=== PATIENT | male | born 1990 | race Caucasian/White ===

== ENCOUNTER 2021-02-08 01:28 | Day surgery (SDC) | payer MEDICARE, MEDICAID, SELFPAY ==
[2021-02-07 08:53] VITALS: BMI 28.3
--- NOTE | 2021-02-07 09:18 | PC.NURSE ---
Report to the Outpatient Waiting Room, entrance under the green pavilion located off [facility], at 1145 on date 02/08/21. OR Time: 1345 - You and your visitor will be asked a series of questions to screen for COVID 19 for your protection. - A mask is required within the hospital. - Only one visitor is allowed at this time. Patient visitors will be guided where to wait when not with patient. Preoperative COVID Testing Requirements: No COVID Test needed if: (proof is required; if not received patient will have Rapid Test prior to entry) - Patient has received COVID Vaccine at least 14 days prior to procedure date or - Patient has positive COVID test result within last 90 days of surgery date. COVID Test needed if above criteria is not met If not COVID vaccinated a COVID test must be conducted within 72 hours of surgery and patient is asked to isolate self from time of testing until procedure. You will go to the [facility] for your COVID testing. The [facility] site is located at the corner of [address] [facility]. You will only be called if COVID results are positive and your surgeon may reschedule your elective surgery date. Patients may have clear liquids (water, carbonated beverages, clear teas, apple juice) until 3 hours prior to surgery with a maximum of 20 ounces. - No food from midnight until time of surgery - Infants may have breast milk until 4 hours before surgery, formula 6 hours prior to surgery. - Children will be allowed to drink immediately following surgery. If applicable, please bring a bottle or sippy cup to assist with drinking. Juice, water, soda, and popsicles are readily available. For infants on formula, please bring formula the day of surgery. Pacifiers are allowed. Take the following medications with a SIP of water the morning of surgery: COGENTIN, BUSPIRONE, DEPAKOTE, SYNTHROID Medications to discontinue per physician: VITAMINS/SUPPLEMENTS Date to take last dose: NOW Please no make-up, nail yakut, hairspray, perfume, deodorant, or body powder the day of surgery. No jewelry (including any body piercings) or valuables the day of surgery, leave them at home. Please take a shower or bath the night before, or the morning of, surgery with an antibacterial soap. Wear comfortable, loose fitting clothing. Children are encouraged to wear pajamas. - Jewelry must be removed prior to entering the operating room. Rings and piercings that are not removed may be cut off. - The hospital will not accept responsibility for valuables. - Please leave all valuables, including medications, at home the day of surgery. If you are going home after surgery, a licensed driver trainer must drive you home. - NO public transportation without another adult. - We recommend that an adult stay with you for 24 hours following discharge. - We also recommend that you do not drive, make important decision, drink alcoholic beverages, or take any drugs that were not prescribed by your health care provider for at least 24 hours after your discharge time. For Pediatric surgeries, we recommend two adults accompany the child home (only one inside the building at this time). Follow any additional instructions given to you from your surgeon. Instructions FAXED TO [facility] ATTN: HERBIE GOMES and asked if any additional questions and then verbalized understanding. Patient advised to call surgeon office or pre surgery nurse liaison [phone] if any additional questions.
[2021-02-08] VITALS (10 sets, daily range): BP systolic 99–120; BP diastolic 48–71; PULSE 62–80; RESP 12–16; TEMP 36.4–37.1; O2SAT 100
--- NOTE | 2021-02-08 06:48 | WPDHPUPDATE1 ---
History and Physical Update Update Date/Time: 02/08/21 06:48 History and Physical has been reviewed, including an updated exam of the patient. There are NO changes in the patient's condition. Risks, benefits, and alternatives have been discussed and questions answered. Patient agrees to proceed with procedure.
[2021-02-08] MEDS: LACTATED RINGERS 1,000 ML 30 ML IV CONT (12:23)
--- NOTE | 2021-02-08 13:05 | P.PNAN_ITS ---
Anes - Initial Pre Proc Eval Procedure: Operation Date: 02/08/21 13:45 Proposed Procedures p Cystoscopy, Urethral Dilatation - Tani Shepherd MD Date/Time: 02/08/21 13:05 Surgeon: Tani Shepherd MD Pre Op Diagnosis: bladder retention Patient Data Age: 30 Gender: M Height: 1.85 m Weight: 97.52 kg Last Vital Signs Temp 37.1 C 02/08/21 12:27 Pulse 75 02/08/21 12:27 Resp 16 02/08/21 12:27 BP 106/56 L 02/08/21 12:27 Pulse Ox 100 02/08/21 12:27 Allergies Allergy/AdvReac Type Severity Reaction Status Date / Time No Known Allergies Allergy Verified 02/07/21 08:41 Home Medications Medication Instructions Recorded Confirmed Type acetaminophen 650 mg PO Q4H PRN 02/07/21 02/07/21 History benztropine [Cogentin] 1 mg PO BID 02/07/21 02/07/21 History buspirone 7.5 mg PO BID 02/07/21 02/07/21 History divalproex [Depakote] 500 mg PO TID 02/07/21 02/07/21 History ergocalciferol (vitamin D2) 1,250 mcg PO WEEKLY 02/07/21 02/07/21 History [Vitamin D2] ferrous sulfate 325 mg PO DAILY 02/07/21 02/07/21 History folic acid 1 mg PO DAILY 02/07/21 02/07/21 History levothyroxine [Synthroid] 50 mcg PO DAILY 02/07/21 02/07/21 History lithium carbonate 450 mg PO HS 02/07/21 02/07/21 History lurasidone [Latuda] 100 mg PO QPM 02/07/21 02/07/21 History olanzapine [Zyprexa] 5 mg PO HS 02/07/21 02/07/21 History polyethylene glycol 3350 [Miralax] 17 g PO DAILY PRN 02/07/21 02/07/21 History sodium chloride [[place] Nasal] 1 spray INTRANASAL BID 02/07/21 02/07/21 History tamsulosin 0.4 mg PO DAILY 02/07/21 02/07/21 History vitamin J19-paatv acid 1 tablet PO DAILY 02/07/21 02/07/21 History Patient hx anesthesia problems: none Family hx anesthesia problems: none Results Review: All pre-operative results and documents have been reviewed as part of the pre-operative evaluation. [facility] Past Medical History Medical History (Updated 02/08/21 @ 13:06 by Jason Cook MD) Anxiety Autism Developmental mental disorder Schizophrenia Social History Social History Smoking status: Never smoker Living arrangements: long-term Additional living arrangements comments: [facility] Lee Final PreProcedure Day of Procedure 02/08/21 13:05 Patient weight: overweight Heart: regular rate and rhythm Lungs: clear to auscultation Airway: Mallampati scale class II Neurological: alert and oriented Last oral intake: >/= 8 hours ASA classification: III Emergent: no Anesthetic plan: proceed Anesthesia type and monitoring: general LMA and standard monitoring Results Review: All pre-operative results and documents have been reviewed as part of the pre-operative evaluation. Informed Consent: The patient's anesthetic plan and its attendant risks and benefits were discussed with the patient/family/POA. Questions were solicited and answers provided to the satisfaction of the patient/family/POA.
[2021-02-08] MEDS: ceFAZolin 2 GM/D5W 50 ML 2 GM/50 ML BAG IVPB (14:26)
--- NOTE | 2021-02-08 14:53 | W.PM.PROC2 ---
Procedure Note - Detailed Date of Procedure 02/08/21 Pre-op Diagnosis Urinary retention, urethral stricture Post-op Diagnosis same Procedure Performed Cystoscopy, urethral dilatation Surgeon Tani Shepherd MD Anesthesia general Description of Procedure The patient was brought to the operative suite where he was prepped and draped in a routine sterile fashion while in a dorsal lithotomy position after the uneventful induction of a general LMA anesthetic. Cystoscopy was undertaken with a 19F rigid cystoscope. There is a moderately constricting bulbous urethral stricture. The prostatic urethral estimated length was 1.0cm. There was no obstruction of the prostatic urethra with no median lobe enlargement. The bladder itself was endoscopically normal without foreign body or neoplasm. The bladder mucosa was without hyperemia. There was a single orthotopic ureteral orifice bilaterally with clear efflux of urine. Using the Franklin sounds I dilated the urethra and bladder neck from 16F -> 30F. The bladder was emptied and the patient was taken to the recovery room in good condition Drains No Packing No Pathology none sent Complications No immediate complications Condition stable Disposition PACU
--- NOTE | 2021-02-08 17:32 | SUR.PHASEII ---
RN called [facility] and left a message for them to call us back for report.
== END 2021-02-08 17:22 | disposition home or self-care (01) ==
PROVIDERS: PCP Family Medicine; Visit Provider Urology
PROC: 0T7D8ZZ Dilation of Urethra, Via Natural or Artificial Opening Endoscopic (ICD-10-PCS; CPT 52281; principal; 2021-02-08 13:45)
DX: N35.912 Unspecified bulbous urethral stricture, male (principal); R33.9 Retention of urine, unspecified; F20.9 Schizophrenia, unspecified; F84.0 Autistic disorder; F41.9 Anxiety disorder, unspecified
CPT/HCPCS: 52281; A9270; J0690; J2250; J2704; J3010; J7120

== ENCOUNTER 2021-11-06 08:54 | Outpatient (CLI) | payer MEDICARE, MEDICAID, SELFPAY | END 2021-11-06 08:55 | disposition home or self-care (01) | LOC: ANHBWCAUD 08:55 | PROVIDERS: PCP Family Medicine; Visit Provider Family Medicine | DX: H91.93 Unspecified hearing loss, bilateral (principal) | CPT/HCPCS: 92557; 92567 ==

== ENCOUNTER 2024-11-17 07:54 | Outpatient (CLI) | payer MEDICARE, MEDICAID, SELFPAY ==
--- OUTSIDE RECORDS SUMMARY | 2024-11-17 07:57 | XMS_ITS | Encounter Summary ---
Author Organization [facility] Address [address] [place] [address] Phone Care Team Providers Care Legal Mediator Name Role Phone Jocy Welch MD Primary Care Provider [phone] Tyree Serna MD Primary Care Provider Jocy Welch MD Unavailable [phone] Ilir Nunez MD Primary Care Provider [phone] Nadya Harrell APRN, STAFF NURSE ANESTHETIST Unavailable [phone] Encounter Details Date Type Department Care Team (Late st Contact Info) Description 01/24/2021 Lab Requisition [facility] [address] [place] [id number] Tyree Serna MD [address] [place] [address] [address] [place] [address] Encounter for screening for COVID-19 Social History Tobacco Use Types Packs/Day Years Used Date Smoking Tobacco: Never Smokeless Tobacco: Never Sex and Gender Information Value Date Recorded Sex Assigned at Not on file Legal Sex Male 3:47 PM CDT Gender Identity Not on file Sexual Orientation Not on file COVID-19 Exposure Response Date Recorded In the last month, have you been in contact with someone who was confirmed or suspected to have Coronavirus / COVID-19? No / Unsure 01/03/2021 7:27 AM CDT documented as of this encounter Plan of Treatment Not on file documented as of this encounter Procedures Procedure Name Priority Date/Time Associated Diagnosis Comments SARS-COV-2 BY MOLECULAR Routine 01/24/2021 8:27 AM CDT Encounter for screening for COVID-19 documented in this encounter Results * SARS-COV-2 BY MOLECULAR (01/24/2021 8:27 AM CDT) SARSCOV2 NOT DETECTED (Referen ce Range for this test is Not Detected ) [facility] FAST DX 01/25/2021 10:27 AM CDT [facility] Comment:This test was perfor med by a RT-PCR method. Other Non-Phlebotomy Collection / Unknown 01/24/2021 8:27 AM CDT 01/24/2021 11:14 AM CDT Narrative [facility] - 01/25/2021 10:27 AM CDT Authorized Fact Sheets about this test for providers and patients are available at: https://www.fda.gov/medical-devices/edorzhcag-kvvxuhogmp-ovwrzuq-devices/emergen -us e-authorizations us Tyree Serna MD MICROBIOLOGY - GENERAL ORDERAB LES Final Result [facility] [address] [place] [id number], documented in this encounter Visit Diagnoses Diagnosis Encounter for screening for COVID-19 documented in this encounter Additional Health Concerns Infection Onset Date Last Indicated Resolved Time COVID - 19 12/27/2020 02/28/2021 03/06/2021 12:1 6 AM CLINICAL BIOSTATISTICS DIRECTOR COVID - 19 02/21/2021 05/30/2021 05/31/2021 11:1 0 AM CLINICAL BIOSTATISTICS DIRECTOR COVID - 19 Confirmed 05/30/2021 05/30/2021 022 12:18 AM CDT COVID - 19 08/29/2021 02/13/2022 02/23/2022 12:1 6 AM CLINICAL BIOSTATISTICS DIRECTOR COVID - 19 04/03/2022 06/19/2022 06/29/2022 12:1 6 AM CDT documented as of this encounter Care Teams Legal Mediator Relationship Specialty Start Date End Date Jocy Welch MD PCP - General Family Medicine 10/19/15 02/20/21 Tyree Serna MD [address] [place] [address] PCP - General Family Medicine 02/21/21 02/22/24 Ilir Nunez MD [address] [place] [address] PCP - General Family Medicine 02/23/24 Jocy Welch MD Family Medicine 02/21/21 04/04/21 Nadya Harrell, RUBBER MOLD MAKER, STAFF NURSE ANESTHETIST [address], [facility] [address] [place] [address] Certified Nurse Practitioner 02/23/24 documented as of this encounter
--- OUTSIDE RECORDS SUMMARY | 2024-11-17 07:57 | XMS_ITS | Encounter Summary ---
Author Organization [facility] Address [address] [place] [place] [address] Phone Care Team Providers Care Employee Benefits Administrator Name Role Phone Josie Templeton MD Primary Care Provider [phone] Nadya Harrell NP Primary Care Provider [phone] Encounter Details Date Type Department Care Team (Late st Contact Info) Description 01/30/2022 Orders Only [facility] [address] [place] [address] Scanning, Provider Social History Tobacco Use Types Packs/Day Years Used Date Smoking Tobacco: Never Smokeless Tobacco: Never PHQ-2 Answer Date Recorded PHQ-2 Total Score (If total score is 3 or more points, staff should administer the PHQ-9) 0 01/29/2022 Sex and Gender Information Value Date Recorded Sex Assigned at Not on file Legal 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 Gender Identity Not on file Sexual Orientation Not on file documented as of this encounter Plan of Treatment Not on file documented as of this encounter Procedures Procedure Name Priority Date/Time Associated Diagnosis Comments SCAN - LABS 01/30/2022 documented in this encounter Results * SCAN - LABS (01/30/2022) us Provider Scanning Final Result documented in this encounter Visit Diagnoses Not on filedocumented in this encounter Care Teams Employee Benefits Administrator Relationship Specialty Start Date End Date Josie Templeton MD PCP - General Family Practice 01/29/22 11/26/23 Nadya Harrell NP [address] [place] [address] PCP - General Family Medicine 11/27/23 documented as of this encounter
--- OUTSIDE RECORDS SUMMARY | 2024-11-17 07:57 | XMS_ITS | Encounter Summary ---
Author Organization [facility] Address [address] [place] [address] Phone Care Team Providers Care Desulfurizer Operator Name Role Phone Tyree Serna MD Primary Care Provider [phone] Ilir Nunez MD Primary Care Provider [phone] Nadya Harrell APRN, INTERNAL SECURITY MANAGER Unavailable [phone] Encounter Details Date Type Department Care Team (Latest Contact Info) Description 02/11/2024 Lab Requisition [facility] Laboratory Services [address] [place] [address] Nadya Harrell, PUMPMAN, INTERNAL SECURITY MANAGER [address] , [facility] [address] [place] [address] Congenital hypothyroidism with diffuse goiter; Anxiety disorder, unspecified; Pervasive developmental disorder, unspecified; Mild intellectual disabilities; Personality disorder, unspecified (HCC); Bipolar disorder, unspecified (HCC); Schizophrenia, unspecified (HCC); Anemia, unspecified Social History Tobacco Use Types Packs/Day Years Used Date Smoking Tobacco: Never Smokeless Tobacco: Never Alcohol Use Standard Drinks/Week Comments Never 0 (1 standard drink = 0.6 oz pur e alcohol) Sex and Gender Information Value Date Recorded Sex Assigned at Not on file Legal Sex Male 3:47 PM CDT Gender Identity Not on file Sexual Orientation Not on file documented as of this encounter Plan of Treatment Not on file documented as of this encounter Procedures Procedure Name Priority Date/Time Associated Diagnosis Comments CBC WITH AUTO DIFFERENTIAL Routine 02/11/2024 9:23 AM FOOD AND DRUG INSPECTOR Congenital hypothyroidism with diffuse goiter Anxiety disorder, unspecified Pervasive developmental disorder, unspecified Mild intellectual disabilities Personality disorder, unspecified (HCC) Bipolar disorder, unspecified (HCC) Schizophrenia, unspecified (HCC) Anemia, unspecified VALPROIC ACID (DEPAKENE) Routine 02/11/2024 9:23 AM FOOD AND DRUG INSPECTOR Congenital hypothyroidism with diffuse goiter Anxiety disorder, unspecified Pervasive developmental disorder, unspecified Mild intellectual disabilities Personality disorder, unspecified (HCC) Bipolar disorder, unspecified (HCC) Schizophrenia, unspecified (HCC) Anemia, unspecified THYROXINE (T4) TOTAL Routine 02/11/2024 9:23 AM FOOD AND DRUG INSPECTOR Congenital hypothyroidism with diffuse goiter Anxiety disorder, unspecified Pervasive developmental disorder, unspecified Mild intellectual disabilities Personality disorder, unspecified (HCC) Bipolar disorder, unspecified (HCC) Schizophrenia, unspecified (HCC) Anemia, unspecified THYROID STIMULATING HORMONE (TSH) Routine 02/11/2024 9:23 AM FOOD AND DRUG INSPECTOR Congenital hypothyroidism with diffuse goiter Anxiety disorder, unspecified Pervasive developmental disorder, unspecified Mild intellectual disabilities Personality disorder, unspecified (HCC) Bipolar disorder, unspecified (HCC) Schizophrenia, unspecified (HCC) Anemia, unspecified LITHIUM Routine 02/11/2024 9:23 AM FOOD AND DRUG INSPECTOR Congenital hypothyroidism with diffuse goiter Anxiety disorder, unspecified Pervasive developmental disorder, unspecified Mild intellectual disabilities Personality disorder, unspecified (HCC) Bipolar disorder, unspecified (HCC) Schizophrenia, unspecified (HCC) Anemia, unspecified LIPID PANEL Routine 02/11/2024 9:23 AM FOOD AND DRUG INSPECTOR Congenital hypothyroidism with diffuse goiter Anxiety disorder, unspecified Pervasive developmental disorder, unspecified Mild intellectual disabilities Personality disorder, unspecified (HCC) Bipolar disorder, unspecified (HCC) Schizophrenia, unspecified (HCC) Anemia, unspecified CMP (COMPREHENSIVE METABOLIC PANEL) Routine 02/11/2024 9:23 AM FOOD AND DRUG INSPECTOR Congenital hypothyroidism with diffuse goiter Anxiety disorder, unspecified Pervasive developmental disorder, unspecified Mild intellectual disabilities Personality disorder, unspecified (HCC) Bipolar disorder, unspecified (HCC) Schizophrenia, unspecified (HCC) Anemia, unspecified COMPLETE BLOOD COUNT (CBC) WITH DIFF Routine 02/11/2024 9:23 AM FOOD AND DRUG INSPECTOR Congenital hypothyroidism with diffuse goiter Anxiety disorder, unspecified Pervasive developmental disorder, unspecified Mild intellectual disabilities Personality disorder, unspecified (HCC) Bipolar disorder, unspecified (HCC) Schizophrenia, unspecified (HCC) Anemia, unspecified documented in this encounter Results * (ABNORMAL) CBC WITH AUTO DIFFERENTIAL (02/11/2024 9:23 AM [facility]) [facility] WBC 7.70 4.00 - 12.00 10(3)/mcL 02/11/2024 9:34 AM [facility] RBC 4.04(L) 4.40 - 5.80 10(6)/mcL 02/11/2024 9:34 AM [facility] HEMOGLOBIN (HGB) 12.4(L) 13.0 - 16.5 g/dL 02/11/2024 9:34 AM [facility] HEMATOCRIT (HCT) 37.8(L) 38.0 - 50.0 % 02/11/2024 9:34 AM [facility] MCV 93.6 82.0 - 96.0 fL 02/11/2024 9:34 AM [facility] MCH 30.7 26.0 - 32.0 pg 02/11/2024 9:34 AM [facility] MCHC 32.8 31.0 - 36.0 g/dL 02/11/2024 9:34 AM [facility] PLATELET COUNT 263 140 - 440 10(3)/mcL 02/11/2024 9:34 AM [facility] RDW 12.9 11.8 - 15.5 % 02/11/2024 9:34 AM [facility] MPV 10.3 8.0 - 12.6 fL 02/11/2024 9:34 AM [facility] NEUTROPHILS 50.2 40.0 - 68.0 % 02/11/2024 9:34 AM FOOD AND DRUG INSPECTOR [facility] LYMPHOCYTES 38.8 19.0 - 49.0 % 02/11/2024 9:34 AM [facility] MONOCYTES 7.9 3.0 - 13.0 % 02/11/2024 9:34 AM [facility] EOSINOPHILS 2.7 0.0 - 8.0 % 02/11/2024 9:34 AM [facility] BASOPHILS 0.4 0.0 - 1.0 % 02/11/2024 9:34 AM FOOD AND DRUG INSPECTOR [facility] ABSOLUTE NEUTROPHILS 3.86 1.40 - 5.30 10(3)/[facility] 02/11/2024 9:34 AM [facility] ABSOLUTE LYMPHOCYTES 2.99 0.90 - 3.30 10(3)/[facility] 02/11/2024 9:34 AM [facility] ABSOLUTE MONOCYTES 0.61 0.10 - 0.90 10(3)/[facility] 02/11/2024 9:34 AM [facility] ABSOLUTE EOSINOPHIL 0.21 0.00 - 0.50 10(3)/[facility] 02/11/2024 9:34 AM [facility] ABSOLUTE BASOPHILS 0.03 0.00 - 0.10 10(3)/[facility] 02/11/2024 9:34 AM [facility] NRBC PER 100 WBC 0 02/11/20 9:34 AM [facility] Blood Venipuncture / Unknown 02/11/2024 9:23 AM [facility] 02/11/2024 9:24 AM FOOD AND DRUG INSPECTOR us Nadya Harrell PUMPMAN, INTERNAL SECURITY MANAGER HEMATOLOGY ORDERABLES F inal Result [facility] [address] [place] [address] * THYROID STIMULATING HORMONE (TSH) (02/11/2024 9:23 AM FOOD AND DRUG INSPECTOR) TSH 1.813 0.300 - 5.000 mIU/L 02/11/2024 10:16 AM FOOD AND DRUG INSPECTOR [facility] Blood Venipuncture / Unknown 02/11/2024 9:23 AM FOOD AND DRUG INSPECTOR 02/11/2024 9:24 AM FOOD AND DRUG INSPECTOR us Nadya L Sharri PUMPMAN, INTERNAL SECURITY MANAGER CHEMISTRY ORDERABLES Fi nal Result [facility] [place] [address] * THYROXINE (T4) TOTAL (02/11/2024 9:23 AM FOOD AND DRUG INSPECTOR) T4 6.1 5.0 - 13.0 mcg/dL 02/11/2024 10:16 AM FOOD AND DRUG INSPECTOR [facility] Blood Venipuncture / Unknown 02/11/2024 9:23 AM FOOD AND DRUG INSPECTOR 02/11/2024 9:24 AM FOOD AND DRUG INSPECTOR us Nadya L Sharri PUMPMAN, INTERNAL SECURITY MANAGER CHEMISTRY ORDERABLES Fi nal Result Performing Organization Address City/[facility]/ZIP Co de Phone Number [facility] [address] [place] [address] * (ABNORMAL) LITHIUM (02/11/2024 9:23 AM FOOD AND DRUG INSPECTOR) LITHIUM 0.7(L) 0.8 - 1.2 mmol/L 02/11/2024 9:47 AM FOOD AND DRUG INSPECTOR [facility] Blood Venipuncture / Unknown 02/11/2024 9:23 AM FOOD AND DRUG INSPECTOR 02/11/2024 9:24 AM FOOD AND DRUG INSPECTOR us Nadya L Sharri PUMPMAN, INTERNAL SECURITY MANAGER CHEMISTRY ORDERABLES Fi nal Result [facility] [address] [place] [address] * VALPROIC ACID (DEPAKENE) (02/11/2024 9:23 AM FOOD AND DRUG INSPECTOR) VALPROIC ACID TOTAL 63 50 - 100 mcg/mL 02/11/2024 10:51 AM FOOD AND DRUG INSPECTOR [facility] Blood Venipuncture / Unknown 02/11/2024 9:23 AM FOOD AND DRUG INSPECTOR 02/11/2024 9:24 AM FOOD AND DRUG INSPECTOR us Nadya L Sharri PUMPMAN, INTERNAL SECURITY MANAGER CHEMISTRY ORDERABLES Fi nal Result Performing Organization Address City/[facility]/ZIP Co de Phone Number [facility] [address] [place] [address] * (ABNORMAL) LIPID PANEL (02/11/2024 9:23 AM FOOD AND DRUG INSPECTOR) [facility] CHOLESTEROL 163 <200 mg/dL 02/11/2024 10:02 AM [facility] TRIGLYCERIDES 185(H) <150 mg/dL 02/11/2024 10:02 AM FOOD AND DRUG INSPECTOR [facility] HDL CHOLESTEROL 39(L) >40 mg/dL 10:02 AM [facility] LDL 87 <130 mg/dL 02/11/2024 10:02 AM [facility] VLDL 37 10 - 50 mg/dL 02/11/2024 10:02 AM [facility] CHOL/HDL RATIO 4.2 0.0 - 4.4 02/11/2024 10:02 AM [facility] NON-HDL CHOLESTEROL 124 <130 mg/dL 02/11/2024 10:02 AM [facility] Blood Venipuncture / Unknown 02/11/2024 9:23 AM FOOD AND DRUG INSPECTOR 02/11/2024 9:24 AM FOOD AND DRUG INSPECTOR us Nadya L Sharri PUMPMAN, INTERNAL SECURITY MANAGER CHEMISTRY ORDERABLES Fi nal Result Performing Organization Address City/[facility]/ZIP Co de Phone Number [facility] [address] [place] [address] * (ABNORMAL) CMP (COMPREHENSIVE METABOLIC PANEL) (02/11/2024 9:23 AM [facility]) SODIUM 142 136 - 145 mmol/L 02/11/2024 10:02 AM [facility] POTASSIUM 4.4 3.5 - 5.1 mmol/L 02/11/2024 10:02 AM [facility] CHLORIDE 110(H) 98 - 107 mmol/L 02/11/2024 10:02 AM [facility] CO2, VENOUS 25 22 - 30 mmol/L 02/11/2024 10:02 AM [facility] ANION GAP 11.4 <18.0 mmol/L 02/11/2024 10:02 AM [facility] GLUCOSE 68(L) 70 - 99 mg/dL 02/11/2024 10:02 AM [facility] BUN 12 9 - 21 mg/dL 02/11/2024 10:02 AM [facility] CREATININE, BLOOD 1.18 0.70 - 1.30 mg/dL 02/11/2024 10:02 AM [facility] BUN/CREATININE RATIO 10(L) 12 - 20 ratio 02/11/2024 10:02 AM [facility] TOTAL PROTEIN 6.8 6.3 - 8.2 g/dL 02/11/2024 10:02 AM [facility] ALBUMIN 4.0 3.5 - 5.0 g/dL 02/11/2024 10:02 AM [facility] A/G RATIO 1.4 1.0 - 2.2 02/11/2024 10:02 AM [facility] CALCIUM 9.4 8.7 - 10.5 mg/dL 02/11/2024 10:02 AM [facility] T BILI 0.5 0.2 - 1.2 mg/dL 02/11/2024 10:02 AM [facility] SGOT (AST) 18 5 - 34 U/L 02/11/2024 10:02 AM [facility] SGPT (ALT) 17 0 - 55 U/L 02/11/2024 10:02 AM [facility] ALKALINE PHOSPHATASE 42 40 - 150 U/L 02/11/2024 10:02 AM [facility] GFR, ESTIMATED >60 >=60 02/11/2024 10:02 AM [facility] Comment: Creatinine Clearance is the preferred criteria for selecting drug dose adjustments in renally impaired patients. The GFR is provided as additional pertinent clinical information. GFR is reported in mL/min/1.73 sq m. Calculation based on the Chronic Kidney Disease Epidemiology Collaboration (CKD- EPI) equation refit without adjustment for race. GFR, EST. >60 >=60 024 10:02 AM [facility] GFR, EST. NONAFRICAN >60 >=60 02/11/2024 10:02 AM [facility] Blood Venipuncture / Unknown 02/11/2024 9:23 AM FOOD AND DRUG INSPECTOR 02/11/2024 9:24 AM FOOD AND DRUG INSPECTOR us Nadya Harrell APRN, INTERNAL SECURITY MANAGER CHEMISTRY ORDERABLES Fi nal Result [facility] [address] [place] [address] documented in this encounter Visit Diagnoses Diagnosis Congenital hypothyroidism with diffuse goiter Congenital hypothyroidism Anxiety disorder, unspecified Pervasive developmental disorder, unspecified Mild intellectual disabilities Personality disorder, unspecified Bipolar disorder, unspecified (HCC) Bipolar disorder, unspecified Schizophrenia, unspecified Anemia, unspecified documented in this encounter Care Teams Desulfurizer Operator Relationship Specialty Start Date End Date Tyree Serna MD [address] [place] [address] PCP - General Family Medicine 02/21/21 02/22/24 [place] [address] PCP - General Family Medicine 02/23/24 Nadya Harrell, PUMPMAN, INTERNAL SECURITY MANAGER [address], [address] [address] Certified Nurse Practitioner 02/23/24 documented as of this encounter
--- OUTSIDE RECORDS SUMMARY | 2024-11-17 07:57 | XMS_ITS | Encounter Summary ---
Author Organization [facility] Address [address] [place] [address] Phone Care Team Providers Care Pediatric Clinical Nurse Specialist Name Role Phone Jocy Welch MD Primary Care Provider Tyree Serna MD Primary Care Provider Jocy Welch MD Unavailable [phone] Ilir Nunez MD Primary Care Provider [phone] Nadya Harrell APRN, ORNAMENTAL BRICK INSTALLER Unavailable [phone] Encounter Details Date Type Department Care Team (Late st Contact Info) Description 01/10/2021 Lab Requisition [facility] Laboratory Services [address] [place] [id number] Tyree Serna MD [address] [place] [address] [address] [place] [address] Encounter for screening for COVID-19 [...] Associated Diagnosis Comments SARS-COV-2 BY MOLECULAR Routine 01/10/2021 8:44 AM CDT Encounter for screening for COVID-19 documented in this encounter Results * SARS-COV-2 BY MOLECULAR (01/10/2021 8:44 AM CDT) SARSCOV2 NOT DETECTED (Referen ce Range for this test is Not Detected ) [facility] FAST DX 01/11/2021 11:08 AM CDT [facility] Comment:This test was perfor med by a RT-PCR method. Other Non-Phlebotomy Collection / Unknown 01/10/2021 8:44 AM CDT 01/10/2021 10:23 AM CDT Narrative [facility] - 01/11/2021 11:08 AM CDT Authorized Fact Sheets about this test for providers and patients are available at: https://www.fda.gov/medical-devices/ggbjvykni-dtdzvfpvnh-lwzwive-devices/emergen -us e-authorizations us Tyree Serna MD MICROBIOLOGY - GENERAL ORDERAB LES Final Result [facility] [address] [place] [address], documented in this encounter Visit Diagnoses Diagnosis Encounter for screening for COVID-19 documented in this encounter Additional Health Concerns Infection Onset Date Last Indicated Resolved Time COVID - 19 12/27/2020 02/28/2021 03/06/2021 12:1 6 AM NEWS CLIPPING CUTTER COVID - 19 02/21/2021 05/30/2021 05/31/2021 11:1 0 AM NEWS CLIPPING CUTTER COVID - 19 Confirmed 05/30/2021 05/30/2021 022 12:18 AM CDT COVID - 19 08/29/2021 02/13/2022 02/23/2022 12:1 6 AM NEWS CLIPPING CUTTER COVID - 19 04/03/2022 06/19/2022 06/29/2022 12:1 6 AM CDT documented as of this encounter Care Teams Pediatric Clinical Nurse Specialist Relationship Specialty Start Date End Date Jocy Welch MD PCP - General Family Medicine 10/19/15 02/20/21 Tyree Serna MD [address] [place] [address] PCP - General Family Medicine 02/21/21 02/22/24 Ilir Nunez MD [address] [place] [address] PCP - General Family Medicine 02/23/24 Jocy Welch MD Family Medicine 02/21/21 04/04/21 Nadya Harrell, SOFTWARE PROJECT MANAGER, ORNAMENTAL BRICK INSTALLER [address], [facility] [address] [place] [address] Certified Nurse Practitioner 02/23/24 documented as of this encounter
--- OUTSIDE RECORDS SUMMARY | 2024-11-17 07:57 | XMS_ITS | Encounter Summary ---
Author Organization [facility] Address [address] [place] [address] Phone Care Team Providers Care Undercoat Sprayer Name Role Phone Tyree Serna MD Primary Care Provider [phone] Jocy Welch MD Unavailable Ilir Nunez MD Primary Care Provider Nadya Harrell APRN, STITCHING MACHINE FEEDER OR OFFBEARER Unavailable Encounter Details Date Type Department Care Team (Late st Contact Info) Description 03/14/2021 Lab Requisition [facility] Laboratory Services [address] [place] [address] Tyree Serna MD [address] [place] [address] [address] [place], [place] [id number] Encounter for screening for COVID-19 Social History [...] Associated Diagnosis Comments SARS-COV-2 BY MOLECULAR Routine 03/14/2021 8:23 AM BRIM IRONER HAND Encounter for screening for COVID-19 documented in this encounter Results * SARS-COV-2 BY MOLECULAR (03/14/2021 8:23 AM BRIM IRONER HAND) SARSCOV2 NOT DETECTED (Referen ce Range for this test is Not Detected ) [facility]MOF[facility] FAST DX 03/15/2021 5:59 PM BRIM IRONER HAND [facility] Comment:This test was perfor med by a RT-PCR method. Other No Phlebotomy Charged / Unknown 03/14/2021 8:23 AM BRIM IRONER HAND 03/14/2021 11:05 AM BRIM IRONER HAND Narrative [facility] - 03/15/2021 5:59 PM BRIM IRONER HAND Authorized Fact Sheets about this test for providers and patients are available at: https://www.fda.gov/medical-devices/gtgiekdsu-npsjdhozna-kimiyxq-devices/emergen -us e-authorizations us Tyree Serna MD MICROBIOLOGY - GENERAL ORDERAB LES Final Result [facility] [address] [place] [address], documented in this encounter Visit Diagnoses Diagnosis Encounter for screening for COVID-19 documented in this encounter Additional Health Concerns Infection Onset Date Last Indicated Resolved Time COVID - 19 02/21/2021 05/30/2021 05/31/2021 11:1 0 AM BRIM IRONER HAND COVID - 19 Confirmed 05/30/2021 05/30/2021 022 12:18 AM CDT COVID - 19 08/29/2021 02/13/2022 02/23/2022 12:1 6 AM BRIM IRONER HAND COVID - 19 04/03/2022 06/19/2022 06/29/2022 12:1 6 AM CDT documented as of this encounter Care Teams Undercoat Sprayer Relationship Specialty Start Date End Date Tyree Serna MD [address] [address] PCP - General Family Medicine 02/21/21 02/22/24 [place] [address] [address] PCP - General Family Medicine 02/23/24 Jocy Welch MD [address] [place] [address] Family Medicine 02/21/21 04/04/21 Nadya Harrell, CULLET CRUSHER AND WASHER, STITCHING MACHINE FEEDER OR OFFBEARER [address], [facility] [address] [place] [address] Certified Nurse Practitioner 02/23/24 documented as of this encounter
--- OUTSIDE RECORDS SUMMARY | 2024-11-17 07:57 | XMS_ITS | Clinical Summary ---
Author Organization [address] Address [address] [place] [id number] Care Team Providers Care Garment Sewing Machine Operator Name Role Phone Nadya Harrell NP Primary Care Provider [phone] Allergies No known active allergies Medications levothyroxine (SYNTHROID, LEVOTHROID) 50 mcg tablet Take 1 tablet (50 mcg total) by mouth clay maker before breakfast Active ferrous sulfate 325 mg (65 mg of elemental iron) tabletIndications: Iron Deficiency Anemia Take 1 tablet (325 mg total) by mouth daily with breakfast Active folic acid (FOLVITE) 1 mg tablet Take 1 tablet (1 mg total) by mouth daily Active cholecalciferol (VITAMIN D-3) 50,000 unit capsule Take 1 capsule (50,000 Units total) by mouth once a week Active cyanocobalamin (Vitamin B-12) 1,000 mcg tabletIndications: Prevention of Vitamin B12 Deficiency Take 1 tablet (1,000 mcg total) by mouth daily Active benztropine (COGENTIN) 1 mg tablet Take 1 tablet (1 mg total) by mouth 2 (two) times a day Active busPIRone (BUSPAR) 7.5 mg tabletIndications: Generalized Anxiety Disorder Take 1 tablet (7.5 mg total) by mouth 3 (three) times a day Active divalproex DR (DEPAKOTE) 500 mg EC tablet Take 1 tablet (500 mg total) by mouth 3 (three) times a day Active lurasidone (LATUDA) 20 mg tablet 1 tablet (20 mg total) daily Take with 80 mg tablet to equal 100 mg Active lithium 150 mg capsule Take 1 capsule (150 mg total) by mouth 3 (three) times a day with meals Active OLANZapine (ZyPREXA) 5 mg tablet Take 1 tablet (5 mg total) by mouth nightly Active bisacodyl (DULCOLAX) 10 mg suppositoryIndicat ions:constipation Insert 1 suppository (10 mg total) into the rectum daily Active ibuprofen (ADVIL,MOTRIN) 800 mg tablet Take 1 tablet (800 mg total) by mouth every 6 (six) hours as needed for pain Active acetaminophen (TYLENOL) 325 mg tablet Take 2 tablets (650 mg total) by mouth every 6 (six) hours as needed for pain Active polyethylene glycol (MIRALAX) 17 gram packetIndications: constipation Take 1 packet (17 g total) by mouth daily Active olopatadine (PATADAY) 0.2 % ophthalmic solutionIndication s:Allergic Conjunctivitis Administer 1 drop into both eyes daily 2.5 mL 07/28/19 19 Active sodium chloride (OCEAN) 0.65 % drops Administer 1 spray into affected nostril(s) 2 (two) times a day Active tamsulosin (FLOMAX) 0.4 mg extended release capsule TAKE (1) CAPSULE BY MOUTH DAILY. 28 capsule 05/09/19 24 Active lurasidone (LATUDA) 80 mg tablet Take 1 tablet (80 mg total) by mouth as directed Take 1 tablet by mouth every evening with meal ( take with 20 mg tablet to equal 100 mg) Active clotrimazole 1 % cream 11/25/19 24 Active ergocalciferol (VITAMIN D) 50,000 unit capsule 1 capsule (50,000 Units total) 11/13/19 24 Active Active Problems Problem Noted Date Diagnosed Date Encounter for medical examination to establish c are 11/27/2023 Assessment & Plan (11/27/2023 3:48 PM CDT): Doing well. Routine lab results reviewed. Diet and health maintenance as discussed. Recommend exercise of at least 30 minutes 5 days per week. Increase daily fluid intake. Follow-up for annual Medicare wellness visit as scheduled. Class 1 obesity with body ma ss index (BMI) of 30.0 to 30.9 in adult 11/27/2023 Assessment & Plan (11/27/2023 3:50 PM CDT): BMI 30.70. He was counseled on the importance of obtaining a healthy weight and the risks of obesity. Encouraged to increase his exercise. Weight loss recommended. Medicare annual wellness visit, subsequent 05/30 Assessment & Plan (05/30/2023 10:12 AM MULTISKILL OPERATOR): Annual Medicare wellness exam completed today. All questionnaires completed and reviewed with patient. No Concerns. BMI: 29.3 Overweight Dietary and exercise recommendations given Routine screening labs reviewed Preventative screening :N/A Routine vaccines Rec: Flu, COVID booster Medications refilled Referrals placed prn Furuncle of left axilla 04/10/2023 Assessment & Plan (04/10/2023 3:30 PM MULTISKILL OPERATOR): Acute. Firmly indurated on PE Wound culture collected. Keflex 500 mg q.i.d. x7 days. Risks/benefits alternatives discussed Contact clinic in 1-2 weeks if symptoms ongoing Keep scheduled follow-up Onychomycosis 11/26/2022 Assessment & Plan (04/10/2023 3:30 PM MULTISKILL OPERATOR): F/u with podiatry for toenail removal. Stop clotrimazole Assessment & Plan (11/26/2022 12:37 PM CDT): F/u with podiatry for toenail removal. Stop clotrimazole Schizophrenia 01/29/2022 Assessment & Plan (11/27/2023 3:50 PM CDT): Stable on present medication. This is followed by Psychiatry Assessment & Plan (05/30/2023 10:04 AM MULTISKILL OPERATOR): Chronic and stable. Patient followed by Psychiatry for this chronic condition. Assessment & Plan (01/29/2022 1:09 PM CDT): Chronic and stable. Patient should be followed by Psychiatry for this chronic condition. Review paperwork unable to determine if patient is still under the care of psychiatry. Will place referral and reach out to facility to confirm Iron deficiency anemia 01/29/2022 Assessment & Plan (11/27/2023 3:49 PM CDT): Continue iron supplement and increase iron rich foods in diet Assessment & Plan (05/30/2023 10:04 AM MULTISKILL OPERATOR): Chronic. H&H still mildly decreased but stable. Heme consulted and recommend continuing iron supplement. Outside labs reviewed. Will continue to monitor Assessment & Plan (11/26/2022 12:37 PM CDT): Chronic. H&H still mildly decreased but stable. Outside labs reviewed. Continue current medication and will monitor Assessment & Plan (05/24/2022 12:37 PM MULTISKILL OPERATOR): Reviewed most recent las and H&H stable. Denies ongoing diarrhea so will hold on GI referral. Currently under evaluation with Hematology you continue to follow-up as instructed. Review of Hematology notes states patient endorsed intermittent hematuria therefore planned to refer to Urology. Will discuss further at follow-up in 6 months to ensure that evaluation occurred. Will continue to monitor this chronic condition Assessment & Plan (01/29/2022 1:08 PM CDT): Chronic and stable. Continue current medication. Will obtain lab and adjust meds prn. Consider GI evaluation with colonoscopy for chronic iron deficiency anemia if not completed in the past Vitamin D deficiency 01/29/2022 Assessment & Plan (11/27/2023 3:49 PM CDT): Continue vitamin-D supplement Assessment & Plan (05/30/2023 10:04 AM MULTISKILL OPERATOR): Chronic and stable. Outside labs reviewed. Continue current medication and will monitor Assessment & Plan (11/26/2022 12:36 PM CDT): Chronic and stable. Outside labs reviewed. Continue current medication and will monitor Assessment & Plan (01/29/2022 1:07 PM CDT): Chronic and stable. Continue current medication. Will obtain lab and adjust meds prn Hypothyroidism 01/29/2022 Assessment & Plan (11/27/2023 3:49 PM CDT): Continue levothyroxine 50 mcg daily Assessment & Plan (05/30/2023 10:03 AM MULTISKILL OPERATOR): Chronic and stable. Outside labs reviewed. Continue current medication and will monitor Assessment & Plan (11/26/2022 12:37 PM CDT): Chronic and stable. Outside labs reviewed. Continue current medication and will monitor Assessment & Plan (01/29/2022 1:07 PM CDT): Chronic and stable. Continue current medication. Will obtain lab and adjust meds prn Intellectual delay 01/29/2022 Assessment & Plan (05/30/2023 10:05 AM MULTISKILL OPERATOR): Chronic and stable Mental developmental delay 01/29/2022 Diarrhea 01/29/2022 Assessment & Plan (01/29/2022 1:07 PM CDT): Recurrent. Ddx: IBS versus functional diarrhea. Patient had CT scan performed 02/25, will request results. Patient advised to continue to hydrate well with water monitor fiber intake. Note sent to facility advising medical physics professor to monitor how frequently patient is having to take anti diarrhea medication. 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 Bipolar disorder 02/25/2013 Pervasive developmental disorder 06/26/2011 Immunizations Immunization Administration Dates Next Due DTaP 11/02/1993, 2,07/04/1990,05/14,02/05/1990 Hep B Vaccine 07/05/1991,05/14/1990,02/11/1990 Influenza, Trivalent, Preser vative Free, Intramuscular 02/05/2018 Influenza, Unspecified 01/13/2023(Deferr ed: Patient Refused),02/07/2020,01/20/2019, 019,01/20/2018,01/26/2013 MMR 10/18/1994,06/10/1991 PPD TEST 11/03/2013,10/13/2013 Pneumococcal Conjugate PCV 13 07/21/2018 Pneumococcal Conjugate Pcv20 04/05/2013 Pneumococcal Polysaccharide PPV23 04/05/2013 Polio, Unspecified 05/05/1993,03/13/1990 Td, Unspecified 03/08/2017 Tdap 03/05/2017 Surgical History Surgery Date Site/Laterality Comments OTHER SURGICAL HISTORY 02/08/2021 cystolurethral dialation Medical History Medical History Date Comments Thyroid disease Anemia Social History Tobacco Use Types Packs/Day Years Used Date Smoking Tobacco: Never Smokeless Tobacco: Never Tobacco Cessation:Counseling Given: Not Answered PHQ-2 Answer Date Recorded PHQ-2 Total Score (If total score is 3 or more points, staff should administer the PHQ-9) 0 05/30/2023 Personal Safety Answer Date Recorded Getting School Help Needed Not on file 04/06 Sex and Gender Information Value Date Recorded Sex Assigned at Not on file Legal Sex Male 9:29 AM MULTISKILL OPERATOR Gender Identity Not on file Sexual Orientation Not on file Obstetrics History Last Filed Vital Signs Vital Sign Reading Time Taken Comments Blood Pressure 105/70 11/27/2023 9:24 AM CDT Pulse 93 11/27/2023 9:24 AM CDT Temperature 36.6 C (97.9 F) 11/27/2023 9:24 AM CDT Respiratory Rate 18 05/30/2023 9:30 AM MULTISKILL OPERATOR Oxygen Saturation 98% 11/27/2023 9:24 AM CDT Inhaled Oxygen Concentration - - Weight 99.8 kg (220 lb) 11/27/2023 9:24 AM CDT Height 180.3 cm (5' 10.98) 11/27/2023 9:24 AM C DT Body Mass Index 30.7 11/27/2023 9:24 AM CDT Plan of Treatment Health Maintenance Due Date Last Done Comments Hepatitis C Screening 1989 Varicella Vaccines (1 of 2 - 13+ 2-dose series) 2002 HPV Vaccines (1 - 3-dose SCDM series) 2016 Covid-19 Vaccine ( season) 2023 07/17/2022, 02/09/2021, 06/09/2020, Additional history exists Depression Screening 05/30/2024 05/30/2023, 01/30/20 Regular Well Visit/Exam 18-64 11/26/2024 11/27/2023, 05/30/2023 Influenza Vaccine (#1) 2024 , 01/20/2019, 01/11/2019, Additional history exists DTaP/Tdap/Td Vaccine (8 - Td or Tdap) 03/08/2027 03/08/2017, 03/05/2017, 11/02/1993, Additional history exists Hepatitis B Screening Completed 07/05/1991 , 05/14/1990, 02/11/1990 Pneumococcal vaccine <65 Aged Out 019, 04/05/2013, 04/05/2013 No longer eligible based on patient's age to complete this topic Insurance [facility] MEDICARE ADVANTAGE [facility] MEDICARE ADVANTAGE [facility] MEDICARE ADVANTAGE Care Teams Garment Sewing Machine Operator Relationship Specialty Start Date End Date Nadya Harrell NP [address] [address] PCP - General Family Medicine 11/27/23
--- OUTSIDE RECORDS SUMMARY | 2024-11-17 07:57 | XMS_ITS | Encounter Summary ---
Author Organization [facility] Address [address] [place] [address] Phone Care Team Providers Care Maori Physiotherapist Name Role Phone Jocy Welch MD Primary Care Provider Tyree Serna MD Primary Care Provider Jocy Welch MD Unavailable [phone] Ilir Nunez MD Primary Care Provider [phone] Nadya Harrell APRN, LEAD QUALITY CONTROL TECHNICIAN Unavailable Encounter Details Date Type Department Care Team (Late st Contact Info) Description 12/27/2020 Lab Requisition [facility] Services [address] [place] [id number] Tyree Serna MD [address] [place] [address] [address] [place] [address] Social History Tobacco Use Types Packs/Day Years [...] Associated Diagnosis Comments SARS-COV-2 BY MOLECULAR Routine 12/27/2020 7:35 AM CDT documented in this encounter Results * SARS-COV-2 BY MOLECULAR (12/27/2020 7:35 AM CDT) SARSCOV2 NOT DETECTED (Referen ce Range for this test is Not Detected ) [facility] THERMOFISHER FAST DX 12/28/2020 8:26 AM CDT [facility] Comment:This test was perfor med by a RT-PCR method. Other Non-Phlebotomy Collection / Unknown 12/27/2020 7:35 AM CDT 12/27/2020 11:19 AM CDT Narrative [facility] - 12/28/2020 8:26 AM CDT Authorized Fact Sheets about this test for providers and patients are available at: https://www.fda.gov/medical-devices/wxwpdvtvo-azhjefbtjl-nmlzwni-devices/emergen -us e-authorizations us Tyree Serna MD MICROBIOLOGY - GENERAL ORDERAB LES Final Result [facility] [address] [place] [address], documented in this encounter Visit Diagnoses Not on filedocumented in this encounter Additional Health Concerns Infection Onset Date Last Indicated Resolved Time COVID - 19 12/27/2020 02/28/2021 03/06/2021 12:1 6 AM CAT AND DOG BATHER COVID - 19 02/21/2021 05/30/2021 05/31/2021 11:1 0 AM CAT AND DOG BATHER COVID - 19 Confirmed 05/30/2021 05/30/2021 022 12:18 AM CDT COVID - 19 08/29/2021 02/13/2022 02/23/2022 12:1 6 AM CAT AND DOG BATHER COVID - 19 04/03/2022 06/19/2022 06/29/2022 12:1 6 AM CDT documented as of this encounter Care Teams Maori Physiotherapist Relationship Specialty Start Date End Date Jocy Welch MD PCP - General Family Medicine 10/19/15 02/20/21 Tyree Serna MD [address] [place] [address] [address] [place] [address] PCP - General Family Medicine 02/21/21 02/22/24 Ilir Nunez MD [address] [place] [address] PCP - General Family Medicine 02/23/24 Jocy Welch MD Family Medicine 02/21/21 04/04/21 Nadya Harrell, HAND BOOKED FOLDER AND STITCHER, LEAD QUALITY CONTROL TECHNICIAN [address], [facility] [address] [place] [address] Certified Nurse Practitioner 02/23/24 documented as of this encounter
--- OUTSIDE RECORDS SUMMARY | 2024-11-17 07:57 | XMS_ITS | Encounter Summary ---
Author Organization [facility] Address [address] [place] [address] Phone Care Team Providers Care Patient Care Manager Name Role Phone Jocy Welch MD Primary Care Provider Tyree Serna MD Primary Care Provider [phone] Jocy Welch MD Unavailable [phone] Ilir Nunez MD Primary Care Provider [phone] Nadya Harrell APRN, SECURITY SYSTEMS ADMINISTRATOR Unavailable [phone] Encounter Details Date Type Department Care Team (Late st Contact Info) Description 01/03/2021 Lab Requisition [facility] Laboratory Services [address] [place] [phone] Tyree Serna MD [address] [place] [address] [address] [place] [address] Encounter for screening for COVID-19 [...] Associated Diagnosis Comments SARS-COV-2 BY MOLECULAR Routine 01/03/2021 8:20 AM CDT Encounter for screening for COVID-19 documented in this encounter Results * SARS-COV-2 BY MOLECULAR (01/03/2021 8:20 AM CDT) SARSCOV2 NOT DETECTED (Referen ce Range for this test is Not Detected ) [facility] THERMOF[facility]ER FAST DX 01/04/2021 5:10 AM CDT [facility] Comment:This test was perfor med by a RT-PCR method. Other Non-Phlebotomy Collection / Unknown 01/03/2021 8:20 AM CDT 01/03/2021 10:37 AM CDT Narrative [facility] - 01/04/2021 5:10 AM CDT Authorized Fact Sheets about this test for providers and patients are available at: https://www.fda.gov/medical-devices/hfolkdlol-pllrrywelq-zjkkynm-devices/emergen -us e-authorizations us Tyree Serna MD MICROBIOLOGY - GENERAL ORDERAB LES Final Result [facility] [address] [place] [id number], documented in this encounter Visit Diagnoses Diagnosis Encounter for screening for COVID-19 documented in this encounter Additional Health Concerns Infection Onset Date Last Indicated Resolved Time COVID - 19 12/27/2020 02/28/2021 03/06/2021 12:1 6 AM HAND BUNCH MAKER COVID - 19 02/21/2021 05/30/2021 05/31/2021 11:1 0 AM HAND BUNCH MAKER COVID - 19 Confirmed 05/30/2021 05/30/2021 022 12:18 AM CDT COVID - 19 08/29/2021 02/13/2022 02/23/2022 12:1 6 AM HAND BUNCH MAKER COVID - 19 04/03/2022 06/19/2022 06/29/2022 12:1 6 AM CDT documented as of this encounter Care Teams Patient Care Manager Relationship Specialty Start Date End Date Jocy Welch MD PCP - General Family Medicine 10/19/15 02/20/21 Tyree Serna MD [address] [facility] [address] [place] [address] PCP - General Family Medicine 02/21/21 02/22/24 Ilir Nunez MD [address] [place] [address] PCP - General Family Medicine 02/23/24 Jocy Welch MD Family Medicine 02/21/21 04/04/21 Nadya Harrell, PUBLIC SERVICES ASSISTANT, SECURITY SYSTEMS ADMINISTRATOR [address], [facility] [address] [place] [address] Certified Nurse Practitioner 02/23/24 documented as of this encounter
--- OUTSIDE RECORDS SUMMARY | 2024-11-17 07:57 | XMS_ITS | Encounter Summary ---
Author Organization [facility] Address [address] [place] [address] Phone Care Team Providers Care Automotive Internet Sales Manager Name Role Phone Jocy Welch MD Primary Care Provider Tyree Serna MD Primary Care Provider [phone] Jocy Welch MD Unavailable [phone] Ilir Nunez MD Primary Care Provider [phone] Nadya Harrell APRN, IMPORT/EXPORT SPECIALIST Unavailable [phone] Encounter Details Date Type Department Care Team (Late st Contact Info) Description 01/17/2021 Lab Requisition [facility] Laboratory Services [address] [place] [phone] Tyree Serna MD [address] [place] [address] [address] [place] [address] Social History Tobacco Use Types [...] Associated Diagnosis Comments SARS-COV-2 BY MOLECULAR Routine 01/17/2021 8:37 AM CDT documented in this encounter Results * SARS-COV-2 BY MOLECULAR (01/17/2021 8:37 AM CDT) SARSCOV2 NOT DETECTED (Referen ce Range for this test is Not Detected ) [facility] THERMOFISHER FAST DX 01/18/2021 12:33 PM CDT [facility] Comment:This test was perfor med by a RT-PCR method. Other Non-Phlebotomy Collection / Unknown 01/17/2021 8:37 AM CDT 01/17/2021 10:45 AM CDT Narrative [facility] - 01/18/2021 12:33 PM CDT Authorized Fact Sheets about this test for providers and patients are available at: https://www.fda.gov/medical-devices/qzxsozilh-blqtvljkkh-edrkqai-devices/emergen cy-us e-authorizations us Tyree Serna MD MICROBIOLOGY - GENERAL ORDERAB LES Final Result [facility] [address] [place] [address], documented in this encounter Visit Diagnoses Not on filedocumented in this encounter Additional Health Concerns Infection Onset Date Last Indicated Resolved Time COVID - 19 12/27/2020 02/28/2021 03/06/2021 12:1 6 AM ASSOCIATE SCHOOL PSYCHOLOGIST COVID - 19 02/21/2021 05/30/2021 05/31/2021 11:1 0 AM ASSOCIATE SCHOOL PSYCHOLOGIST COVID - 19 Confirmed 05/30/2021 05/30/2021 022 12:18 AM CDT COVID - 19 08/29/2021 02/13/2022 02/23/2022 12:1 6 AM ASSOCIATE SCHOOL PSYCHOLOGIST COVID - 19 04/03/2022 06/19/2022 06/29/2022 12:1 6 AM CDT documented as of this encounter Care Teams Automotive Internet Sales Manager Relationship Specialty Start Date End Date Jocy Welch MD PCP - General Family Medicine 10/19/15 02/20/21 Tyree Serna MD [address] [place] [address] [address] [place] [address] PCP - General Family Medicine 02/21/21 02/22/24 Ilir Nunez MD [facility] [address] [facility] [place] [address] PCP - General Family Medicine 02/23/24 Jocy Welch MD Family Medicine 02/21/21 04/04/21 Nadya Harrell, ORNAMENT STITCHER, IMPORT/EXPORT SPECIALIST [address], [facility] [address] [place] [address] Certified Nurse Practitioner 02/23/24 documented as of this encounter
--- OUTSIDE RECORDS SUMMARY | 2024-11-17 07:57 | XMS_ITS | Encounter Summary ---
Author Organization [facility] Address [address] [place] [address] Phone Care Team Providers Care Senior Physical Therapist Name Role Phone Tyree Serna MD Primary Care Provider [phone] Ilir Nunez MD Primary Care Provider [phone] Nadya Harrell APRN, BIOMETRICS HEAD Unavailable [phone] Encounter Details Date Type Department Care Team (Late st Contact Info) Description 06/12/2022 Lab Requisition [facility] Laboratory Services [address] [place] [address] Tyree Serna MD [address] [place] [address] [address] [place], [place] [id number] Encounter for screening for COVID-19 Social History [...] Associated Diagnosis Comments SARS-COV-2 BY MOLECULAR Routine 06/12/2022 8:02 AM TERMINAL OPERATOR Encounter for screening for COVID-19 documented in this encounter Results * SARS-COV-2 BY MOLECULAR (06/12/2022 8:02 AM TERMINAL OPERATOR) SARSCOV2 NOT DETECTED (Referen ce Range for this test is Not Detected ) [facility] THERMOFISHER FAST DX 06/12/2022 7:37 PM TERMINAL OPERATOR [facility] Comment:This test was perfor med by a RT-PCR method. Other No Phlebotomy Charged / Unknown 06/12/2022 8:02 AM TERMINAL OPERATOR 06/12/2022 10:06 AM TERMINAL OPERATOR Narrative [facility] - 06/12/2022 7:37 PM TERMINAL OPERATOR Authorized Fact Sheets about this test for providers and patients are available at: https://www.fda.gov/medical-devices/csjkkogwp-jseligozco-ubnocdl-devices/emergen -us e-authorizations Result [facility] us Tyree Serna MD MICROBIOLOGY - GENERAL ORDERAB LES Final Result [facility] [address] [place] [address], documented in this encounter Visit Diagnoses Diagnosis Encounter for screening for COVID-19 documented in this encounter Additional Health Concerns Infection Onset Date Last Indicated Resolved Time COVID - 19 04/03/2022 06/19/2022 06/29/2022 12:1 6 AM CDT documented as of this encounter Care Teams Senior Physical Therapist Relationship Specialty Start Date End Date Tyree Serna MD [address] [place] [address] [facility] [address] [place] [address] PCP - General Family Medicine 02/21/21 02/22/24 Ilir Nunez MD [address] [place] [address] PCP - General Family Medicine 02/23/24 Nadya Harrell, JOB LITHOGRAPHER, BIOMETRICS HEAD [address], [facility] [address] [place] [address] Certified Nurse Practitioner 02/23/24 documented as of this encounter
--- OUTSIDE RECORDS SUMMARY | 2024-11-17 07:57 | XMS_ITS | Encounter Summary ---
Author Organization [facility] Address [address] [place] [address] Phone Care Team Providers Care Certified Maintenance Welder Name Role Phone Tyree Serna MD Primary Care Provider [phone] Ilir Nunez MD Primary Care Provider [phone] Nadya Harrell APRN, LOCKS TENDER Unavailable [phone] Encounter Details Date Type Department Care Team (Late st Contact Info) Description 06/05/2022 Lab Requisition [facility] Laboratory Services [address] [place] [address] Tyree Serna MD [address] [place] [address] [address] [place], [place] [id number] Encounter for screening for COVID-19 Social History [...] Associated Diagnosis Comments SARS-COV-2 BY MOLECULAR Routine 06/05/2022 8:21 AM GUEST HOUSE MANAGER Encounter for screening for COVID-19 documented in this encounter Results * SARS-COV-2 BY MOLECULAR (06/05/2022 8:21 AM GUEST HOUSE MANAGER) SARSCOV2 NOT DETECTED (Referen ce Range for this test is Not Detected ) [facility] THERMOFISHER FAST DX 06/06/2022 8:01 AM GUEST HOUSE MANAGER [facility] Comment:This test was perfor med by a RT-PCR method. Other Non-Phlebotomy Collection / Unknown 06/05/2022 8:21 AM GUEST HOUSE MANAGER 06/05/2022 10:25 AM GUEST HOUSE MANAGER Narrative [facility] - 06/06/2022 8:01 AM GUEST HOUSE MANAGER Authorized Fact Sheets about this test for providers and patients are available at: https://www.fda.gov/medical-devices/xyvqvwbdr-xkgyqqwtqo-jciufhl-devices/emergen -us e-authorizations Result [facility] us Tyree Serna MD MICROBIOLOGY - GENERAL ORDERAB LES Final Result [facility] [address] [place] [address], documented in this encounter Visit Diagnoses Diagnosis Encounter for screening for COVID-19 documented in this encounter Additional Health Concerns Infection Onset Date Last Indicated Resolved Time COVID - 19 04/03/2022 06/19/2022 06/29/2022 12:1 6 AM CDT documented as of this encounter Care Teams Certified Maintenance Welder Relationship Specialty Start Date End Date Tyree Serna MD [address] [place] [address] [facility] [address] [place] [address] PCP - General Family Medicine 02/21/21 02/22/24 Ilir Nunez MD [address] [place] [address] PCP - General Family Medicine 02/23/24 Nadya Harrell, EDITORIAL CARTOONIST, LOCKS TENDER [address], [facility] [address] [place] [address] Certified Nurse Practitioner 02/23/24 documented as of this encounter
--- OUTSIDE RECORDS SUMMARY | 2024-11-17 07:58 | XMS_ITS | Encounter Summary ---
Author Organization [facility] Address [address] [place] [address] Phone Care Team Providers Care Legger Press Operator Name Role Phone Tyree Serna MD Primary Care Provider [phone] Ilir Nunez MD Primary Care Provider [phone] Nadya Harrell APRN, BOX GLUER Unavailable [phone] Encounter Details Date Type Department Care Team (Late st Contact Info) Description 05/15/2022 Lab Requisition [facility] Laboratory Services 1 [place] [address] Tyree Serna MD [address] [place] [address] [address] [place], [place] [id number] Encounter for screening for COVID-19 Social History [...] Associated Diagnosis Comments SARS-COV-2 BY MOLECULAR Routine 05/15/2022 8:20 AM GEOLOGY INSTRUCTOR Encounter for screening for COVID-19 documented in this encounter Results * SARS-COV-2 BY MOLECULAR (05/15/2022 8:20 AM GEOLOGY INSTRUCTOR) SARSCOV2 NOT DETECTED (Referen ce Range for this test is Not Detected ) [facility] THERMOFISHER FAST DX 05/15/2022 11:05 PM GEOLOGY INSTRUCTOR [facility] Comment:This test was perfor med by a RT-PCR method. Other Non-Phlebotomy Collection / Unknown 05/15/2022 8:20 AM GEOLOGY INSTRUCTOR 05/15/2022 10:17 AM GEOLOGY INSTRUCTOR Narrative [facility] - 05/15/2022 11:05 PM GEOLOGY INSTRUCTOR Authorized Fact Sheets about this test for providers and patients are available at: https://www.fda.gov/medical-devices/fpeglcmna-tepotouwzn-rqmczwq-devices/emergen -us e-authorizations Result [facility] us Tyree Serna MD MICROBIOLOGY - GENERAL ORDERAB LES Final Result [facility] [address] [place] [address], documented in this encounter Visit Diagnoses Diagnosis Encounter for screening for COVID-19 documented in this encounter Additional Health Concerns Infection Onset Date Last Indicated Resolved Time COVID - 19 04/03/2022 06/19/2022 06/29/2022 12:1 6 AM CDT documented as of this encounter Care Teams Legger Press Operator Relationship Specialty Start Date End Date Tyree Serna MD [address] [place] [address] [facility] [address] [place] [address] PCP - General Family Medicine 02/21/21 02/22/24 Ilir Nunez MD [address] [place] [address] PCP - General Family Medicine 02/23/24 Nadya Harrell, ELECTRICIAN RECTIFIER MAINTENANCE, BOX GLUER [address], [facility] [address] [place] [address] Certified Nurse Practitioner 02/23/24 documented as of this encounter
--- OUTSIDE RECORDS SUMMARY | 2024-11-17 07:58 | XMS_ITS | Encounter Summary ---
Author Organization [facility] Address [address] [place] [address] Phone Care Team Providers Care Computer Consultant Name Role Phone Tyree Serna MD Primary Care Provider [phone] Ilir Nunez MD Primary Care Provider [phone] Nadya Harrell APRN, STATISTICAL MODELER Unavailable [phone] Encounter Details Date Type Department Care Team (Late st Contact Info) Description 04/11/2021 Lab Requisition [facility] Laboratory Services [address] [place] [address] Tyree Serna MD [address] [place] [address] [address] [place], [place] [phone] Encounter for screening for COVID-19 Social History [...] Associated Diagnosis Comments SARS-COV-2 BY MOLECULAR Routine 04/11/2021 8:36 AM MISSILE INSPECTOR Encounter for screening for COVID-19 documented in this encounter Results * SARS-COV-2 BY MOLECULAR (04/11/2021 8:36 AM MISSILE INSPECTOR) SARSCOV2 NOT DETECTED (Referen ce Range for this test is Not Detected ) [facility] THERMOFISHER FAST DX 04/13/2021 7:20 PM MISSILE INSPECTOR [facility] Comment:This test was perfor med by a RT-PCR method. Other Non-Phlebotomy Collection / Unknown 04/11/2021 8:36 AM MISSILE INSPECTOR 04/11/2021 12:23 PM MISSILE INSPECTOR Narrative [facility] - 04/13/2021 7:20 PM MISSILE INSPECTOR Authorized Fact Sheets about this test for providers and patients are available at: https://www.fda.gov/medical-devices/nvyvqgpxr-xuviwautpe-mdljzwe-devices/emergen -us e-authorizations us Tyree Serna MD MICROBIOLOGY - GENERAL ORDERAB LES Final Result [facility] [address] [place] [address], documented in this encounter Visit Diagnoses Diagnosis Encounter for screening for COVID-19 documented in this encounter Additional Health Concerns Infection Onset Date Last Indicated Resolved Time COVID - 19 02/21/2021 05/30/2021 05/31/2021 11:1 0 AM MISSILE INSPECTOR COVID - 19 Confirmed 05/30/2021 05/30/2021 022 12:18 AM CDT COVID - 19 08/29/2021 02/13/2022 02/23/2022 12:1 6 AM MISSILE INSPECTOR COVID - 19 04/03/2022 06/19/2022 06/29/2022 12:1 6 AM CDT documented as of this encounter Care Teams Computer Consultant Relationship Specialty Start Date End Date Tyree Serna MD [address] [place] [address] [address] [place] [address] PCP - General Family Medicine 02/21/21 02/22/24 [place] [address] PCP - General Family Medicine 02/23/24 Nadya Harrell, ALYX, STATISTICAL MODELER [address] , [facility] [address] [place] [address] Certified Nurse Practitioner 02/23/24 documented as of this encounter
--- OUTSIDE RECORDS SUMMARY | 2024-11-17 07:58 | XMS_ITS | Encounter Summary ---
Author Organization [facility] Address [address] [place] [address] Phone Care Team Providers Care Cafe Attendant Name Role Phone Tyree Serna MD Primary Care Provider [phone] Ilir Nunez MD Primary Care Provider [phone] Nadya Harrell APRN, MINING SPECULATOR Unavailable Encounter Details Date Type Department Care Team (Late st Contact Info) Description 04/24/2022 Lab Requisition [facility] Laboratory Services [address] [place] [id number] Tyree Serna MD [address] [place] [address] [address] [place], [place] [id number] Encounter for screening for COVID-19 Social History [...] Associated Diagnosis Comments SARS-COV-2 BY MOLECULAR Routine 04/24/2022 8:08 AM WRAPPER SIZER Encounter for screening for COVID-19 documented in this encounter Results * SARS-COV-2 BY MOLECULAR (04/24/2022 8:08 AM WRAPPER SIZER) SARSCOV2 NOT DETECTED (Referen ce Range for this test is Not Detected ) [facility] THERMOFISHER FAST DX 04/25/2022 10:58 AM WRAPPER SIZER [facility] Comment:This test was perfor med by a RT-PCR method. Other Non-Phlebotomy Collection / Unknown 04/24/2022 8:08 AM WRAPPER SIZER 04/24/2022 11:56 AM WRAPPER SIZER Narrative [facility] - 04/25/2022 10:58 AM WRAPPER SIZER Authorized Fact Sheets about this test for providers and patients are available at: https://www.fda.gov/medical-devices/jjuzthwhg-xnqenkdibm-eglguee-devices/emergen -us e-authorizations Result [facility] us Tyree Serna MD MICROBIOLOGY - GENERAL ORDERAB LES Final Result [facility] [address] [place] [address], documented in this encounter Visit Diagnoses Diagnosis Encounter for screening for COVID-19 documented in this encounter Additional Health Concerns Infection Onset Date Last Indicated Resolved Time COVID - 19 04/03/2022 06/19/2022 06/29/2022 12:1 6 AM CDT documented as of this encounter Care Teams Cafe Attendant Relationship Specialty Start Date End Date Tyree Serna MD [address] [place] [address] [facility] [address] [place] [address] PCP - General Family Medicine 02/21/21 02/22/24 Ilir Nunez MD [address] [place] [address] PCP - General Family Medicine 02/23/24 Nadya Harrell, JIG MILL OPERATOR, MINING SPECULATOR [address], [facility] [address] [place] [address] Certified Nurse Practitioner 02/23/24 documented as of this encounter
--- OUTSIDE RECORDS SUMMARY | 2024-11-17 07:58 | XMS_ITS | Encounter Summary ---
Author Organization [facility] Address [address] [place] [address] Phone Care Team Providers Care Hematologist Oncologist Name Role Phone Tyree Serna MD Primary Care Provider Ilir Nunez MD Primary Care Provider [phone] Nadya Harrell APRN, HEEL DIPPER Unavailable [phone] Encounter Details Date Type Department Care Team (Late st Contact Info) Description 06/19/2022 Lab Requisition [facility] Laboratory Services [address] [place] [address] Tyree Serna MD [address] [place] [address] [address] [place], [place] [id number] Encounter for screening for COVID-19 Social History [...] Associated Diagnosis Comments SARS-COV-2 BY MOLECULAR Routine 06/19/2022 8:10 AM CDT Encounter for screening for COVID-19 documented in this encounter Results * SARS-COV-2 BY MOLECULAR (06/19/2022 8:10 AM CDT) SARSCOV2 NOT DETECTED (Referen ce Range for this test is Not Detected ) [facility] THERMOFISHER FAST DX 06/19/2022 5:01 PM CDT [facility] Comment:This test was perfor med by a RT-PCR method. Other COVID 19 Home Health/ [facility] Collection / Unknown 06/19/2022 8:10 AM CDT 06/19/2022 9:29 AM CDT Narrative [facility] - 06/19/2022 5:01 PM CDT Authorized Fact Sheets about this test for providers and patients are available at: https://www.fda.gov/medical-devices/qstmemtuo-pweuhealba-aeleygd-devices/emergen -us e-authorizations us Tyree Serna MD MICROBIOLOGY - GENERAL ORDERAB LES Final Result [facility] [address] [place] [address], documented in this encounter Visit Diagnoses Diagnosis Encounter for screening for COVID-19 documented in this encounter Additional Health Concerns Infection Onset Date Last Indicated Resolved Time COVID - 19 04/03/2022 06/19/2022 06/29/2022 12:1 6 AM CDT documented as of this encounter Care Teams Hematologist Oncologist Relationship Specialty Start Date End Date Tyree Serna MD [address] [place] [address] [address] [place] [address] PCP - General Family Medicine 02/21/21 02/22/24 Ilir Nunez MD [address] [place] [address] PCP - General Family Medicine 02/23/24 Nadya Harrell, EQUITY ANALYST, HEEL DIPPER [address], [facility] [address] [place] [address] Certified Nurse Practitioner 02/23/24 documented as of this encounter
--- OUTSIDE RECORDS SUMMARY | 2024-11-17 07:58 | XMS_ITS | Encounter Summary ---
Author Organization [facility] Address [address] [place] [address] Phone Care Team Providers Care Press Worker Helper Name Role Phone Tyree Serna MD Primary Care Provider [phone] Ilir Nunez MD Primary Care Provider [phone] Nadya Harrell APRN, MEDICAL LABORATORY ASSISTANT Unavailable [phone] Encounter Details Date Type Department Care Team (Late st Contact Info) Description 05/08/2022 Lab Requisition [facility] Laboratory Services 1 [place] [phone] Tyree Serna MD [address] [place] [address] [address] [place], [place] [phone] Encounter for screening for COVID-19 Social History [...] Associated Diagnosis Comments SARS-COV-2 BY MOLECULAR Routine 05/08/2022 8:13 AM SENIOR MANAGER [employer]ERS [employer] ACQUISITIONS Encounter for screening for COVID-19 documented in this encounter Results * SARS-COV-2 BY MOLECULAR (05/08/2022 8:13 AM SENIOR MANAGER [employer]QU[employer]ITIONS) SARSCOV2 NOT DETECTED (Referen ce Range for this test is Not Detected ) [facility] THERMOFISHER FAST DX 05/08/2022 9:47 PM SENIOR MANAGER [employer] ACQUISITIONS [facility] Comment:This test was perfor med by a RT-PCR method. Other Non-Phlebotomy Collection / Unknown 05/08/2022 8:13 AM SENIOR MANAGER [employer]ITIONS 05/08/2022 10:06 AM SENIOR MANAGER [employer]ITIONS Narrative [facility] - 05/08/2022 9:47 PM SENIOR MANAGER [employer] ACQU[employer]ITIONS Authorized Fact Sheets about this test for providers and patients are available at: https://www.fda.gov/medical-devices/cfyhcajtd-upbukhulpk-jlqdssw-devices/emergen -us e-authorizations Result [facility] us Tyree Serna MD MICROBIOLOGY - GENERAL ORDERAB LES Final Result [facility] [address] [place] [address], documented in this encounter Visit Diagnoses Diagnosis Encounter for screening for COVID-19 documented in this encounter Additional Health Concerns Infection Onset Date Last Indicated Resolved Time COVID - 19 04/03/2022 06/19/2022 06/29/2022 12:1 6 AM CDT documented as of this encounter Care Teams Press Worker Helper Relationship Specialty Start Date End Date Tyree Serna MD [address] [place] [address] [facility] [address] [place] [address] PCP - General Family Medicine 02/21/21 02/22/24 Ilir Nunez MD [address] [place] [address] PCP - General Family Medicine 02/23/24 Nadya Harrell, LIME SPREADER, MEDICAL LABORATORY ASSISTANT [address], [facility] [address] [place] [address] Certified Nurse Practitioner 02/23/24 documented as of this encounter
--- OUTSIDE RECORDS SUMMARY | 2024-11-17 07:58 | XMS_ITS | Encounter Summary ---
Author Organization [facility] Address [address] [place] [address] Phone Care Team Providers Care Crepe Machine Operator Name Role Phone Ilir Nunez MD Primary Care Provider [phone] Naday Harrell BENZENE OPERATOR, BOX ORDER PERSON Unavailable [phone] Encounter Details Date Type Department Care Team (Late st Contact Info) Description 10/20/2024 Lab Requisition [facility] Laboratory Services [address] [place] [address] Nadya Morris MD [address] [place] [id number] Bipolar disorder, unspecified (HCC); Personality disorder, unspecified; Anemia, unspecified; Hypothyroidism, unspecified; Anxiety disorder, unspecified; Schizophrenia, unspecified Social History Tobacco Use Types Packs/Day [...] Diagnosis Comments CBC WITH AUTO DIFFERENTIAL Routine 10/20/2024 6:54 AM CDT Bipolar disorder, unspecified (HCC) Personality disorder, unspecified Anemia, unspecified Hypothyroidism, unspecified Anxiety disorder, unspecified Schizophrenia, unspecified VALPROIC ACID (DEPAKENE) Routine 10/20/2024 6:54 AM CDT Bipolar disorder, unspecified (HCC) Personality disorder, unspecified Anemia, unspecified Hypothyroidism, unspecified Anxiety disorder, unspecified Schizophrenia, unspecified LITHIUM Routine 10/20/2024 6:54 AM CDT Bipolar disorder, unspecified (HCC) Personality disorder, unspecified Anemia, unspecified Hypothyroidism, unspecified Anxiety disorder, unspecified Schizophrenia, unspecified LIPID PANEL Routine 10/20/2024 6:54 AM CDT Bipolar disorder, unspecified (HCC) Personality disorder, unspecified Anemia, unspecified Hypothyroidism, unspecified Anxiety disorder, unspecified Schizophrenia, unspecified CMP (COMPREHENSIVE METABOLIC PANEL) Routine 10/20/2024 6:54 AM CDT Bipolar disorder, unspecified (HCC) Personality disorder, unspecified Anemia, unspecified Hypothyroidism, unspecified Anxiety disorder, unspecified Schizophrenia, unspecified COMPLETE BLOOD COUNT (CBC) WITH DIFF Routine 10/20/2024 6:54 AM CDT Bipolar disorder, unspecified (HCC) Personality disorder, unspecified Anemia, unspecified Hypothyroidism, unspecified Anxiety disorder, unspecified Schizophrenia, unspecified documented in this encounter Results * (ABNORMAL) CBC WITH AUTO DIFFERENTIAL (10/20/2024 6:54 AM CDT) WBC 7.41 4.00 - 12.00 10(3)/[facility] 10/20/2024 7:52 AM CDT [facility] RBC 4.21(L) 4.40 - 5.80 10(6)/[facility] 10/20/2024 7:52 AM CDT [facility] HEMOGLOBIN (HGB) 12.9(L) 13.0 - 16.5 g/dL 10/20/2024 7:52 AM CDT [facility] HEMATOCRIT (HCT) 40.0 38.0 - 50.0 % 10/20/2024 7:52 AM CDT [facility] MCV 95.0 82.0 - 96.0 fL 10/20/2024 7:52 AM CDT [facility] MCH 30.6 26.0 - 32.0 pg 10/20/2024 7:52 AM CDT [facility] MCHC 32.3 31.0 - 36.0 g/dL 10/20/2024 7:52 AM CDT [facility] PLATELET COUNT 206 140 - 440 10(3)/mcL 10/20/2024 7:52 AM CDT [facility] RDW 13.1 11.8 - 15.5 % 10/20/2024 7:52 AM CDT [facility] MPV 11.0 8.0 - 12.6 fL 10/20/2024 7:52 AM CDT [facility] NEUTROPHILS 42.9 40.0 - 68.0 % 10/20/2024 7:52 AM CDT [facility] LYMPHOCYTES 45.6 19.0 - 49.0 % 10/20/2024 7:52 AM CDT [facility] MONOCYTES 8.4 3.0 - 13.0 % 10/20/2024 7:52 AM CDT [facility] EOSINOPHILS 2.2 0.0 - 8.0 % 10/20/2024 7:52 AM CDT [facility] BASOPHILS 0.4 0.0 - 1.0 % 10/20/2024 7:52 AM CDT [facility] IMMATURE GRANULOCYTE 0.5(H) 0.0 - 0.4 % 10/20/2024 7:52 AM CDT [facility] Comment:Immature Granulocyte s includes Metamyelocytes, Myelocytes, and Promyelocytes. ABSOLUTE NEUTROPHILS 3.18 1.40 - 5.30 10(3)/mcL 10/20/2024 7:52 AM CDT [facility] ABSOLUTE LYMPHOCYTES 3.38(H) 0.90 - 3.30 10(3)/mcL 10/20/2024 7:52 AM CDT [facility] ABSOLUTE MONOCYTES 0.62 0.10 - 0.90 10(3)/mcL 10/20/2024 7:52 AM CDT [facility] ABSOLUTE EOSINOPHIL 0.16 0.00 - 0.50 10(3)/mcL 10/20/2024 7:52 AM CDT [facility] ABSOLUTE BASOPHILS 0.03 0.00 - 0.10 10(3)/mcL 10/20/2024 7:52 AM CDT [facility] ABSOLUTE IMMATURE GRANULOCYTE 0.04(H) 0.00 - 0.03 10 (3) mcL. 10/20/2024 7:52 AM CDT [facility] NRBC PER 100 WBC 0 10/21/19 7:52 AM CDT [facility] Blood Venipuncture / Unknown 10/20/2024 6:54 AM CDT 10/20/2024 7:41 AM CDT us Nadya Morris MD HEMATOLOGY ORDERABLES Final Re sult Performing Organization Address City/[facility] Co de Phone Number [facility] [place] [address] * (ABNORMAL) LITHIUM (10/20/2024 6:54 AM CDT) [facility] LITHIUM 0.4(L) 0.8 - 1.2 mmol/L 10/20/2024 10:55 AM CDT [facility] Blood Venipuncture / Unknown 10/20/2024 6:54 AM CDT 10/20/2024 7:41 AM CDT Nadya Morris MD CHEMISTRY ORDERABLES Final Res ult Performing Organization Address City/[facility] Co de Phone Number [facility] [address] [place] [address] * VALPROIC ACID (DEPAKENE) (10/20/2024 6:54 AM CDT) Pathologist [facility] VALPROIC ACID TOTAL 92 50 - 100 mcg/mL 10/20/2024 11:02 AM CDT [facility] Blood Venipuncture / Unknown 10/20/2024 6:54 AM CDT 10/20/2024 7:41 AM CDT us Nadya Morris MD CHEMISTRY ORDERABLES Final Res ult Performing Organization Address City/[facility]/ZIP Co de Phone Number [facility] [address] [place] [address] * (ABNORMAL) LIPID PANEL (10/20/2024 6:54 AM CDT) CHOLESTEROL 167 <200 mg/dL 10/20/2024 11:02 AM CDT [facility] TRIGLYCERIDES 190(H) <150 mg/dL 10/20/2024 11:02 AM CDT [facility] HDL CHOLESTEROL 36(L) >40 mg/dL 11:02 AM CDT [facility] LDL 93 <130 mg/dL 10/20/2024 11:02 AM CDT [facility] VLDL 38 10 - 50 mg/dL 10/20/2024 11:02 AM CDT [facility] CHOL/HDL RATIO 4.6(H) 0.0 - 4.4 10/20/2024 11:02 AM CDT [facility] NON-HDL CHOLESTEROL 131(H) <130 mg/dL 10/20/2024 11:02 AM CDT [facility] Blood Venipuncture / Unknown 10/20/2024 6:54 AM CDT 10/20/2024 7:41 AM CDT us Nadya Morris MD CHEMISTRY ORDERABLES Final Res ult [facility] [address] [place] [address] * (ABNORMAL) CMP (COMPREHENSIVE METABOLIC PANEL) (10/20/2024 6:54 AM CDT) SODIUM 144 136 - 145 mmol/L 10/20/2024 11:02 AM CDT [facility] POTASSIUM 4.1 3.5 - 5.1 mmol/L 10/20/2024 11:02 AM T [facility] CHLORIDE 111(H) 98 - 107 mmol/L 10/20/2024 11:02 AM CDT [facility] CO2, VENOUS 25 22 - 30 mmol/L 10/20/2024 11:02 AM T [facility] ANION GAP 12.1 <18.0 mmol/L 10/20/2024 11:02 AM T [facility] GLUCOSE 71 70 - 99 mg/dL 10/20/2024 11:02 AM T [facility] BUN 13 9 - 21 mg/dL 10/20/2024 11:02 AM T [facility] CREATININE, BLOOD 1.17 0.70 - 1.30 mg/dL 10/20/2024 11:02 AM T [facility] BUN/CREATININE RATIO 11(L) 12 - 20 ratio 10/20/2024 11:02 AM T [facility] TOTAL PROTEIN 7.4 6.0 - 8.0 g/dL 10/20/2024 11:02 AM T [facility] ALBUMIN 4.4 3.5 - 5.0 g/dL 10/20/2024 11:02 AM T [facility] A/G RATIO 1.5 1.0 - 2.2 10/20/2024 11:02 AM CDT [facility] CALCIUM 9.4 8.7 - 10.5 mg/dL 10/20/2024 11:02 AM T [facility] T BILI 0.3 0.2 - 1.2 mg/dL 10/20/2024 11:02 AM T [facility] SGOT (AST) 29 <43 U/L 10/20/2024 11:02 AM T [facility] SGPT (ALT) 25 <56 U/L 10/20/2024 11:02 AM CDT [facility] ALKALINE PHOSPHATASE 35(L) 40 - 150 U/L 10/20/2024 11:02 AM CDT [facility] GFR, ESTIMATED >60 >=60 10/20/2024 11:02 AM CDT [facility] Comment: Creatinine Clearance is the preferred criteria for selecting drug dose adjustments in renally impaired patients. The GFR is provided as additional pertinent clinical information. GFR is reported in mL/min/1.73 sq m. Calculation based on the Chronic Kidney Disease Epidemiology Collaboration (CKD- EPI) equation refit without adjustment for race. GFR, EST. >60 >=60 025 11:02 AM CDT [facility] GFR, EST. NONAFRICAN >60 >=60 10/20/2024 11:02 AM CDT [facility] Blood Venipuncture / Unknown 10/20/2024 6:54 AM CDT 10/20/2024 7:41 AM CDT us Nadya Morris MD CHEMISTRY ORDERABLES Final Res ult [facility] [place] [address] documented in this encounter Visit Diagnoses Diagnosis Bipolar disorder, unspecified (HCC) Bipolar disorder, unspecified Personality disorder, unspecified Anemia, unspecified Hypothyroidism, unspecified Anxiety disorder, unspecified Schizophrenia, unspecified documented in this encounter Care Teams Crepe Machine Operator Relationship Specialty Start Date End Date Ilir Nunez MD [address] [place] [address] PCP - General Family Medicine 02/23/24 Nadya Harrell, BENZENE OPERATOR, BOX ORDER PERSON [address], [address] [place] [address] Certified Nurse Practitioner 02/23/24 documented as of this encounter
--- OUTSIDE RECORDS SUMMARY | 2024-11-17 07:58 | XMS_ITS | Encounter Summary ---
Author Organization [facility] Address [address] [place] [address] Phone Care Team Providers Care Infection Control Practitioner Name Role Phone Tyree Serna MD Primary Care Provider [phone] Ilir Nunez MD Primary Care Provider [phone] Nadya Harrell APRN, PODIATRIC FOOT AND ANKLE SPECIALIST Unavailable Encounter Details Date Type Department Care Team (Late st Contact Info) Description 04/18/[address] [facility] Laboratory Services [address] [place] [address] Tyree Serna MD [address] [place] [address] [address] [place], [place] [id number] Encounter for screening for COVID-19 Social History [...] Associated Diagnosis Comments SARS-COV-2 BY MOLECULAR Routine 04/18/2021 8:06 AM LEG BREAKER Encounter for screening for COVID-19 documented in this encounter Results * SARS-COV-2 BY MOLECULAR (04/18/2021 8:06 AM LEG BREAKER) SARSCOV2 NOT DETECTED (Referen ce Range for this test is Not Detected ) [facility] THERMOFISHER FAST DX 04/20/2021 6:12 AM LEG BREAKER [facility] Comment:This test was perfor med by a RT-PCR method. Other No Phlebotomy Charged / Unknown 04/18/2021 8:06 AM LEG BREAKER 04/18/2021 10:26 AM LEG BREAKER Narrative [facility] - 04/20/2021 6:12 AM LEG BREAKER Authorized Fact Sheets about this test for providers and patients are available at: https://www.fda.gov/medical-devices/ioyfrqzeq-wlxqvjuwxf-gqihvib-devices/emergen -us e-authorizations us Tyree Serna MD MICROBIOLOGY - GENERAL ORDERAB LES Final Result [facility] [address] [place] [address], documented in this encounter Visit Diagnoses Diagnosis Encounter for screening for COVID-19 documented in this encounter Additional Health Concerns Infection Onset Date Last Indicated Resolved Time COVID - 19 02/21/2021 05/30/2021 05/31/2021 11:1 0 AM LEG BREAKER COVID - 19 Confirmed 05/30/2021 05/30/2021 022 12:18 AM CDT COVID - 19 08/29/2021 02/13/2022 02/23/2022 12:1 6 AM LEG BREAKER COVID - 19 04/03/2022 06/19/2022 06/29/2022 12:1 6 AM CDT documented as of this encounter Care Teams Infection Control Practitioner Relationship Specialty Start Date End Date Tyree Serna MD [address] [place] [address] [address] [place] [address] PCP - General Family Medicine 02/21/21 02/22/24 [place] [address] PCP - General Family Medicine 02/23/24 Nadya Harrell ALYX, PODIATRIC FOOT AND ANKLE SPECIALIST [address] [facility] [address] [place] [address] Certified Nurse Practitioner 02/23/24 documented as of this encounter
--- OUTSIDE RECORDS SUMMARY | 2024-11-17 07:58 | XMS_ITS | Encounter Summary ---
Author Organization [facility] Address [address] [place] [address] Phone Care Team Providers Care Open Soaper Tender Name Role Phone Tyree Serna MD Primary Care Provider [phone] Jocy Welch MD Unavailable [phone] Ilir Nunez MD Primary Care Provider Nadya Harrell APRN, CAR STEREO INSTALLER Unavailable [phone] Encounter Details Date Type Department Care Team (Late st Contact Info) Description 03/07/2021 Lab Requisition [facility] Laboratory Services 1 [place] [address] Tyree Serna MD [address] [place] [address] [address] [place] [address] Social History Tobacco Use Types Packs/Day Years Used Date Smoking Tobacco: Never Assessed Sex and Gender Information Value Date Recorded Sex Assigned at Not on file Legal Sex Male 3:47 PM CDT Gender Identity Not on file Sexual Orientation Not on file documented as of this encounter Plan of Treatment Not on file documented as of this encounter Procedures Procedure Name Priority Date/Time Associated Diagnosis Comments SARS-COV-2 BY MOLECULAR Routine 03/07/2021 8:05 AM PRINTING MACHINE OPERATOR TAPE RULES documented in this encounter Results * SARS-COV-2 BY MOLECULAR (03/07/2021 8:05 AM PRINTING MACHINE OPERATOR TAPE RULES) SARSCOV2 NOT DETECTED (Referen ce Range for this test is Not Detected ) [facility] THERMOFISHER FAST DX 03/08/2021 8:48 AM PRINTING MACHINE OPERATOR TAPE RULES [facility] Comment:This test was perfor med by a RT-PCR method. Other Non-Phlebotomy Collection / Unknown 03/07/2021 8:05 AM PRINTING MACHINE OPERATOR TAPE RULES 03/07/2021 10:38 AM PRINTING MACHINE OPERATOR TAPE RULES Narrative [facility] - 03/08/2021 8:48 AM PRINTING MACHINE OPERATOR TAPE RULES Authorized Fact Sheets about this test for providers and patients are available at: https://www.fda.gov/medical-devices/ylykurykj-dwfmftjktf-vjmibio-devices/emergen -us e-authorizations us Tyree Serna MD MICROBIOLOGY - GENERAL ORDERAB LES Final Result [facility] [address] [place] [address], documented in this encounter Visit Diagnoses Not on filedocumented in this encounter Additional Health Concerns Infection Onset Date Last Indicated Resolved Time COVID - 19 02/21/2021 05/30/2021 05/31/2021 11:1 0 AM PRINTING MACHINE OPERATOR TAPE RULES COVID - 19 Confirmed 05/30/2021 05/30/2021 022 12:18 AM CDT COVID - 19 08/29/2021 02/13/2022 02/23/2022 12:1 6 AM PRINTING MACHINE OPERATOR TAPE RULES COVID - 19 04/03/2022 06/19/2022 06/29/2022 12:1 6 AM CDT documented as of this encounter Care Teams Open Soaper Tender Relationship Specialty Start Date End Date Tyree Serna MD [address] [facility] [address] [place] [address] PCP - General Family Medicine 02/21/21 02/22/24 [place] [address] PCP - General Family Medicine 02/23/24 Jocy Welch MD [address] [place] [address] [address] [place] [address] Family Medicine 02/21/21 04/04/21 Nadya Harrell, MILK DRIVER, CAR STEREO INSTALLER [address], [facility] [address] [place] [address] Certified Nurse Practitioner 02/23/24 documented as of this encounter
--- OUTSIDE RECORDS SUMMARY | 2024-11-17 07:58 | XMS_ITS | Encounter Summary ---
Author Organization [facility] Address [address] [place] [address] Phone Care Team Providers Care Globe Mounter Name Role Phone Tyree Serna MD Primary Care Provider [phone] Ilir Nunez MD Primary Care Provider [phone] Nadya Harrell APRN, COMMERCIAL FISHER Unavailable Encounter Details Date Type Department Care Team (Late st Contact Info) Description 05/02/2022 Lab Requisition [facility] Laboratory Services 1 [place] [id number] Tyree Serna MD [address] [place] [address] [address] [place], [place] [id number] Encounter for screening for COVID-19 Social History [...] Associated Diagnosis Comments SARS-COV-2 BY MOLECULAR Routine 05/02/2022 8:26 AM REPAIRER CYLINDER HEADS Encounter for screening for COVID-19 documented in this encounter Results * SARS-COV-2 BY MOLECULAR (05/02/2022 8:26 AM REPAIRER CYLINDER HEADS) SARSCOV2 NOT DETECTED (Referen ce Range for this test is Not Detected ) [facility] THERMOFISHER FAST DX 05/02/2022 5:12 PM REPAIRER CYLINDER HEADS [facility] Comment:This test was perfor med by a RT-PCR method. Other Non-Phlebotomy Collection / Unknown 05/02/2022 8:26 AM REPAIRER CYLINDER HEADS 05/02/2022 10:04 AM REPAIRER CYLINDER HEADS Narrative [facility] - 05/02/2022 5:12 PM REPAIRER CYLINDER HEADS Authorized Fact Sheets about this test for providers and patients are available at: https://www.fda.gov/medical-devices/avivcneqp-ofjnqzagzk-tmhosdx-devices/emergen -us e-authorizations Result [facility] us Tyree Serna MD MICROBIOLOGY - GENERAL ORDERAB LES Final Result [facility] [address] [place] [address], documented in this encounter Visit Diagnoses Diagnosis Encounter for screening for COVID-19 documented in this encounter Additional Health Concerns Infection Onset Date Last Indicated Resolved Time COVID - 19 04/03/2022 06/19/2022 06/29/2022 12:1 6 AM CDT documented as of this encounter Care Teams Globe Mounter Relationship Specialty Start Date End Date Tyree Serna MD [address] [place] [address] [facility] [address] [place] [address] PCP - General Family Medicine 02/21/21 02/22/24 Ilir Nunez MD [address] [place] [address] PCP - General Family Medicine 02/23/24 Nadya Harrell, PSYCHOLOGISTS, COMMERCIAL FISHER [address], [facility] [address] [place] [address] Certified Nurse Practitioner 02/23/24 documented as of this encounter
--- OUTSIDE RECORDS SUMMARY | 2024-11-17 07:58 | XMS_ITS | Encounter Summary ---
Author Organization [facility] Address [address] [place] [address] Phone Care Team Providers Care Senior Clinical Sas Programmer Name Role Phone Tyree Serna MD Primary Care Provider Ilir Nunez MD Primary Care Provider [phone] Nadya Harrell APRN, TOP PRECIPITATOR OPERATOR Unavailable [phone] Encounter Details Date Type Department Care Team (Late st Contact Info) Description 11/07/2021 Lab Requisition [facility] Laboratory Services [address] [place] [address] Tyree Serna MD [address] [place] [address] [address] [place], [place] [id number] Encounter for screening for COVID-19 Social History [...] Associated Diagnosis Comments SARS-COV-2 BY MOLECULAR Routine 11/07/2021 8:42 AM CDT Encounter for screening for COVID-19 documented in this encounter Results * SARS-COV-2 BY MOLECULAR (11/07/2021 8:42 AM CDT) SARSCOV2 NOT DETECTED (Referen ce Range for this test is Not Detected ) [facility] THERMOFISHER FAST DX 11/08/2021 1:01 PM CDT [facility] Comment:This test was perfor med by a RT-PCR method. Other Non-Phlebotomy Collection / Unknown 11/07/2021 8:42 AM CDT 11/07/2021 1:06 PM CDT Narrative [facility] - 11/08/2021 1:01 PM CDT Authorized Fact Sheets about this test for providers and patients are available at: https://www.fda.gov/medical-devices/jmlprpulb-cpgidtmazc-coiyywg-devices/emergen -us e-authorizations us Tyree Serna MD MICROBIOLOGY - GENERAL ORDERAB LES Final Result [facility] [address] [place] [address], documented in this encounter Visit Diagnoses Diagnosis Encounter for screening for COVID-19 documented in this encounter Additional Health Concerns Infection Onset Date Last Indicated Resolved Time COVID - 19 08/29/2021 02/13/2022 02/23/2022 12:1 6 AM MANAGER OF MEDICAL COVID - 19 04/03/2022 06/19/2022 06/29/2022 12:1 6 AM CDT documented as of this encounter Care Teams Senior Clinical Sas Programmer Relationship Specialty Start Date End Date Tyree Serna MD [address] [place] [address] [address] [place] [address] PCP - General Family Medicine 02/21/21 02/22/24 Ilir Nunez MD [address] [place] [address] PCP - General Family Medicine 02/23/24 Nadya Harrell, MOTORCOACH DRIVER, TOP PRECIPITATOR OPERATOR [address], [address] [address] Certified Nurse Practitioner 02/23/24 documented as of this encounter
--- OUTSIDE RECORDS SUMMARY | 2024-11-17 07:58 | XMS_ITS | Encounter Summary ---
Author Organization [facility] Address [address] [place] [address] Phone Care Team Providers Care Dresser Tender Name Role Phone Tyree Serna MD Primary Care Provider [phone] Ilir Nunez MD Primary Care Provider [phone] Nadya Harrell APRN, SENIOR TAX ACCOUNTANT Unavailable Encounter Details Date Type Department Care Team (Late st Contact Info) Description 09/05/2021 Lab Requisition [facility] Laboratory Services [address] [place] [address] Tyree Serna MD [address] [place] [address] [place] [address] Encounter for screening for COVID-19 [...] Associated Diagnosis Comments SARS-COV-2 BY MOLECULAR Routine 09/05/2021 8:51 AM CDT Encounter for screening for COVID-19 documented in this encounter Results * SARS-COV-2 BY MOLECULAR (09/05/2021 8:51 AM CDT) SARSCOV2 NOT DETECTED (Referen ce Range for this test is Not Detected ) [facility] THERMOFISHER FAST DX 09/06/2021 8:04 AM CDT [facility] Comment:This test was perfor med by a RT-PCR method. Other No Phlebotomy Charged / Unknown 09/05/2021 8:51 AM CDT 09/05/2021 12:21 PM CDT Narrative [facility] - 09/06/2021 8:04 AM CDT Authorized Fact Sheets about this test for providers and patients are available at: https://www.fda.gov/medical-devices/oywbzqotq-cxxjrgnmej-ntimruh-devices/emergen -us e-authorizations us Tyree Serna MD MICROBIOLOGY - GENERAL ORDERAB LES Final Result [facility] [address] [place] [address], documented in this encounter Visit Diagnoses Diagnosis Encounter for screening for COVID-19 documented in this encounter Additional Health Concerns Infection Onset Date Last Indicated Resolved Time COVID - 19 08/29/2021 02/13/2022 02/23/2022 12:1 6 AM SURGICAL DEVICE SALES REPRESENTATIVE COVID - 19 04/03/2022 06/19/2022 06/29/2022 12:1 6 AM CDT documented as of this encounter Care Teams Dresser Tender Relationship Specialty Start Date End Date Tyree Serna MD [address] [place] [address] [address] [place] [address] PCP - General Family Medicine 02/21/21 02/22/24 Ilir Nunez MD [address] [place] [address] PCP - General Family Medicine 02/23/24 Nadya aHrrell, STEEL TIER, SENIOR TAX ACCOUNTANT [address], [facility] [address] [place] [address] Certified Nurse Practitioner 02/23/24 documented as of this encounter
--- OUTSIDE RECORDS SUMMARY | 2024-11-17 07:58 | XMS_ITS | Encounter Summary ---
Author Organization [facility] Address [address] [place] [address] Phone Care Team Providers Care Lining Stitcher Name Role Phone Tyree Serna MD Primary Care Provider [phone] Ilir Nunez MD Primary Care Provider [phone] Nadya Harrell APRN, HYBRID TESTER Unavailable Encounter Details Date Type Department Care Team (Late st Contact Info) Description 01/02/2022 Lab Requisition [facility] Laboratory Services [address] [place] [address] Tyree Serna MD [address] [place] [address] [address] [place], [place] [id number] Encounter for screening for COVID-19 Social History [...] Associated Diagnosis Comments SARS-COV-2 BY MOLECULAR Routine 01/02/2022 8:24 AM CDT Encounter for screening for COVID-19 documented in this encounter Results * SARS-COV-2 BY MOLECULAR (01/02/2022 8:24 AM CDT) SARSCOV2 NOT DETECTED (Referen ce Range for this test is Not Detected ) [facility] THERMOFISHER FAST DX 01/03/2022 12:09 AM CDT [facility] Comment:This test was perfor med by a RT-PCR method. Other Non-Phlebotomy Collection / Unknown 01/02/2022 8:24 AM CDT 01/02/2022 12:00 PM CDT Narrative [facility] - 01/03/2022 12:09 AM CDT Authorized Fact Sheets about this test for providers and patients are available at: https://www.fda.gov/medical-devices/hdutshsir-znxmbcvnrm-wnogbjx-devices/emergen -us e-authorizations us Tyree Serna MD MICROBIOLOGY - GENERAL ORDERAB LES Final Result [facility] [address] [place] [address], documented in this encounter Visit Diagnoses Diagnosis Encounter for screening for COVID-19 documented in this encounter Additional Health Concerns Infection Onset Date Last Indicated Resolved Time COVID - 19 08/29/2021 02/13/2022 02/23/2022 12:1 6 AM CREDIT SPECIALIST COVID - 19 04/03/2022 06/19/2022 06/29/2022 12:1 6 AM CDT documented as of this encounter Care Teams Lining Stitcher Relationship Specialty Start Date End Date Tyree Serna MD [address] [place] [address] [address] [place] [address] PCP - General Family Medicine 02/21/21 02/22/24 Ilir Nunez MD [address] [place] [address] PCP - General Family Medicine 02/23/24 Nadya Harrell, BODY SPECIALIST, HYBRID TESTER [address], [address] [address] Certified Nurse Practitioner 02/23/24 documented as of this encounter
--- OUTSIDE RECORDS SUMMARY | 2024-11-17 07:58 | XMS_ITS | Encounter Summary ---
Author Organization [facility] Address [address] [place] [address] Phone Care Team Providers Care Tray Room Worker Name Role Phone Tyree Serna MD Primary Care Provider [phone] Ilir Nunez MD Primary Care Provider [phone] Nadya Harrell APRN, SILVICULTURIST Unavailable Encounter Details Date Type Department Care Team (Late st Contact Info) Description 09/19/2021 Lab Requisition [facility] Laboratory Services 1 [place] [address] Tyree Serna MD [address] [place] [address] [address] [place], [place] [id number] Encounter for screening for COVID-19 Social History [...] Associated Diagnosis Comments SARS-COV-2 BY MOLECULAR Routine 09/19/2021 8:24 AM CDT Encounter for screening for COVID-19 documented in this encounter Results * SARS-COV-2 BY MOLECULAR (09/19/2021 8:24 AM CDT) SARSCOV2 NOT DETECTED (Referen ce Range for this test is Not Detected ) [facility] THERMOFISHER FAST DX 09/19/2021 7:27 PM CDT [facility] Comment:This test was perfor med by a RT-PCR method. Other No Phlebotomy Charged / Unknown 09/19/2021 8:24 AM CDT 09/19/2021 9:41 AM CDT Narrative [facility] - 09/19/2021 7:27 PM CDT Authorized Fact Sheets about this test for providers and patients are available at: https://www.fda.gov/medical-devices/wldnworwd-bkxzbbdyqi-bynihol-devices/emergen -us e-authorizations us Tyree Serna MD MICROBIOLOGY - GENERAL ORDERAB LES Final Result [facility] [address] [place] [address], documented in this encounter Visit Diagnoses Diagnosis Encounter for screening for COVID-19 documented in this encounter Additional Health Concerns Infection Onset Date Last Indicated Resolved Time COVID - 19 08/29/2021 02/13/2022 02/23/2022 12:1 6 AM FOILING MACHINE OPERATOR COVID - 19 04/03/2022 06/19/2022 06/29/2022 12:1 6 AM CDT documented as of this encounter Care Teams Tray Room Worker Relationship Specialty Start Date End Date Tyree Serna MD [address] [place] [address] [address] [place] [address] PCP - General Family Medicine 02/21/21 02/22/24 Ilir Nunez MD [address] [place] [address] PCP - General Family Medicine 02/23/24 Nadya Harrell, CHAMFERING MACHINE OPERATOR, SILVICULTURIST [address], [facility] [address] [place] [address] Certified Nurse Practitioner 02/23/24 documented as of this encounter
--- OUTSIDE RECORDS SUMMARY | 2024-11-17 07:58 | XMS_ITS | Encounter Summary ---
Author Organization [facility] Address [address] [place] [address] Phone Care Team Providers Care Lead Injection Mold Technician Name Role Phone Josie Templeton MD Primary Care Provider [phone] Nadya Harrell NP Primary Care Provider [phone] Encounter Details Date Type Department Care Team (Late st Contact Info) Description 10/23/2022 Orders Only [facility] [address] [place] [address] Scanning, Provider Social History Tobacco Use Types Packs/Day Years Used Date Smoking Tobacco: Never Smokeless Tobacco: Never PHQ-2 Answer Date Recorded PHQ-2 Total Score (If total score is 3 or more points, staff should administer the PHQ-9) 0 01/29/2022 Sex and Gender Information Value Date Recorded Sex Assigned at Not on file Legal Sex Male 9:29 AM SOFTWARE REVERSE ENGINEER Gender Identity Not on file Sexual Orientation Not on file documented as of this encounter Plan of Treatment Not on file documented as of this encounter Procedures Procedure Name Priority Date/Time Associated Diagnosis Comments SCAN - LABS 10/23/2022 documented in this encounter Results * SCAN - LABS (10/23/2022) us Provider Scanning Final Result documented in this encounter Visit Diagnoses Not on filedocumented in this encounter Care Teams Lead Injection Mold Technician Relationship Specialty Start Date End Date Josie Templeton MD PCP - General Family Practice 01/29/22 11/26/23 Nadya Harrell NP [address] [place] [address] PCP - General Family Medicine 11/27/23 documented as of this encounter
--- OUTSIDE RECORDS SUMMARY | 2024-11-17 07:58 | XMS_ITS | Encounter Summary ---
Author Organization [facility] Address [address] [place] [address] Phone Care Team Providers Care Pmo Manager Name Role Phone Tyree Serna MD Primary Care Provider [phone] Ilir Nunez MD Primary Care Provider [phone] Nadya Harrell APRN, BEAM DYER Unavailable Encounter Details Date Type Department Care Team (Late st Contact Info) Description 10/10/2021 Lab Requisition [facility] Laboratory Services 1 [place] [address] Tyree Serna MD [address] [place] [address] [place] [address] Encounter for screening for COVID-19 [...] Exposure Response Date Recorded In the last 10 days, have yo u been in contact with someone who was confirmed or suspected to have Coronavirus/COVID-19? No / Unsure 09/25/2021 2:43 PM CDT documented as of this encounter Plan of Treatment Not on file documented as of this encounter Procedures Procedure Name Priority Date/Time Associated Diagnosis Comments SARS-COV-2 BY MOLECULAR Routine 10/10/2021 8:04 AM CDT Encounter for screening for COVID-19 documented in this encounter Results * SARS-COV-2 BY MOLECULAR (10/10/2021 8:04 AM CDT) SARSCOV2 NOT DETECTED (Referen ce Range for this test is Not Detected ) [facility] THERMOFISHER FAST DX 10/11/2021 11:34 AM CDT [facility] Comment:This test was perfor med by a RT-PCR method. Other No Phlebotomy Charged / Unknown 10/10/2021 8:04 AM CDT 10/10/2021 11:12 AM CDT Narrative [facility] - 10/11/2021 11:34 AM CDT Authorized Fact Sheets about this test for providers and patients are available at: https://www.fda.gov/medical-devices/gwvhljgix-crkjtudhcl-rixfzrt-devices/emergen -us e-authorizations us Tyree Serna MD MICROBIOLOGY - GENERAL ORDERAB LES Final Result [facility] [address] [place] [address], documented in this encounter Visit Diagnoses Diagnosis Encounter for screening for COVID-19 documented in this encounter Additional Health Concerns Infection Onset Date Last Indicated Resolved Time COVID - 19 08/29/2021 02/13/2022 02/23/2022 12:1 6 AM FOOTWEAR SALES REPRESENTATIVE COVID - 19 04/03/2022 06/19/2022 06/29/2022 12:1 6 AM CDT documented as of this encounter Care Teams Pmo Manager Relationship Specialty Start Date End Date Tyree Serna MD [address] [facility] [address] [place] [address] PCP - General Family Medicine 02/21/21 02/22/24 [place] [address] PCP - General Family Medicine 02/23/24 Nadya Harrell, DARKLIGHT INSPECTOR, BEAM DYER [address], [address] [address] Certified Nurse Practitioner 02/23/24 documented as of this encounter
--- OUTSIDE RECORDS SUMMARY | 2024-11-17 07:58 | XMS_ITS | Encounter Summary ---
Author Organization [facility] Address [address] [place] [address] Phone Care Team Providers Care Peanut Sorter Name Role Phone Tyree Serna MD Primary Care Provider [phone] Ilir Nunez MD Primary Care Provider [phone] Nadya Harrell APRN, CONCRETE BUCKET UNLOADER Unavailable [phone] Encounter Details Date Type Department Care Team (Latest Contact Info) Description 02/11/2024 Lab Requisition [facility] Laboratory Services 1 [place] [address] Nadya Harrell, EPIC TRAINER, CONCRETE BUCKET UNLOADER [address] , [facility] [address] [place] [address] Congenital hypothyroidism with diffuse goiter; Anxiety disorder, [...] as of this encounter Plan of Treatment Scheduled Orders Name Type Priority Associated Diagnoses Orde r Schedule CMP (COMPREHENSIVE METABOLIC PANEL) Lab Routine Congenital hypothyroidism with diffuse goiter Anxiety disorder, unspecified Pervasive developmental disorder, unspecified Mild intellectual disabilities Personality disorder, unspecified (HCC) Bipolar disorder, unspecified (HCC) Schizophrenia, unspecified (HCC) Anemia, unspecified Ordered: 02/11/2024 LIPID PANEL Lab Routine Congenital hypothyroidism with diffuse goiter Anxiety disorder, unspecified Pervasive developmental disorder, unspecified Mild intellectual disabilities Personality disorder, unspecified (HCC) Bipolar disorder, unspecified (HCC) Schizophrenia, unspecified (HCC) Anemia, unspecified Ordered: 02/11/2024 VALPROIC ACID (DEPAKENE) Lab Routine Congenital hypothyroidism with diffuse goiter Anxiety disorder, unspecified Pervasive developmental disorder, unspecified Mild intellectual disabilities Personality disorder, unspecified (HCC) Bipolar disorder, unspecified (HCC) Schizophrenia, unspecified (HCC) Anemia, unspecified Ordered: 02/11/2024 COMPLETE BLOOD COUNT (CBC) WITH DIFF Lab Routine Congenital hypothyroidism with diffuse goiter Anxiety disorder, unspecified Pervasive developmental disorder, unspecified Mild intellectual disabilities Personality disorder, unspecified (HCC) Bipolar disorder, unspecified (HCC) Schizophrenia, unspecified (HCC) Anemia, unspecified Ordered: 02/11/2024 LITHIUM Lab Routine Congenital hypothyroidism with diffuse goiter Anxiety disorder, unspecified Pervasive developmental disorder, unspecified Mild intellectual disabilities Personality disorder, unspecified (HCC) Bipolar disorder, unspecified (HCC) Schizophrenia, unspecified (HCC) Anemia, unspecified Ordered: 02/11/2024 (BUN) BLOOD UREA NITROGEN Lab Routine Congenital hypothyroidism with diffuse goiter Anxiety disorder, unspecified Pervasive developmental disorder, unspecified Mild intellectual disabilities Personality disorder, unspecified (HCC) Bipolar disorder, unspecified (HCC) Schizophrenia, unspecified (HCC) Anemia, unspecified Ordered: 02/11/2024 THYROXINE (T4) TOTAL Lab Routine Congenital hypothyroidism with diffuse goiter Anxiety disorder, unspecified Pervasive developmental disorder, unspecified Mild intellectual disabilities Personality disorder, unspecified (HCC) Bipolar disorder, unspecified (HCC) Schizophrenia, unspecified (HCC) Anemia, unspecified Ordered: 02/11/2024 THYROID STIMULATING HORMONE (TSH) Lab Routine Congenital hypothyroidism with diffuse goiter Anxiety disorder, unspecified Pervasive developmental disorder, unspecified Mild intellectual disabilities Personality disorder, unspecified (HCC) Bipolar disorder, unspecified (HCC) Schizophrenia, unspecified (HCC) Anemia, unspecified Ordered: 02/11/2024 documented as of this encounter Visit Diagnoses Diagnosis Congenital hypothyroidism with diffuse goiter Congenital hypothyroidism Anxiety disorder, unspecified Pervasive developmental disorder, unspecified Mild intellectual disabilities Personality disorder, unspecified Bipolar disorder, unspecified (HCC) Bipolar disorder, unspecified Schizophrenia, unspecified Anemia, unspecified documented in this encounter Care Teams Peanut Sorter Relationship Specialty Start Date End Date Tyree Serna MD [address] [place] [address] [address] [place] [address] PCP - General Family Medicine 02/21/21 02/22/24 Ilir Nunez MD [address] [place] [address] PCP - General Family Medicine 02/23/24 Nadya Harrell, EPIC TRAINER, CONCRETE BUCKET UNLOADER [address], [facility] [address] [place] [address] Certified Nurse Practitioner 02/23/24 documented as of this encounter
--- OUTSIDE RECORDS SUMMARY | 2024-11-17 07:58 | XMS_ITS | Encounter Summary ---
Author Organization [facility] Address [address] [place] [address] Phone Care Team Providers Care Roustabout Crew Leader Name Role Phone Josie Templeton MD Primary Care Provider [phone] Nadya Harrell NP Primary Care Provider [phone] Encounter Details Date Type Department Care Team (Late st Contact Info) Description 10/28/2022 Orders Only [facility] [address] [place] [address] Scanning, Provider Social History Tobacco Use Types Packs/Day Years Used Date Smoking Tobacco: Never Smokeless Tobacco: Never PHQ-2 Answer Date Recorded PHQ-2 Total Score (If total score is 3 or more points, staff should administer the PHQ-9) 0 01/29/2022 Sex and Gender Information Value Date Recorded Sex Assigned at Not on file Legal Sex Male 9:29 AM ENVIRONMENTAL COMMUNICATIONS SPECIALIST Gender Identity Not on file Sexual Orientation Not on file documented as of this encounter Plan of Treatment Not on file documented as of this encounter Procedures Procedure Name Priority Date/Time Associated Diagnosis Comments SCAN - LABS 10/28/2022 documented in this encounter Results * SCAN - LABS (10/28/2022) us Provider Scanning Final Result documented in this encounter Visit Diagnoses Not on filedocumented in this encounter Care Teams Roustabout Crew Leader Relationship Specialty Start Date End Date Josie Templeton MD PCP - General Family Practice 01/29/22 11/26/23 Nadya Harrell NP [address] [place] [address] PCP - General Family Medicine 11/27/23 documented as of this encounter
--- OUTSIDE RECORDS SUMMARY | 2024-11-17 07:58 | XMS_ITS | Encounter Summary ---
Author Organization [facility] Address [address] [place] [address] Phone Care Team Providers Care Lead Mobile Developer Name Role Phone Tyree Serna MD Primary Care Provider [phone] Ilir Nunez MD Primary Care Provider Nadya Harrell APRN, PRESSURE CONTROLLER Unavailable Encounter Details Date Type Department Care Team (Late st Contact Info) Description 05/30/2021 Lab Requisition [facility] Laboratory Services 1 [place] [address] Tyree Serna MD [address] [place] [address] [address], [place] [id number] Encounter for screening for COVID-19 Social History [...] Associated Diagnosis Comments SARS-COV-2 BY MOLECULAR Routine 05/30/2021 8:08 AM VARNISH DIPPER Encounter for screening for COVID-19 documented in this encounter Results * (ABNORMAL) SARS-COV-2 BY MOLECULAR (05/30/2021 8:08 AM VARNISH DIPPER) SARSCOV2 DETECTED( A) (Referenc e Range for this test is Not Detected) [facility] THERMOFISHER FAST DX 05/31/2021 11:10 AM VARNISH DIPPER [facility] Comment:This test was perfor med by a RT-PCR method. Other Non-Phlebotomy Collection / Unknown 05/30/2021 8:08 AM VARNISH DIPPER 05/30/2021 10:45 AM VARNISH DIPPER Narrative [facility] - 05/31/2021 11:10 AM VARNISH DIPPER Authorized Fact Sheets about this test for providers and patients are available at: https://www.fda.gov/medical-devices/mlcgiwoxm-himdrvropk-edsvmwu-devices/emergen -us e-authorizations us Tyree Serna MD MICROBIOLOGY - GENERAL ORDERAB LES Final Result [facility] [address] [place] [address], documented in this encounter Visit Diagnoses Diagnosis Encounter for screening for COVID-19 documented in this encounter Additional Health Concerns Infection Onset Date Last Indicated Resolved Time COVID - 19 02/21/2021 05/30/2021 05/31/2021 11:1 0 AM VARNISH DIPPER COVID - 19 Confirmed 05/30/2021 05/30/2021 022 12:18 AM CDT COVID - 19 08/29/2021 02/13/2022 02/23/2022 12:1 6 AM VARNISH DIPPER COVID - 19 04/03/2022 06/19/2022 06/29/2022 12:1 6 AM CDT documented as of this encounter Care Teams Lead Mobile Developer Relationship Specialty Start Date End Date Tyree Serna MD [address] [place] [address] [address] [place] [address] PCP - General Family Medicine 02/21/21 02/22/24 [place] [address] PCP - General Family Medicine 02/23/24 Nadya Harrell, SENIOR MILITARY ANALYST, PRESSURE CONTROLLER [address], [facility] [address] [place] [address] Certified Nurse Practitioner 02/23/24 documented as of this encounter
--- OUTSIDE RECORDS SUMMARY | 2024-11-17 07:58 | XMS_ITS | Encounter Summary ---
Author Organization [facility] Address [address] [place] [address] Phone Care Team Providers Care Advertising Sales Assistant Name Role Phone Tyree Serna MD Primary Care Provider [phone] Ilir Nunez MD Primary Care Provider [phone] Nadya Harrell APRN, FURNACE LINER Unavailable Encounter Details Date Type Department Care Team (Late st Contact Info) Description 11/14/2021 Lab Requisition [facility] Laboratory Services [address] [place] [address] Tyree Serna MD [address] [place] [address] [address] [place], [place] [id number] Encounter for screening for COVID-19 Social History [...] Associated Diagnosis Comments SARS-COV-2 BY MOLECULAR Routine 11/14/2021 7:47 AM CDT Encounter for screening for COVID-19 documented in this encounter Results * SARS-COV-2 BY MOLECULAR (11/14/2021 7:47 AM CDT) SARSCOV2 NOT DETECTED (Referen ce Range for this test is Not Detected ) [facility] THERMOFISHER FAST DX 11/15/2021 10:30 AM CDT [facility] Comment:This test was perfor med by a RT-PCR method. Other No Phlebotomy Charged / Unknown 11/14/2021 7:47 AM CDT 11/14/2021 11:04 AM CDT Narrative [facility] - 11/15/2021 10:30 AM CDT Authorized Fact Sheets about this test for providers and patients are available at: https://www.fda.gov/medical-devices/llskgugyo-uitdhuczyr-sbtupfd-devices/emergen -us e-authorizations us Tyree Serna MD MICROBIOLOGY - GENERAL ORDERAB LES Final Result [facility] [address] [place] [address], documented in this encounter Visit Diagnoses Diagnosis Encounter for screening for COVID-19 documented in this encounter Additional Health Concerns Infection Onset Date Last Indicated Resolved Time COVID - 19 08/29/2021 02/13/2022 02/23/2022 12:1 6 AM CLERICAL TRANSCRIBER COVID - 19 04/03/2022 06/19/2022 06/29/2022 12:1 6 AM CDT documented as of this encounter Care Teams Advertising Sales Assistant Relationship Specialty Start Date End Date Tyree Serna MD [address] [place] [address] [address] [place] [address] PCP - General Family Medicine 02/21/21 02/22/24 Ilir Nunez MD [address] [place] [address] PCP - General Family Medicine 02/23/24 Nadya Harrell, CLINICAL APPLICATION MANAGER, FURNACE LINER [address], [facility] [address] [place] [address] Certified Nurse Practitioner 02/23/24 documented as of this encounter
--- OUTSIDE RECORDS SUMMARY | 2024-11-17 07:58 | XMS_ITS | Encounter Summary ---
Author Organization [facility] Address [address] [place] [address] Phone Care Team Providers Care Relationship Advisor Name Role Phone Tyree Serna MD Primary Care Provider [phone] Jocy Welch MD Unavailable Ilir Nunez MD Primary Care Provider Nadya Harrell APRN, DEALER SALES REP Unavailable Encounter Details Date Type Department Care Team (Late st Contact Info) Description 02/28/2021 Lab Requisition [facility] Laboratory Services [address] [place] [address] Tyree Serna MD [address] [place] [address] [address] [place] [address] Social History Tobacco Use Types [...] Associated Diagnosis Comments SARS-COV-2 BY MOLECULAR Routine 02/28/2021 8:03 AM AUTO DAMAGE INSURANCE APPRAISER documented in this encounter Results * SARS-COV-2 BY MOLECULAR (02/28/2021 8:03 AM AUTO DAMAGE INSURANCE APPRAISER) SARSCOV2 NOT DETECTED (Referen ce Range for this test is Not Detected ) [facility] THERMOFISHER FAST DX 03/01/2021 10:21 AM AUTO DAMAGE INSURANCE APPRAISER [facility] Comment:This test was perfor med by a RT-PCR method. Other Non-Phlebotomy Collection / Unknown 02/28/2021 8:03 AM AUTO DAMAGE INSURANCE APPRAISER 02/28/2021 10:27 AM AUTO DAMAGE INSURANCE APPRAISER Narrative [facility] - 03/01/2021 10:21 AM AUTO DAMAGE INSURANCE APPRAISER Authorized Fact Sheets about this test for providers and patients are available at: https://www.fda.gov/medical-devices/itifgegpt-phgstbyakh-dhtmqqa-devices/emergen -us e-authorizations us Tyree Serna MD MICROBIOLOGY - GENERAL ORDERAB LES Final Result [facility] [address] [place] [address], documented in this encounter Visit Diagnoses Not on filedocumented in this encounter Additional Health Concerns Infection Onset Date Last Indicated Resolved Time COVID - 19 12/27/2020 02/28/2021 03/06/2021 12:1 6 AM AUTO DAMAGE INSURANCE APPRAISER COVID - 19 02/21/2021 05/30/2021 05/31/2021 11:1 0 AM AUTO DAMAGE INSURANCE APPRAISER COVID - 19 Confirmed 05/30/2021 05/30/2021 022 12:18 AM CDT COVID - 19 08/29/2021 02/13/2022 02/23/2022 12:1 6 AM AUTO DAMAGE INSURANCE APPRAISER COVID - 19 04/03/2022 06/19/2022 06/29/2022 12:1 6 AM CDT documented as of this encounter Care Teams Relationship Advisor Relationship Specialty Start Date End Date Tyree Serna MD [address] [facility] [place] [address] PCP - General Family Medicine 02/21/21 02/22/24 [place] [address] PCP - General Family Medicine 02/23/24 Jocy Welch MD [address] [place] [address] [facility] [address] [place] [address] Family Medicine 02/21/21 04/04/21 Nadya Harrell, PROGRAM MANAGER, DEALER SALES REP [address], [facility] [address] [place] [address] Certified Nurse Practitioner 02/23/24 documented as of this encounter
--- OUTSIDE RECORDS SUMMARY | 2024-11-17 07:58 | XMS_ITS | Encounter Summary ---
Author Organization [facility] Address [address] [place] [address] Phone Care Team Providers Care Foreign Exchange Clerk Name Role Phone Ilir Nunez MD Primary Care Provider [phone] Nadya Harrell APRN, CLINICAL LABORATORY AIDE Unavailable Encounter Details Date Type Department Care Team (Late st Contact Info) Description 07/21/2024 Lab Requisition [facility] [address] [place] [id number] Ilir Nunez MD [address] [place] [address] Bipolar disorder, unspecified (HCC); Personality disorder, unspecified; Anemia, unspecified; Vitamin D deficiency, unspecified; Hypothyroidism, unspecified; Pervasive developmental disorder, unspecified; Paranoid personality disorder (HCC); Anxiety disorder, unspecified; Encounter for screening for malignant neoplasm of prostate; Schizophrenia, unspecified Social History Tobacco Use Types [...] Procedure Name Priority Date/Time Associated Diagnosis Comments VITAMIN D, 25 HYDROXY TOTAL Routine 07/21/2024 7:03 AM CDT Bipolar disorder, unspecified (HCC) Personality disorder, unspecified Anemia, unspecified Vitamin D deficiency, unspecified Hypothyroidism, unspecified Pervasive developmental disorder, unspecified Paranoid personality disorder (HCC) Anxiety disorder, unspecified Encounter for screening for malignant neoplasm of prostate Schizophrenia, unspecified CBC WITH AUTO DIFFERENTIAL Routine 07/21/2024 7:03 AM CDT Bipolar disorder, unspecified (HCC) Personality disorder, unspecified Anemia, unspecified Vitamin D deficiency, unspecified Hypothyroidism, unspecified Pervasive developmental disorder, unspecified Paranoid personality disorder (HCC) Anxiety disorder, unspecified Encounter for screening for malignant neoplasm of prostate Schizophrenia, unspecified VALPROIC ACID (DEPAKENE) Routine 07/21/2024 7:03 AM CDT Bipolar disorder, unspecified (HCC) Personality disorder, unspecified Anemia, unspecified Vitamin D deficiency, unspecified Hypothyroidism, unspecified Pervasive developmental disorder, unspecified Paranoid personality disorder (HCC) Anxiety disorder, unspecified Encounter for screening for malignant neoplasm of prostate Schizophrenia, unspecified THYROID STIMULATING HORMONE (TSH) Routine 07/21/2024 7:03 AM CDT Bipolar disorder, unspecified (HCC) Personality disorder, unspecified Anemia, unspecified Vitamin D deficiency, unspecified Hypothyroidism, unspecified Pervasive developmental disorder, unspecified Paranoid personality disorder (HCC) Anxiety disorder, unspecified Encounter for screening for malignant neoplasm of prostate Schizophrenia, unspecified TRIIODOTHYRININE (T3) FREE Routine 07/21/2024 7:03 AM CDT Bipolar disorder, unspecified (HCC) Personality disorder, unspecified Anemia, unspecified Vitamin D deficiency, unspecified Hypothyroidism, unspecified Pervasive developmental disorder, unspecified Paranoid personality disorder (HCC) Anxiety disorder, unspecified Encounter for screening for malignant neoplasm of prostate Schizophrenia, unspecified PSA DIAGNOSTIC,TOTAL Routine 07/21/2024 7:03 AM CDT Bipolar disorder, unspecified (HCC) Personality disorder, unspecified Anemia, unspecified Vitamin D deficiency, unspecified Hypothyroidism, unspecified Pervasive developmental disorder, unspecified Paranoid personality disorder (HCC) Anxiety disorder, unspecified Encounter for screening for malignant neoplasm of prostate Schizophrenia, unspecified LITHIUM Routine 07/21/2024 7:03 AM CDT Bipolar disorder, unspecified (HCC) Personality disorder, unspecified Anemia, unspecified Vitamin D deficiency, unspecified Hypothyroidism, unspecified Pervasive developmental disorder, unspecified Paranoid personality disorder (HCC) Anxiety disorder, unspecified Encounter for screening for malignant neoplasm of prostate Schizophrenia, unspecified LIPID PANEL Routine 07/21/2024 7:03 AM CDT Bipolar disorder, unspecified (HCC) Personality disorder, unspecified Anemia, unspecified Vitamin D deficiency, unspecified Hypothyroidism, unspecified Pervasive developmental disorder, unspecified Paranoid personality disorder (HCC) Anxiety disorder, unspecified Encounter for screening for malignant neoplasm of prostate Schizophrenia, unspecified CMP (COMPREHENSIVE METABOLIC PANEL) Routine 07/21/2024 7:03 AM CDT Bipolar disorder, unspecified (HCC) Personality disorder, unspecified Anemia, unspecified Vitamin D deficiency, unspecified Hypothyroidism, unspecified Pervasive developmental disorder, unspecified Paranoid personality disorder (HCC) Anxiety disorder, unspecified Encounter for screening for malignant neoplasm of prostate Schizophrenia, unspecified COMPLETE BLOOD COUNT (CBC) WITH DIFF Routine 07/21/2024 7:03 AM CDT Bipolar disorder, unspecified (HCC) Personality disorder, unspecified Anemia, unspecified Vitamin D deficiency, unspecified Hypothyroidism, unspecified Pervasive developmental disorder, unspecified Paranoid personality disorder (HCC) Anxiety disorder, unspecified Encounter for screening for malignant neoplasm of prostate Schizophrenia, unspecified documented in this encounter Results * (ABNORMAL) CBC WITH AUTO DIFFERENTIAL (07/21/2024 7:03 AM CDT) Pathologist [facility] WBC 8.08 4.00 - 12.00 10(3)/mcL 07/21/2024 7:48 AM CDT [facility] RBC 4.07(L) 4.40 - 5.80 10(6)/mcL 07/21/2024 7:48 AM CDT [facility] HEMOGLOBIN (HGB) 12.6(L) 13.0 - 16.5 g/dL 07/21/2024 7:48 AM CDT [facility] HEMATOCRIT (HCT) 38.5 38.0 - 50.0 % 07/21/2024 7:48 AM CDT [facility] MCV 94.6 82.0 - 96.0 fL 07/21/2024 7:48 AM CDT [facility] MCH 31.0 26.0 - 32.0 pg 07/21/2024 7:48 AM CDT [facility] MCHC 32.7 31.0 - 36.0 g/dL 07/21/2024 7:48 AM CDT [facility] PLATELET COUNT 220 140 - 440 10(3)/mcL 07/21/2024 7:48 AM CDT [facility] RDW 13.1 11.8 - 15.5 % 07/21/2024 7:48 AM CDT [facility] MPV 11.0 8.0 - 12.6 fL 07/21/2024 7:48 AM CDT [facility] NEUTROPHILS 47.0 40.0 - 68.0 % 07/21/2024 7:48 AM CDT [facility] LYMPHOCYTES 41.5 19.0 - 49.0 % 07/21/2024 7:48 AM CDT [facility] MONOCYTES 8.8 3.0 - 13.0 % 07/21/2024 7:48 AM CDT [facility] EOSINOPHILS 2.2 0.0 - 8.0 % 07/21/2024 7:48 AM CDT [facility] BASOPHILS 0.5 0.0 - 1.0 % 07/21/2024 7:48 AM CDT [facility] ABSOLUTE NEUTROPHILS 3.80 1.40 - 5.30 10(3)/mcL 07/21/2024 7:48 AM CDT [facility] ABSOLUTE LYMPHOCYTES 3.35(H) 0.90 - 3.30 10(3)/mcL 07/21/2024 7:48 AM CDT [facility] ABSOLUTE MONOCYTES 0.71 0.10 - 0.90 10(3)/mcL 07/21/2024 7:48 AM CDT [facility] ABSOLUTE EOSINOPHIL 0.18 0.00 - 0.50 10(3)/mcL 07/21/2024 7:48 AM CDT [facility] ABSOLUTE BASOPHILS 0.04 0.00 - 0.10 10(3)/mcL 07/21/2024 7:48 AM CDT [facility] NRBC PER 100 WBC 0 07/22/19 7:48 AM CDT [facility] Blood Venipuncture / Unknown 07/21/2024 7:03 AM CDT 07/21/2024 7:43 AM CDT us Ilir Nunez MD HEMATOLOGY ORDERABLES Final Res ult Performing Organization Address City/[facility]/ZIP Co de Phone Number [facility] [address] [place] [address] * (ABNORMAL) LITHIUM (07/21/2024 7:03 AM CDT) LITHIUM 0.6(L) 0.8 - 1.2 mmol/L 07/21/2024 9:58 AM CDT [facility] Blood Venipuncture / Unknown 07/21/2024 7:03 AM CDT 07/21/2024 7:43 AM CDT us Ilir Nunez MD CHEMISTRY ORDERABLES Final Resu lt Performing Organization Address City/[facility]/ZIP Co de Phone Number [facility] [address] [place] [address] * VITAMIN D, 25 HYDROXY TOTAL (07/21/2024 7:03 AM CDT) VITAMIN D, 25 HYDROX 26.1 ng/mL 07/21/2024 10:44 AM CDT [facility] Blood Venipuncture / Unknown 07/21/2024 7:03 AM CDT 07/21/2024 7:43 AM CDT Narrative [facility] - 07/21/2024 10:44 AM CDT Published reference ranges for Vitamin D vary depending on time and place and method of testing, and on patient's age, sex, ethnicity and levels of other measured analytes such as parathormone, calcium and phosphorus. The result should be evaluated in conjunction with clinical findings and suspicions. [place] [employer] and Endocrine Clinical Practice Guidelines: Status Vitamin D levels (ng/mL) Deficient <=20 At risk of inadequacy 21-29 Sufficient 30-100 Centers of Disease Control and Prevention Guidelines: Status Vitamin D levels (ng/mL) Deficient <13 At risk of inadequacy 13-19 Sufficient 20-50 Possibly harmful >50 References: [place] [employer], 2010 Dietary reference intakes for calcium and vitamin D. [place]: The National Academies Press. Yung M, Jermaine N, Charlene BUTLER, et al., Evaluation, treatment, and prevention of Vitamin D deficiency: an Endocrinology Clinical Practice Guideline. JCEM 2011 96: 7 6745-9469. Satya A, Toni C, Miranda D, et al., Vitamin D Status: [place], 7399-4122, [facility] data brief, no. 59, [place]: National Center for Health Statistics. 2010. Ilir Nunez MD CHEMISTRY ORDERABLES Final Resu lt Performing Organization Address City/[facility]/ZIP Co de Phone Number [facility] [address] [place] [address] * VALPROIC ACID (DEPAKENE) (07/21/2024 7:03 AM CDT) VALPROIC ACID TOTAL 80 50 - 100 mcg/mL 07/21/2024 8:09 AM CDT [facility] Blood Venipuncture / Unknown 07/21/2024 7:03 AM CDT 07/21/2024 7:43 AM CDT Ilir Nunez MD CHEMISTRY ORDERABLES Final Resu lt [facility] [address] [place] [address] * THYROID STIMULATING HORMONE (TSH) (07/21/2024 7:03 AM CDT) TSH 2.023 0.300 - 5.000 mIU/L 07/21/2024 8:27 AM CDT [facility] Blood Venipuncture / Unknown 07/21/2024 7:03 AM CDT 07/21/2024 7:43 AM CDT us Ilir Nunez MD CHEMISTRY ORDERABLES Final Resu lt [facility] [address] [place] [address] * TRIIODOTHYRININE (T3) FREE (07/21/2024 7:03 AM CDT) Pathologist [facility] FREE T3 2.8 1.6 - 3.9 pg/mL 07/21/2024 3:30 PM CDT [facility] Ven[facility] / Unknown 07/21/2024 7:03 AM CDT 07/21/2024 7:43 AM CDT us Ilir Nunez MD CHEMISTRY ORDERABLES Final Resu lt [facility] [address] [place] [address], [place] * PSA DIAGNOSTIC,TOTAL (07/21/2024 7:03 AM CDT) PSA, TOTAL (PROSTATIC SPECIFIC ANTIGEN) 0.85 <4.00 ng/mL 07/21/2024 10:44 AM CDT [facility] Blood Venipuncture / Unknown 07/21/2024 7:03 AM CDT 07/21/2024 7:43 AM CDT Narrative [facility] - 07/21/2024 10:44 AM CDT PSA NOTE: The PSA value should be used in conjunction with information available from clinical evaluation and other diagnostic procedures. The ALINITY Total PSA assay is a Chemiluminescent Microparticle Immunoassay (CMIA) for the quantitative determination of total PSA (both free PSA and PSA complexed to [id number]) in human serum. Total PSA values obtained with different assay methods, including Chase PSA assays, cannot be used interchangeably. Ilir Nunez MD CHEMISTRY ORDERABLES Final Resu lt Performing Organization Address [facility]/ZIP Co de Phone Number [facility] [address] [place] [address] * (ABNORMAL) LIPID PANEL (07/21/2024 7:03 AM CDT) CHOLESTEROL 161 <200 mg/dL 07/21/2024 8:28 AM CDT [facility] TRIGLYCERIDES 196(H) <150 mg/dL 07/21/2024 8:28 AM CDT [facility] HDL CHOLESTEROL 34(L) >40 mg/dL 8:28 AM CDT [facility] LDL 88 <130 mg/dL 07/21/2024 8:28 AM CDT [facility] VLDL 39 10 - 50 mg/dL 07/21/2024 8:28 AM CDT [facility] CHOL/HDL RATIO 4.7(H) 0.0 - 4.4 07/21/2024 8:28 AM CDT [facility] NON-HDL CHOLESTEROL 127 <130 mg/dL 07/21/2024 8:28 AM CDT [facility] Blood Venipuncture / Unknown 07/21/2024 7:03 AM CDT 07/21/2024 7:43 AM CDT Ilir Nunez MD CHEMISTRY ORDERABLES Final Resu lt Performing Organization Address [facility]/ZIP Co de Phone Number [facility] [address] [place] [address] * (ABNORMAL) CMP (COMPREHENSIVE METABOLIC PANEL) (07/21/2024 7:03 AM CDT) SODIUM 142 136 - 145 mmol/L 07/21/2024 8:28 AM CDT [facility] POTASSIUM 4.1 3.5 - 5.1 mmol/L 07/21/2024 8:28 AM CDT [facility] CHLORIDE 110(H) 98 - 107 mmol/L 07/21/2024 8:28 AM CDT [facility] CO2, VENOUS 26 22 - 30 mmol/L 07/21/2024 8:28 AM CDT [facility] ANION GAP 10.1 <18.0 mmol/L 07/21/2024 8:28 AM CDT [facility] GLUCOSE 74 70 - 99 mg/dL 07/21/2024 8:28 AM CDT [facility] BUN 16 9 - 21 mg/dL 07/21/2024 8:28 AM CDT [facility] CREATININE, BLOOD 1.07 0.70 - 1.30 mg/dL 07/21/2024 8:28 AM CDT [facility] BUN/CREATININE RATIO 15 12 - 20 ratio 07/21/2024 8:28 AM CDT [facility] TOTAL PROTEIN 7.1 6.0 - 8.0 g/dL 07/21/2024 8:28 AM CDT [facility] ALBUMIN 4.0 3.5 - 5.0 g/dL 07/21/2024 8:28 AM CDT [facility] A/G RATIO 1.3 1.0 - 2.2 07/21/2024 8:28 AM CDT [facility] CALCIUM 9.1 8.7 - 10.5 mg/dL 07/21/2024 8:28 AM CDT [facility] T BILI 0.4 0.2 - 1.2 mg/dL 07/21/2024 8:28 AM CDT [facility] SGOT (AST) 28 <43 U/L 07/21/2024 8:28 AM CDT [facility] SGPT (ALT) 23 <56 U/L 07/21/2024 8:28 AM CDT [facility] ALKALINE PHOSPHATASE 38(L) 40 - 150 U/L 07/21/2024 8:28 AM CDT [facility] GFR, ESTIMATED >60 >=60 07/21/2024 8:28 AM CDT [facility] Comment: Creatinine Clearance is the preferred criteria for selecting drug dose adjustments in renally impaired patients. The GFR is provided as additional pertinent clinical information. GFR is reported in mL/min/1.73 sq m. Calculation based on the Chronic Kidney Disease Epidemiology Collaboration (CKD- EPI) equation refit without adjustment for race. GFR, EST. >60 >=60 025 8:28 AM CDT [facility] GFR, EST. 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
--- OUTSIDE RECORDS SUMMARY | 2024-11-17 07:58 | XMS_ITS | Encounter Summary ---
Author Organization [facility] Address [address] [place] [address] Phone Care Team Providers Care Cementer Helper Name Role Phone Tyree Serna MD Primary Care Provider [phone] Ilir Nunez MD Primary Care Provider [phone] Nadya Harrell APRN, SCIENTIST/ENGINEER Unavailable [phone] Encounter Details Date Type Department Care Team (Late st Contact Info) Description 12/05/2021 Lab Requisition [facility] [address] [place] [address] Tyree Serna MD [address] [place] [address], [place] [id number] Encounter for screening for COVID-19 Social History [...] Associated Diagnosis Comments SARS-COV-2 BY MOLECULAR Routine 12/05/2021 8:20 AM CDT Encounter for screening for COVID-19 documented in this encounter Results * SARS-COV-2 BY MOLECULAR (12/05/2021 8:20 AM CDT) SARSCOV2 NOT DETECTED (Referen ce Range for this test is Not Detected ) [facility] THERMOFISHER FAST DX 12/06/2021 6:15 AM CDT [facility] Comment:This test was perfor med by a RT-PCR method. Other Non-Phlebotomy Collection / Unknown 12/05/2021 8:20 AM CDT 12/05/2021 12:09 PM CDT Narrative [facility] - 12/06/2021 6:15 AM CDT Authorized Fact Sheets about this test for providers and patients are available at: https://www.fda.gov/medical-devices/ojuffiffl-xddjquoqtz-mucweot-devices/emergen -us e-authorizations us Tyree Serna MD MICROBIOLOGY - GENERAL ORDERAB LES Final Result [facility] [address] [place] [address], documented in this encounter Visit Diagnoses Diagnosis Encounter for screening for COVID-19 documented in this encounter Additional Health Concerns Infection Onset Date Last Indicated Resolved Time COVID - 19 08/29/2021 02/13/2022 02/23/2022 12:1 6 AM ENROLLMENT ADVISOR COVID - 19 04/03/2022 06/19/2022 06/29/2022 12:1 6 AM CDT documented as of this encounter Care Teams Cementer Helper Relationship Specialty Start Date End Date yTree Serna MD [address] [place] [address] [address] [place] [address] PCP - General Family Medicine 02/21/21 02/22/24 Ilir Nunez MD [address] [place] [address] PCP - General Family Medicine 02/23/24 Nadya Harrell, VISCOSITY TESTER, SCIENTIST/ENGINEER [address], [address] [address] Certified Nurse Practitioner 02/23/24 documented as of this encounter
--- OUTSIDE RECORDS SUMMARY | 2024-11-17 07:58 | XMS_ITS | Encounter Summary ---
Author Organization [facility] Address [address] [place] [address] Phone Care Team Providers Care Hot Dip Plater Name Role Phone Tyree Serna MD Primary Care Provider [phone] Ilir Nunez MD Primary Care Provider [phone] Nadya Harrell APRN, CONSULTANT EDUCATION Unavailable [phone] Encounter Details Date Type Department Care Team (Late st Contact Info) Description 09/12/2021 Lab Requisition [facility] [address] [place] [address] Tyree Serna MD [address] [place] [address] [place] [address] Encounter for screening for COVID-19 [...] Associated Diagnosis Comments SARS-COV-2 BY MOLECULAR Routine 09/12/2021 8:45 AM CDT Encounter for screening for COVID-19 documented in this encounter Results * SARS-COV-2 BY MOLECULAR (09/12/2021 8:45 AM CDT) SARSCOV2 NOT DETECTED (Referen ce Range for this test is Not Detected ) [facility] THERMOFISHER FAST DX 09/13/2021 9:54 AM CDT [facility] Comment:This test was perfor med by a RT-PCR method. Other Non-Phlebotomy Collection / Unknown 09/12/2021 8:45 AM CDT 09/12/2021 1:23 PM CDT Narrative [facility] - 09/13/2021 9:54 AM CDT Authorized Fact Sheets about this test for providers and patients are available at: https://www.fda.gov/medical-devices/wfdcavyav-polwiyuefb-xmyyuqz-devices/emergen -us e-authorizations us Tyree Serna MD MICROBIOLOGY - GENERAL ORDERAB LES Final Result [facility] [address] [place] [address], documented in this encounter Visit Diagnoses Diagnosis Encounter for screening for COVID-19 documented in this encounter Additional Health Concerns Infection Onset Date Last Indicated Resolved Time COVID - 19 08/29/2021 02/13/2022 02/23/2022 12:1 6 AM DIRECT MARKETING REPRESENTATIVE COVID - 19 04/03/2022 06/19/2022 06/29/2022 12:1 6 AM CDT documented as of this encounter Care Teams Hot Dip Plater Relationship Specialty Start Date End Date Tyree Serna MD [address] [place] [address] [address] [place] [address] PCP - General Family Medicine 02/21/21 02/22/24 [place] [address] PCP - General Family Medicine 02/23/24 Nadya Harrell, PERFORMANCE INSTRUCTOR, CONSULTANT EDUCATION [address], [facility] [address] [place] [address] Certified Nurse Practitioner 02/23/24 documented as of this encounter
--- OUTSIDE RECORDS SUMMARY | 2024-11-17 07:58 | XMS_ITS | Encounter Summary ---
Author Organization [facility] Address [address] [place] [address] Phone Care Team Providers Care Shingle Weaver Name Role Phone Tyree Serna MD Primary Care Provider [phone] Ilir Nunez MD Primary Care Provider [phone] Nadya Harrell APRN, EXHIBIT ELECTRICIAN Unavailable Encounter Details Date Type Department Care Team (Late st Contact Info) Description 05/23/2021 Lab Requisition [facility] [address] [place] [address] Tyree Serna MD [address] [place] [address] [address], [place] [phone] Encounter for screening for COVID-19 Social History [...] Associated Diagnosis Comments SARS-COV-2 BY MOLECULAR Routine 05/23/2021 7:41 AM DINKEY LOCOMOTIVE OPERATOR Encounter for screening for COVID-19 documented in this encounter Results * SARS-COV-2 BY MOLECULAR (05/23/2021 7:41 AM DINKEY LOCOMOTIVE OPERATOR) SARSCOV2 NOT DETECTED (Referen ce Range for this test is Not Detected ) [facility] THERMOFISHER FAST DX 05/24/2021 12:35 AM DINKEY LOCOMOTIVE OPERATOR [facility] Comment:This test was perfor med by a RT-PCR method. Other Non-Phlebotomy Collection / Unknown 05/23/2021 7:41 AM DINKEY LOCOMOTIVE OPERATOR 05/23/2021 10:49 AM DINKEY LOCOMOTIVE OPERATOR Narrative [facility] - 05/24/2021 12:35 AM DINKEY LOCOMOTIVE OPERATOR Authorized Fact Sheets about this test for providers and patients are available at: https://www.fda.gov/medical-devices/ptqavdbta-cxgimcakhu-nptzbtq-devices/emergen -us e-authorizations us Tyree Serna MD MICROBIOLOGY - GENERAL ORDERAB LES Final Result [facility] [address] [place] [address], documented in this encounter Visit Diagnoses Diagnosis Encounter for screening for COVID-19 documented in this encounter Additional Health Concerns Infection Onset Date Last Indicated Resolved Time COVID - 19 02/21/2021 05/30/2021 05/31/2021 11:1 0 AM DINKEY LOCOMOTIVE OPERATOR COVID - 19 Confirmed 05/30/2021 05/30/2021 022 12:18 AM CDT COVID - 19 08/29/2021 02/13/2022 02/23/2022 12:1 6 AM DINKEY LOCOMOTIVE OPERATOR COVID - 19 04/03/2022 06/19/2022 06/29/2022 12:1 6 AM CDT documented as of this encounter Care Teams Shingle Weaver Relationship Specialty Start Date End Date Tyree Serna MD [address] [place] [address] [address] [place] [address] PCP - General Family Medicine 02/21/21 02/22/24 [place] [address] PCP - General Family Medicine 02/23/24 Nadya Harrell, ALYX, EXHIBIT ELECTRICIAN [address] , [facility] [address] [place] [address] Certified Nurse Practitioner 02/23/24 documented as of this encounter
--- OUTSIDE RECORDS SUMMARY | 2024-11-17 07:58 | XMS_ITS | Encounter Summary ---
Author Organization [facility] Address [address] [place] [address] Phone Care Team Providers Care Mixologist Name Role Phone Josie Templeton MD Primary Care Provider [phone] Nadya Harrell NP Primary Care Provider [phone] Encounter Details Date Type Department Care Team (Late st Contact Info) Description 2022 Orders Only [facility] [address] [place] [address] Scanning, Provider Social History Tobacco Use Types Packs/Day Years Used Date Smoking Tobacco: Never Smokeless Tobacco: Never PHQ-2 Answer Date Recorded PHQ-2 Total Score (If total score is 3 or more points, staff should administer the PHQ-9) 0 01/29/2022 Sex and Gender Information Value Date Recorded Sex Assigned at Not on file Legal Sex Male 9:29 AM COMPUTATIONAL MATHEMATICIAN Gender Identity Not on file Sexual Orientation Not on file documented as of this encounter Plan of Treatment Not on file documented as of this encounter Procedures Procedure Name Priority Date/Time Associated Diagnosis Comments SCAN - LABS 2022 documented in this encounter Results * SCAN - LABS (2022) us Provider Scanning Final Result documented in this encounter Visit Diagnoses Not on filedocumented in this encounter Care Teams Mixologist Relationship Specialty Start Date End Date Josie Templeton MD PCP - General Family Practice 01/29/22 11/26/23 Nadya Harrell NP [address] [place] [address] PCP - General Family Medicine 11/27/23 documented as of this encounter
--- OUTSIDE RECORDS SUMMARY | 2024-11-17 07:58 | XMS_ITS | Encounter Summary ---
Author Organization [facility] Address [address] [place] [address] Phone Care Team Providers Care Calciner Operator Name Role Phone Tyree Serna MD Primary Care Provider [phone] Ilir Nunez MD Primary Care Provider [phone] Nadya Harrell APRN, SHEARER HELPER Unavailable [phone] Encounter Details Date Type Department Care Team (Late st Contact Info) Description 09/26/2021 Lab Requisition [facility] Laboratory Services [address] [place] [address] Tyree Serna MD [address] [place] [address] [place] [address] Encounter for screening for COVID-19 [...] Associated Diagnosis Comments SARS-COV-2 BY MOLECULAR Routine 09/26/2021 8:16 AM CDT Encounter for screening for COVID-19 documented in this encounter Results * SARS-COV-2 BY MOLECULAR (09/26/2021 8:16 AM CDT) SARSCOV2 NOT DETECTED (Referen ce Range for this test is Not Detected ) [facility] THERMOFISHER FAST DX 09/26/2021 10:13 PM CDT [facility] Comment:This test was perfor med by a RT-PCR method. Other Non-Phlebotomy Collection / Unknown 09/26/2021 8:16 AM CDT 09/26/2021 9:35 AM CDT Narrative [facility] - 09/26/2021 10:13 PM CDT Authorized Fact Sheets about this test for providers and patients are available at: https://www.fda.gov/medical-devices/tjwgzbjnp-mqglulhctq-hybtmxa-devices/emergen -us e-authorizations us Tyree Serna MD MICROBIOLOGY - GENERAL ORDERAB LES Final Result [facility] [address] [place] [address], documented in this encounter Visit Diagnoses Diagnosis Encounter for screening for COVID-19 documented in this encounter Additional Health Concerns Infection Onset Date Last Indicated Resolved Time COVID - 19 08/29/2021 02/13/2022 02/23/2022 12:1 6 AM TEACHER MUSIC COVID - 19 04/03/2022 06/19/2022 06/29/2022 12:1 6 AM CDT documented as of this encounter Care Teams Calciner Operator Relationship Specialty Start Date End Date Tyree Serna MD [address] [facility] [address] [place] [address] PCP - General Family Medicine 02/21/21 02/22/24 [place] [address] PCP - General Family Medicine 02/23/24 Nadya Harrell, BLANKET WASHER, SHEARER HELPER [address], [address] [address] Certified Nurse Practitioner 02/23/24 documented as of this encounter
--- OUTSIDE RECORDS SUMMARY | 2024-11-17 07:58 | XMS_ITS | Encounter Summary ---
Author Organization [facility] Address [address] [place] [address] Phone Care Team Providers Care Relay Telegrapher Name Role Phone Tyree Serna MD Primary Care Provider [phone] Ilir Nunez MD Primary Care Provider [phone] Nadya Harrell APRN, WAREHOUSE SHIPPING SUPERVISOR Unavailable Encounter Details Date Type Department Care Team (Late st Contact Info) Description 10/24/2021 Lab Requisition [facility] Laboratory Services 1 [place] [address] Tyree Serna MD [address] [place] [address] [place] [address] Encounter for screening for COVID-19 [...] Associated Diagnosis Comments SARS-COV-2 BY MOLECULAR Routine 10/24/2021 8:07 AM CDT Encounter for screening for COVID-19 documented in this encounter Results * SARS-COV-2 BY MOLECULAR (10/24/2021 8:07 AM CDT) SARSCOV2 NOT DETECTED (Referen ce Range for this test is Not Detected ) [facility] THERMOFISHER FAST DX 10/25/2021 12:04 AM CDT [facility] Comment:This test was perfor med by a RT-PCR method. Other Non-Phlebotomy Collection / Unknown 10/24/2021 8:07 AM CDT 10/24/2021 9:10 PM CDT Narrative [facility] - 10/25/2021 12:04 AM CDT Authorized Fact Sheets about this test for providers and patients are available at: https://www.fda.gov/medical-devices/nhkyxcqtm-nxztcxynuu-mygryrp-devices/emergen cy-us e-authorizations us Tyree Serna MD MICROBIOLOGY - GENERAL ORDERAB LES Final Result [facility] [address] [place] [address], documented in this encounter Visit Diagnoses Diagnosis Encounter for screening for COVID-19 documented in this encounter Additional Health Concerns Infection Onset Date Last Indicated Resolved Time COVID - 19 08/29/2021 02/13/2022 02/23/2022 12:1 6 AM RN MEDICARE COVID - 19 04/03/2022 06/19/2022 06/29/2022 12:1 6 AM CDT documented as of this encounter Care Teams Relay Telegrapher Relationship Specialty Start Date End Date Tyree Serna MD [address] [facility] [address] [place] [address] PCP - General Family Medicine 02/21/21 02/22/24 [place] [address] PCP - General Family Medicine 02/23/24 Nadya Harrell, FORMING MACHINE OPERATOR, WAREHOUSE SHIPPING SUPERVISOR [address], [address] [address] Certified Nurse Practitioner 02/23/24 documented as of this encounter
--- OUTSIDE RECORDS SUMMARY | 2024-11-17 07:58 | XMS_ITS | Encounter Summary ---
Author Organization [facility] Address [address] [place] [address] Phone Care Team Providers Care Inspector Integrated Circuits Name Role Phone Jocy Welch MD Primary Care Provider [phone] Tyree Serna MD Primary Care Provider [phone] Jocy Welch MD Unavailable [phone] Ilir Nunez MD Primary Care Provider [phone] Nadya Harrell APRN, TOPOGRAPHICAL SURVEYOR Unavailable [phone] Encounter Details Date Type Department Care Team (Late st Contact Info) Description 01/31/[address] [facility] Laboratory Services 1 [place] [id number] Tyree Serna MD [address] [place] [address] [address] [place] [address] Encounter for screening for COVID-19 [...] Associated Diagnosis Comments SARS-COV-2 BY MOLECULAR Routine 01/31/2021 8:16 AM CDT Encounter for screening for COVID-19 documented in this encounter Results * SARS-COV-2 BY MOLECULAR (01/31/2021 8:16 AM CDT) SARSCOV2 NOT DETECTED (Referen ce Range for this test is Not Detected ) [facility] THERMOFISHER FAST DX 01/31/2021 11:07 PM CDT [facility] Comment:This test was perfor med by a RT-PCR method. Other Non-Phlebotomy Collection / Unknown 01/31/2021 8:16 AM CDT 01/31/2021 11:57 AM CDT Narrative [facility] - 01/31/2021 11:07 PM CDT Authorized Fact Sheets about this test for providers and patients are available at: https://www.fda.gov/medical-devices/qkxqcroew-rlvapvgmwi-hddspkv-devices/emergen -us e-authorizations us Tyree Serna MD MICROBIOLOGY - GENERAL ORDERAB LES Final Result [facility] [address] [place] [address], documented in this encounter Visit Diagnoses Diagnosis Encounter for screening for COVID-19 documented in this encounter Additional Health Concerns Infection Onset Date Last Indicated Resolved Time COVID - 19 12/27/2020 02/28/2021 03/06/2021 12:1 6 AM SEMIAUTOMATIC TAPER OPERATOR COVID - 19 02/21/2021 05/30/2021 05/31/2021 11:1 0 AM SEMIAUTOMATIC TAPER OPERATOR COVID - 19 Confirmed 05/30/2021 05/30/2021 022 12:18 AM CDT COVID - 19 08/29/2021 02/13/2022 02/23/2022 12:1 6 AM SEMIAUTOMATIC TAPER OPERATOR COVID - 19 04/03/2022 06/19/2022 06/29/2022 12:1 6 AM CDT documented as of this encounter Care Teams Inspector Integrated Circuits Relationship Specialty Start Date End Date Jocy Welch MD PCP - General Family Medicine 10/19/15 02/20/21 Tyree Serna MD [address] [facility] [address] [place] [address] PCP - General Family Medicine 02/21/21 02/22/24 Ilir Nunez MD [address] [place] [address] PCP - General Family Medicine 02/23/24 Jocy Welch MD Family Medicine 02/21/21 04/04/21 Nadya Harrell, EVP GENERAL COUNSEL, TOPOGRAPHICAL SURVEYOR [address], [facility] [address] [place] [address] Certified Nurse Practitioner 02/23/24 documented as of this encounter
--- OUTSIDE RECORDS SUMMARY | 2024-11-17 07:58 | XMS_ITS | Clinical Summary ---
Author Organization [facility] Address [address] [place] [address] Care Team Providers Care Strickler Attendant Name Role Phone Ilir Nunez MD Primary Care Provider [phone] Nadya Harrell APRN, CASTING TRUCKER Unavailable [phone] Allergies No known active allergies Medications lurasidone (LATUDA) 20 MG Tablet Take 20 mg by mouth every evening. Take with 80 mg to equal 100 mg Active ferrous sulfate 325 (65 Fe) MG Tablet Take 325 mg by mouth every morning. Active folic acid (FOLVITE) 1 MG Tablet Take 1 mg by mouth every morning. Active levothyroxine (SYNTHROID) 50 MCG Tablet Take 50 mcg by mouth every morning. Active Ergocalciferol (VITAMIN D2 PO) Take 50,000 Units by mouth once a week. Active Cyanocobalamin (VITAMIN B-12 CR) 1000 MCG Tablet Controlled Release Take 1,000 mcg by mouth every morning. Active benztropine (COGENTIN) 1 MG Tablet Take 1 mg by mouth 2 times daily. Active busPIRone HCl 7.5 MG Tablet Take 7.5 mg by mouth 2 times daily. Active sodium chloride (DEEP SEA NASAL SPRAY) 0.65 % Solution 1 Potter by Nasal route 2 times daily. Active divalproex (DEPAKOTE) 500 MG Tablet Delayed Response Take 500 mg by mouth 3 times daily. Active Lurasidone HCl (LATUDA) 80 MG Tablet Take 80 mg by mouth every evening. Take with 20 mg table to equal 100 mg Active lithium 150 MG Capsule Take 450 mg by mouth nightly. Active OLANZapine (ZYPREXA) 5 MG Tablet Take 5 mg by mouth nightly. Active tamsulosin (FLOMAX) 0.4 MG Capsule Take 0.4 mg by mouth every morning. Active Active Problems Problem Noted Date Diagnosed Date Hypoparathyroidism, unspecified 05/05/2019 Vitamin D deficiency 05/05/2019 Anemia, unspecified 09/08/2018 Hypothyroidism, unspecified 09/08/2018 Benign prostatic hyperplasia 09/08/2018 Schizophrenia 09/08/2018 Generalized anxiety disorder 09/08/2018 Autistic disorder 09/08/2018 Bipolar disorder 09/08/2018 Mild intellectual disability 09/08/2018 Pervasive developmental disorder 09/08/2018 Personality disorder 09/08/2018 Nasal congestion 09/08/2018 Encounters Date Type Department Care Team Description 10/20/2024 Lab Requisition [facility] Laboratory Services 1 [place] [address] Nadya Morris MD Bipolar disorder, unspecified (HCC); Personality disorder, unspecified; Anemia, unspecified; Hypothyroidism, unspecified; Anxiety disorder, unspecified; Schizophrenia, unspecified from Last 3 Months Immunizations Immunization Administration Dates Next Due Covid-19, Mrna, Lnp-s, Pf, 30 Mcg/0.3 Ml Dose (P fizer) 02/09/2021 Influenza Vaccine 02/05/2018 Influenza Vaccine,unspecified Formulation 2012 Pneumococcal Vaccine Adult - 23 Valent 3 Social History Tobacco Use Types Packs/Day Years Used Date Smoking Tobacco: Never Smokeless Tobacco: Never Alcohol Use Standard Drinks/Week Comments Never 0 (1 standard drink = 0.6 oz pur e alcohol) Sex and Gender Information Value Date Recorded Sex Assigned at Not on file Legal Sex Male 3:47 PM CDT Gender Identity Not on file Sexual Orientation Not on file Last Filed Vital Signs Vital Sign Reading Time Taken Comments Blood Pressure 103/72 03/27/2022 10:04 AM ACTIVITY MANAGER Pulse 91 03/27/2022 10:04 AM ACTIVITY MANAGER Temperature 36.1 C (96.9 F) 03/27/2022 10:04 AM ACTIVITY MANAGER Respiratory Rate 16 03/27/2022 10:04 AM ACTIVITY MANAGER Oxygen Saturation 99% 03/27/2022 10:04 AM ACTIVITY MANAGER Inhaled Oxygen Concentration - - Weight 81.6 kg (180 lb) 09/25/2021 2:44 PM CDT Height 175.3 cm (5' 9) 09/25/2021 2:44 PM CDT Body Mass Index 26.58 09/25/2021 2:44 PM CDT Plan of Treatment Health Maintenance Due Date Last Done Comments Hepatitis C Virus (HCV) Screening 1989 TdaP Immunization 1989 Hepatitis B Immunization (1 of 3 - 19+ 3-dose series) 2008 Human Papillomavirus (HPV) Immunization (1 - 3-dose SCDM series) 2016 SARS-COV-2 Immunization ( - season) 2023 02/09/2021, 06/09/2020, 05/18/2020 Influenza Immunization (#1) 12/06/202404/2017, 01/26/2013 Respiratory Syncytial Virus (RSV) Immunization (Adult) (1 - 1-dose 75+ series) 2064 Pneumococcal Immunization Combined Aged Out 04/05/2013 No longer eligible b ased on patient's age to complete this topic Meningococcal Immunization (ACWY) Aged Out No longer eligible b ased on patient's age to complete this topic Rotavirus Immunization Aged Out No lo nger eligible based on patient's age to complete this topic Procedures Procedure Name Priority Date/Time Associated Diagnosis [...] Hypothyroidism, unspecified Anxiety disorder, unspecified Schizophrenia, unspecified from Last 3 Months Results * (ABNORMAL) CBC WITH AUTO DIFFERENTIAL (10/20/2024 6:54 AM CDT) WBC 7.41 4.00 - 12.00 10(3)/mcL 10/20/2024 7:52 AM CDT [facility] RBC 4.21(L) 4.40 - 5.80 10(6)/mcL 10/20/2024 7:52 AM CDT [facility] HEMOGLOBIN (HGB) 12.9(L) 13.0 - 16.5 g/dL 10/20/2024 7:52 AM CDT [facility] HEMATOCRIT (HCT) 40.0 38.0 - 50.0 % 10/20/2024 7:52 AM CDT [facility] MCV 95.0 82.0 - 96.0 fL 10/20/2024 7:52 AM CDT [facility] MCH 30.6 26.0 - 32.0 pg 10/20/2024 7:52 AM CDT [facility] MCHC 32.3 31.0 - 36.0 g/dL 10/20/2024 7:52 AM CDT [facility] PLATELET COUNT 206 140 - 440 10(3)/mcL 10/20/2024 7:52 AM CDT [facility] RDW 13.1 11.8 - 15.5 % 10/20/2024 7:52 AM CDT [facility] MPV 11.0 8.0 - 12.6 fL 10/20/2024 7:52 AM CDT [facility] NEUTROPHILS 42.9 40.0 - 68.0 % 10/20/2024 7:52 AM CDT [facility] LYMPHOCYTES 45.6 19.0 - 49.0 % 10/20/2024 7:52 AM CDT [facility] MONOCYTES 8.4 3.0 - 13.0 % 10/20/2024 7:52 AM CDT [facility] EOSINOPHILS 2.2 0.0 - 8.0 % 10/20/2024 7:52 AM CDT [facility] BASOPHILS 0.4 0.0 - 1.0 % 10/20/2024 7:52 AM CDT [facility] IMMATURE GRANULOCYTE 0.5(H) 0.0 - 0.4 % 10/20/2024 7:52 AM CDT [facility] Comment:Immature Granulocyte s includes Metamyelocytes, Myelocytes, and Promyelocytes. ABSOLUTE NEUTROPHILS 3.18 1.40 - 5.30 10(3)/mcL 10/20/2024 7:52 AM CDT [facility] ABSOLUTE LYMPHOCYTES 3.38(H) 0.90 - 3.30 10(3)/mcL 10/20/2024 7:52 AM CDT [facility] ABSOLUTE MONOCYTES 0.62 0.10 - 0.90 10(3)/[facility] 10/20/2024 7:52 AM CDT [facility] ABSOLUTE EOSINOPHIL 0.16 0.00 - 0.50 10(3)/mcL 10/20/2024 7:52 AM CDT [facility] ABSOLUTE BASOPHILS 0.03 0.00 - 0.10 10(3)/[facility] 10/20/2024 7:52 AM CDT [facility] ABSOLUTE IMMATURE GRANULOCYTE 0.04(H) 0.00 - 0.03 10 (3) mcL. 10/20/2024 7:52 AM CDT [facility] NRBC PER 100 WBC 0 10/21/19 7:52 AM CDT [facility] Blood Venipuncture / Unknown 10/20/2024 6:54 AM CDT 10/20/2024 7:41 AM CDT us Nadya Morris MD HEMATOLOGY ORDERABLES Final Re sult Performing Organization Address City/[facility]/ZIP Co de Phone Number [facility] [place] [address] * VALPROIC ACID (DEPAKENE) (10/20/2024 6:54 AM CDT) Pathologist [facility] VALPROIC ACID TOTAL 92 50 - 100 mcg/mL 10/20/2024 11:02 AM CDT [facility] Blood Venipuncture / Unknown 10/20/2024 6:54 AM CDT 10/20/2024 7:41 AM CDT us Nadya Morris MD CHEMISTRY ORDERABLES Final Res ult Performing Organization Address [facility] Co de Phone Number [facility] [place] [address] * (ABNORMAL) LITHIUM (10/20/2024 6:54 AM CDT) [facility] LITHIUM 0.4(L) 0.8 - 1.2 mmol/L 10/20/2024 10:55 AM CDT [facility] Blood Venipuncture / Unknown 10/20/2024 6:54 AM CDT 10/20/2024 7:41 AM CDT us Nadya Morris MD CHEMISTRY ORDERABLES Final Res ult Performing Organization Address City/[facility]/ZIP Co de Phone Number [facility] [place] [address] * (ABNORMAL) LIPID PANEL (10/20/2024 6:54 AM CDT) Pathologist [facility] CHOLESTEROL 167 <200 mg/dL 10/20/2024 11:02 AM CDT [facility] TRIGLYCERIDES 190(H) <150 mg/dL 10/20/2024 11:02 AM CDT [facility] HDL CHOLESTEROL 36(L) >40 mg/dL 11:02 AM CDT [facility] LDL 93 <130 mg/dL 10/20/2024 11:02 AM CDT [facility] VLDL 38 10 - 50 mg/dL 10/20/2024 11:02 AM CDT [facility] CHOL/HDL RATIO 4.6(H) 0.0 - 4.4 10/20/2024 11:02 AM CDT [facility] NON-HDL CHOLESTEROL 131(H) <130 mg/dL 10/20/2024 11:02 AM CDT [facility] Blood Venipuncture / Unknown 10/20/2024 6:54 AM CDT 10/20/2024 7:41 AM CDT us Nadya Morris MD CHEMISTRY ORDERABLES Final Res ult [facility] [place] [address] * (ABNORMAL) CMP (COMPREHENSIVE METABOLIC PANEL) (10/20/2024 6:54 AM CDT) SODIUM 144 136 - 145 mmol/L 10/20/2024 11:02 AM CDT [facility] POTASSIUM 4.1 3.5 - 5.1 mmol/L 10/20/2024 11:02 AM CDT [facility] CHLORIDE 111(H) 98 - 107 mmol/L 10/20/2024 11:02 AM CDT [facility] CO2, VENOUS 25 22 - 30 mmol/L 10/20/2024 11:02 AM CDT [facility] ANION GAP 12.1 <18.0 mmol/L 10/20/2024 11:02 AM [facility] GLUCOSE 71 70 - 99 mg/dL 10/20/2024 11:02 AM [facility] BUN 13 9 - 21 mg/dL 10/20/2024 11:02 AM [facility] CREATININE, BLOOD 1.17 0.70 - 1.30 mg/dL 10/20/2024 11:02 AM [facility] BUN/CREATININE RATIO 11(L) 12 - 20 ratio 10/20/2024 11:02 AM [facility] TOTAL PROTEIN 7.4 6.0 - 8.0 g/dL 10/20/2024 11:02 AM [facility] ALBUMIN 4.4 3.5 - 5.0 g/dL 10/20/2024 11:02 AM [facility] A/G RATIO 1.5 1.0 - 2.2 10/20/2024 11:02 AM [facility] CALCIUM 9.4 8.7 - 10.5 mg/dL 10/20/2024 11:02 AM [facility] T BILI 0.3 0.2 - 1.2 mg/dL 10/20/2024 11:02 AM [facility] SGOT (AST) 29 <43 U/L 10/20/2024 11:02 AM [facility] SGPT (ALT) 25 <56 U/L 10/20/2024 11:02 AM [facility] ALKALINE PHOSPHATASE 35(L) 40 - 150 U/L 10/20/2024 11:02 AM [facility] GFR, ESTIMATED >60 >=60 10/20/2024 11:02 AM [facility] Comment: Creatinine Clearance is the preferred criteria for selecting drug dose adjustments in renally impaired patients. The GFR is provided as additional pertinent clinical information. GFR is reported in mL/min/1.73 sq m. Calculation based on the Chronic Kidney Disease Epidemiology Collaboration (CKD- EPI) equation refit without adjustment for race. GFR, EST. >60 >=60 025 11:02 AM CDT [facility] GFR, EST. NONAFRICAN >60 >=60 10/20/2024 11:02 AM CDT [facility] Blood Venipuncture / Unknown 10/20/2024 6:54 AM CDT 10/20/2024 7:41 AM CDT us Nadya Morris MD CHEMISTRY ORDERABLES Final Res ult [facility] [place] [address] from Last 3 Months Insurance JESUSEDSON RUIZ [address] [place] [id number] MEDICAID [place] MEDICARE C [employer] JESUS KARAN FDN [address] [place] [address] MEDICARE Member Subscriber Plan / Payer (Ef fective 2009-Present) Name:Chadd Maier Member ID:[id number] Relation to Subscriber:Self Name:Chadd Maier Subscriber ID:[id number] Payer ID:[id number] Group ID:Not on file Type:Not on file Address: [address] [employer] [place] [address] Advance Directives Documents on File Type Date Recorded Patient Grades 1 Thru 6 Visiting Teacher Expl anation Other Advance Directive 09/19/2021 10:14 AM jesus vaca 2 Care Teams Strickler Attendant Relationship Specialty Start Date End Date Ilir Nunez MD [address] [place] [address] PCP - General Family Medicine 02/23/24 Nadya Harrell, GROUP CONTRACT ANALYST, CASTING TRUCKER [address], [address] [place] [address] Certified Nurse Practitioner 02/23/24
--- OUTSIDE RECORDS SUMMARY | 2024-11-17 07:58 | XMS_ITS | Encounter Summary ---
Author Organization [facility] Address [address] [place] [address] Phone Care Team Providers Care Assembler Cards And Announcements Name Role Phone Tyree Serna MD Primary Care Provider Jocy Welch MD Unavailable Ilir Nunez MD Primary Care Provider [phone] Nadya Harrell APRN, CLERICAL MANAGER Unavailable Encounter Details Date Type Department Care Team (Late st Contact Info) Description 03/28/2021 Lab Requisition [facility] Laboratory Services 1 [place] [address] Tyree Serna MD [address] [place] [address] [address] [place], [place] [id number] Encounter for screening for COVID-19 Social History [...] Associated Diagnosis Comments SARS-COV-2 BY MOLECULAR Routine 03/28/2021 8:18 AM VICE PRESIDENT RISK MANAGEMENT Encounter for screening for COVID-19 documented in this encounter Results * SARS-COV-2 BY MOLECULAR (03/28/2021 8:18 AM VICE PRESIDENT RISK MANAGEMENT) SARSCOV2 NOT DETECTED (Referen ce Range for this test is Not Detected ) [facility] THERMOFISHER FAST DX 04/02/2021 7:17 AM VICE PRESIDENT RISK MANAGEMENT [facility] Comment:This test was perfor med by a RT-PCR method. Other Non-Phlebotomy Collection / Unknown 03/28/2021 8:18 AM VICE PRESIDENT RISK MANAGEMENT 03/28/2021 11:28 AM VICE PRESIDENT RISK MANAGEMENT Narrative [facility] - 04/02/2021 7:17 AM VICE PRESIDENT RISK MANAGEMENT Authorized Fact Sheets about this test for providers and patients are available at: https://www.fda.gov/medical-devices/dgamrwpty-bdzsamnjwr-eghnejz-devices/emergen -us e-authorizations us Tyree Serna MD MICROBIOLOGY - GENERAL ORDERAB LES Final Result [facility] [address] [place] [address], documented in this encounter Visit Diagnoses Diagnosis Encounter for screening for COVID-19 documented in this encounter Additional Health Concerns Infection Onset Date Last Indicated Resolved Time COVID - 19 02/21/2021 05/30/2021 05/31/2021 11:1 0 AM VICE PRESIDENT RISK MANAGEMENT COVID - 19 Confirmed 05/30/2021 05/30/2021 022 12:18 AM CDT COVID - 19 08/29/2021 02/13/2022 02/23/2022 12:1 6 AM VICE PRESIDENT RISK MANAGEMENT COVID - 19 04/03/2022 06/19/2022 06/29/2022 12:1 6 AM CDT documented as of this encounter Care Teams Assembler Cards And Announcements Relationship Specialty Start Date End Date Tyree Serna MD [address] [facility] [address] [place] [address] PCP - General Family Medicine 02/21/21 02/22/24 [place] [address] PCP - General Family Medicine 02/23/24 Jocy Welch MD [address] [place] [address] [address] [place] [address] Family Medicine 02/21/21 04/04/21 Nadya Harrell, CLINICAL ENGINEERING MANAGER, CLERICAL MANAGER [address], [facility] [address] [place] [address] Certified Nurse Practitioner 02/23/24 documented as of this encounter
--- OUTSIDE RECORDS SUMMARY | 2024-11-17 07:58 | XMS_ITS | Encounter Summary ---
Author Organization [facility] Address [address] [place] [address] Phone Care Team Providers Care Development Educator Name Role Phone Tyree Serna MD Primary Care Provider [phone] Ilir Nunez MD Primary Care Provider [phone] Nadya Harrell APRN, RAIL PROJECT ENGINEER Unavailable Encounter Details Date Type Department Care Team (Late st Contact Info) Description 2021 Lab Requisition [facility] Laboratory Services 1 [place] [address] Tyree Serna MD [address] [place] [address] [address] [place], [place] [id number] Encounter for screening for COVID-19 Social History [...] Associated Diagnosis Comments SARS-COV-2 BY MOLECULAR Routine 2021 8:46 AM CDT Encounter for screening for COVID-19 documented in this encounter Results * SARS-COV-2 BY MOLECULAR (2021 8:46 AM CDT) SARSCOV2 NOT DETECTED (Referen ce Range for this test is Not Detected ) [facility] THERMOFISHER FAST DX 11/01/2021 9:26 AM CDT [facility] Comment:This test was perfor med by a RT-PCR method. Other Non-Phlebotomy Collection / Unknown 2021 8:46 AM CDT 2021 1:38 PM CDT Narrative [facility] - 11/01/2021 9:26 AM CDT Authorized Fact Sheets about this test for providers and patients are available at: https://www.fda.gov/medical-devices/jcmshpazr-mmofekzopy-rkxveat-devices/emergen -us e-authorizations us Tyree Serna MD MICROBIOLOGY - GENERAL ORDERAB LES Final Result [facility] [address] [place] [address], documented in this encounter Visit Diagnoses Diagnosis Encounter for screening for COVID-19 documented in this encounter Additional Health Concerns Infection Onset Date Last Indicated Resolved Time COVID - 19 08/29/2021 02/13/2022 02/23/2022 12:1 6 AM ANALYTICAL CONSULTANT COVID - 19 04/03/2022 06/19/2022 06/29/2022 12:1 6 AM CDT documented as of this encounter Care Teams Development Educator Relationship Specialty Start Date End Date Tyree Serna MD [address] [place] [address] [address] [place] [address] PCP - General Family Medicine 02/21/21 02/22/24 Ilir Nunez MD [address] [place] [address] PCP - General Family Medicine 02/23/24 Nadya Harrell, ROLL SLICING MACHINE TENDER, RAIL PROJECT ENGINEER [address], [address] [address] Certified Nurse Practitioner 02/23/24 documented as of this encounter
--- OUTSIDE RECORDS SUMMARY | 2024-11-17 07:58 | XMS_ITS | Encounter Summary ---
Author Organization [facility] Address [address] [place] [address] Phone Care Team Providers Care Admin Assistant Name Role Phone Tyree Serna MD Primary Care Provider [phone] Ilir Nunez MD Primary Care Provider [phone] Nadya Harrell APRN, OB GYN PHYSICIAN ASSISTANT Unavailable Encounter Details Date Type Department Care Team (Late st Contact Info) Description 10/03/2021 Lab Requisition [facility] Laboratory Services 1 [place] [address] Tyree Serna MD [address] [place] [address] [place] [address] Encounter for screening for COVID-19 [...] Associated Diagnosis Comments SARS-COV-2 BY MOLECULAR Routine 10/03/2021 8:13 AM CDT Encounter for screening for COVID-19 documented in this encounter Results * SARS-COV-2 BY MOLECULAR (10/03/2021 8:13 AM CDT) SARSCOV2 NOT DETECTED (Referen ce Range for this test is Not Detected ) [facility] THERMOFISHER FAST DX 10/03/2021 11:45 PM CDT [facility] Comment:This test was perfor med by a RT-PCR method. Other Non-Phlebotomy Collection / Unknown 10/03/2021 8:13 AM CDT 10/03/2021 10:05 AM CDT Narrative [facility] - 10/03/2021 11:45 PM CDT Authorized Fact Sheets about this test for providers and patients are available at: https://www.fda.gov/medical-devices/secvjussa-agbffijscj-bfbxpyj-devices/emergen cy-us e-authorizations us Tyree Serna MD MICROBIOLOGY - GENERAL ORDERAB LES Final Result [facility] [address] [place] [address], documented in this encounter Visit Diagnoses Diagnosis Encounter for screening for COVID-19 documented in this encounter Additional Health Concerns Infection Onset Date Last Indicated Resolved Time COVID - 19 08/29/2021 02/13/2022 02/23/2022 12:1 6 AM COPY READER COVID - 19 04/03/2022 06/19/2022 06/29/2022 12:1 6 AM CDT documented as of this encounter Care Teams Admin Assistant Relationship Specialty Start Date End Date Tyree Serna MD [address] [facility] [place] [address] PCP - General Family Medicine 02/21/21 02/22/24 [place] [address] PCP - General Family Medicine 02/23/24 Nadya Harrell, DEPARTURE CLERK, OB GYN PHYSICIAN ASSISTANT [address], [address] [address] Certified Nurse Practitioner 02/23/24 documented as of this encounter
--- OUTSIDE RECORDS SUMMARY | 2024-11-17 07:58 | XMS_ITS | Encounter Summary ---
Author Organization [facility] Address [address] [place] [address] Phone Care Team Providers Care Miner Assistant Name Role Phone Ilir Nunez MD Primary Care Provider [phone] Nadya Harrell APRN, PERSONNEL QUALITY ASSURANCE AUDITOR Unavailable [phone] Encounter Details Date Type Department Care Team (Late st Contact Info) Description 05/19/2024 Lab Requisition [facility] Laboratory Services 1 [place] [phone] Ilir Nunez MD [address] [place] [address] Anemia, unspecified; Schizophrenia, unspecified (HCC); Bipolar disorder, unspecified (HCC); Personality disorder, unspecified (HCC); Mild intellectual disabilities; Pervasive developmental disorder, unspecified; Anxiety disorder, unspecified; Hypothyroidism, unspecified Social History Tobacco Use Types Packs/Day [...] Diagnosis Comments CBC WITH AUTO DIFFERENTIAL Routine 05/19/2024 6:03 AM FREIGHT TEAM ASSOCIATE Anemia, unspecified Schizophrenia, unspecified (HCC) Bipolar disorder, unspecified (HCC) Personality disorder, unspecified (HCC) Mild intellectual disabilities Pervasive developmental disorder, unspecified Anxiety disorder, unspecified Hypothyroidism, unspecified VALPROIC ACID (DEPAKENE) Routine 05/19/2024 6:03 AM FREIGHT TEAM ASSOCIATE Anemia, unspecified Schizophrenia, unspecified (HCC) Bipolar disorder, unspecified (HCC) Personality disorder, unspecified (HCC) Mild intellectual disabilities Pervasive developmental disorder, unspecified Anxiety disorder, unspecified Hypothyroidism, unspecified LITHIUM Routine 05/19/2024 6:03 AM FREIGHT TEAM ASSOCIATE Anemia, unspecified Schizophrenia, unspecified (HCC) Bipolar disorder, unspecified (HCC) Personality disorder, unspecified (HCC) Mild intellectual disabilities Pervasive developmental disorder, unspecified Anxiety disorder, unspecified Hypothyroidism, unspecified LIPID PANEL Routine 05/19/2024 6:03 AM FREIGHT TEAM ASSOCIATE Anemia, unspecified Schizophrenia, unspecified (HCC) Bipolar disorder, unspecified (HCC) Personality disorder, unspecified (HCC) Mild intellectual disabilities Pervasive developmental disorder, unspecified Anxiety disorder, unspecified Hypothyroidism, unspecified CMP (COMPREHENSIVE METABOLIC PANEL) Routine 05/19/2024 6:03 AM FREIGHT TEAM ASSOCIATE Anemia, unspecified Schizophrenia, unspecified (HCC) Bipolar disorder, unspecified (HCC) Personality disorder, unspecified (HCC) Mild intellectual disabilities Pervasive developmental disorder, unspecified Anxiety disorder, unspecified Hypothyroidism, unspecified COMPLETE BLOOD COUNT (CBC) WITH DIFF Routine 05/19/2024 6:03 AM FREIGHT TEAM ASSOCIATE Anemia, unspecified Schizophrenia, unspecified (HCC) Bipolar disorder, unspecified (HCC) Personality disorder, unspecified (HCC) Mild intellectual disabilities Pervasive developmental disorder, unspecified Anxiety disorder, unspecified Hypothyroidism, unspecified documented in this encounter Results * (ABNORMAL) CBC WITH AUTO DIFFERENTIAL (05/19/2024 6:03 AM FREIGHT TEAM ASSOCIATE) WBC 7.18 4.00 - 12.00 10(3)/mcL 05/19/2024 6:40 AM FREIGHT TEAM ASSOCIATE [facility] RBC 3.68(L) 4.40 - 5.80 10(6)/mcL 05/19/2024 6:40 AM [facility] HEMOGLOBIN (HGB) 11.2(L) 13.0 - 16.5 g/dL 05/19/2024 6:40 AM [facility] HEMATOCRIT (HCT) 33.8(L) 38.0 - 50.0 % 05/19/2024 6:40 AM [facility] MCV 91.8 82.0 - 96.0 fL 05/19/2024 6:40 AM [facility] MCH 30.4 26.0 - 32.0 pg 05/19/2024 6:40 AM [facility] MCHC 33.1 31.0 - 36.0 g/dL 05/19/2024 6:40 AM [facility] PLATELET COUNT 217 140 - 440 10(3)/mcL 05/19/2024 6:40 AM [facility] RDW 13.1 11.8 - 15.5 % 05/19/2024 6:40 AM [facility] MPV 10.2 8.0 - 12.6 fL 05/19/2024 6:40 AM [facility] NEUTROPHILS 42.1 40.0 - 68.0 % 05/19/2024 6:40 AM [facility] LYMPHOCYTES 45.8 19.0 - 49.0 % 05/19/2024 6:40 AM [facility] MONOCYTES 8.4 3.0 - 13.0 % 05/19/2024 6:40 AM [facility] EOSINOPHILS 3.3 0.0 - 8.0 % 05/19/2024 6:40 AM [facility] BASOPHILS 0.4 0.0 - 1.0 % 05/19/2024 6:40 AM [facility] ABSOLUTE NEUTROPHILS 3.02 1.40 - 5.30 10(3)/mcL 05/19/2024 6:40 AM [facility] ABSOLUTE LYMPHOCYTES 3.29 0.90 - 3.30 10(3)/mcL 05/19/2024 6:40 AM FREIGHT TEAM ASSOCIATE [facility] ABSOLUTE MONOCYTES 0.60 0.10 - 0.90 10(3)/mcL 05/19/2024 6:40 AM FREIGHT TEAM ASSOCIATE [facility] ABSOLUTE EOSINOPHIL 0.24 0.00 - 0.50 10(3)/mcL 05/19/2024 6:40 AM FREIGHT TEAM ASSOCIATE [facility] ABSOLUTE BASOPHILS 0.03 0.00 - 0.10 10(3)/[facility] 05/19/2024 6:40 AM FREIGHT TEAM ASSOCIATE [facility] NRBC PER 100 WBC 0 05/19/19 6:40 AM FREIGHT TEAM ASSOCIATE [facility] Blood Venipuncture / Unknown 05/19/2024 6:03 AM FREIGHT TEAM ASSOCIATE 05/19/2024 6:26 AM FREIGHT TEAM ASSOCIATE us Ilir Nunez MD HEMATOLOGY ORDERABLES Final Res ult Performing Organization Address City/[facility]/ZIP Co de Phone Number [facility] [place] [address] * (ABNORMAL) LITHIUM (05/19/2024 6:03 AM FREIGHT TEAM ASSOCIATE) LITHIUM 0.7(L) 0.8 - 1.2 mmol/L 05/19/2024 6:52 AM FREIGHT TEAM ASSOCIATE [facility] Blood Venipuncture / Unknown 05/19/2024 6:03 AM FREIGHT TEAM ASSOCIATE 05/19/2024 6:26 AM FREIGHT TEAM ASSOCIATE us Ilir Nunez MD CHEMISTRY ORDERABLES Final Resu lt [facility] [place] [address] * VALPROIC ACID (DEPAKENE) (05/19/2024 6:03 AM FREIGHT TEAM ASSOCIATE) VALPROIC ACID TOTAL 65 50 - 100 mcg/mL 05/19/2024 7:00 AM FREIGHT TEAM ASSOCIATE [facility] Blood Venipuncture / Unknown 05/19/2024 6:03 AM FREIGHT TEAM ASSOCIATE 05/19/2024 6:26 AM FREIGHT TEAM ASSOCIATE us Ilir Nunez MD CHEMISTRY ORDERABLES Final Resu lt Performing Organization Address [facility]/[place] Co de Phone Number [facility] [place] [address] * (ABNORMAL) LIPID PANEL (05/19/2024 6:03 AM FREIGHT TEAM ASSOCIATE) CHOLESTEROL 128 <200 mg/dL 05/19/2024 7:00 AM FREIGHT TEAM ASSOCIATE [facility] TRIGLYCERIDES 160(H) <150 mg/dL 05/19/2024 7:00 AM FREIGHT TEAM ASSOCIATE [facility] HDL CHOLESTEROL 31(L) >40 mg/dL 7:00 AM FREIGHT TEAM ASSOCIATE [facility] LDL 65 <130 mg/dL 05/19/2024 7:00 AM FREIGHT TEAM ASSOCIATE [facility] VLDL 32 10 - 50 mg/dL 05/19/2024 7:00 AM FREIGHT TEAM ASSOCIATE [facility] CHOL/HDL RATIO 4.1 0.0 - 4.4 05/19/2024 7:00 AM FREIGHT TEAM ASSOCIATE [facility] NON-HDL CHOLESTEROL 97 <130 mg/dL 05/19/2024 7:00 AM FREIGHT TEAM ASSOCIATE [facility] Blood Venipuncture / Unknown 05/19/2024 6:03 AM FREIGHT TEAM ASSOCIATE 05/19/2024 6:26 AM FREIGHT TEAM ASSOCIATE us Ilir Nunez MD CHEMISTRY ORDERABLES Final Resu lt Performing Organization Address City/[facility]/ZIP Co de Phone Number [facility] [address] [place] [address] * (ABNORMAL) CMP (COMPREHENSIVE METABOLIC PANEL) (05/19/2024 6:03 AM FREIGHT TEAM ASSOCIATE) SODIUM 143 136 - 145 mmol/L 05/19/2024 7:00 AM FREIGHT TEAM ASSOCIATE [facility] POTASSIUM 4.3 3.5 - 5.1 mmol/L 05/19/2024 7:00 AM [facility] CHLORIDE 111(H) 98 - 107 mmol/L 05/19/2024 7:00 AM [facility] CO2, VENOUS 25 22 - 30 mmol/L 05/19/2024 7:00 AM [facility] ANION GAP 11.3 <18.0 mmol/L 05/19/2024 7:00 AM [facility] GLUCOSE 80 70 - 99 mg/dL 05/19/2024 7:00 AM [facility] BUN 15 9 - 21 mg/dL 05/19/2024 7:00 AM [facility] CREATININE, BLOOD 1.18 0.70 - 1.30 mg/dL 05/19/2024 7:00 AM [facility] BUN/CREATININE RATIO 13 12 - 20 ratio 05/19/2024 7:00 AM [facility] TOTAL PROTEIN 6.6 6.0 - 8.0 g/dL 05/19/2024 7:00 AM [facility] ALBUMIN 3.7 3.5 - 5.0 g/dL 05/19/2024 7:00 AM [facility] A/G RATIO 1.3 1.0 - 2.2 05/19/2024 7:00 AM [facility] CALCIUM 8.9 8.7 - 10.5 mg/dL 05/19/2024 7:00 AM [facility] T BILI 0.3 0.2 - 1.2 mg/dL 05/19/2024 7:00 AM [facility] SGOT (AST) 25 6 - 42 U/L 05/19/2024 7:00 AM [facility] SGPT (ALT) 20 6 - 55 U/L 05/19/2024 7:00 AM [facility] ALKALINE PHOSPHATASE 33(L) 40 - 150 U/L 05/19/2024 7:00 AM [facility] GFR, ESTIMATED >60 >=60 05/19/2024 7:00 AM FREIGHT TEAM ASSOCIATE [facility] Comment: Creatinine Clearance is the preferred criteria for selecting drug dose adjustments in renally impaired patients. The GFR is provided as additional pertinent clinical information. GFR is reported in mL/min/1.73 sq m. Calculation based on the Chronic Kidney Disease Epidemiology Collaboration (CKD- EPI) equation refit without adjustment for race. GFR, EST. >60 >=60 025 7:00 AM FREIGHT TEAM ASSOCIATE [facility] GFR, EST. NONAFRICAN >60 >=60 05/19/2024 7:00 AM FREIGHT TEAM ASSOCIATE [facility] Blood Venipuncture / Unknown 05/19/2024 6:03 AM FREIGHT TEAM ASSOCIATE 05/19/2024 6:26 AM FREIGHT TEAM ASSOCIATE us Ilir Nunez MD CHEMISTRY ORDERABLES Final Resu lt [facility] [place] [address] documented in this encounter Visit Diagnoses Diagnosis Anemia, unspecified Schizophrenia, unspecified Bipolar disorder, unspecified (HCC) Bipolar disorder, unspecified Personality disorder, unspecified Mild intellectual disabilities Pervasive developmental disorder, unspecified Anxiety disorder, unspecified Hypothyroidism, unspecified documented in this encounter Care Teams Miner Assistant Relationship Specialty Start Date End Date Ilir Nunez MD [address] [place] [address] PCP - General Family Medicine 02/23/24 Nadya Harrell, PROJECT DRILLING ENGINEER, PERSONNEL QUALITY ASSURANCE AUDITOR [address], [facility] [address] [place] [address] Certified Nurse Practitioner 02/23/24 documented as of this encounter
--- OUTSIDE RECORDS SUMMARY | 2024-11-17 07:58 | XMS_ITS | Encounter Summary ---
Author Organization [facility] Address [address] [place] [address] Phone Care Team Providers Care Library Supervisor Name Role Phone Tyree Serna MD Primary Care Provider [phone] Ilir Nunez MD Primary Care Provider [phone] Nadya Harrell APRN, DOWEL PIN WORKER Unavailable Encounter Details Date Type Department Care Team (Late st Contact Info) Description 05/22/2022 Lab Requisition [facility] Laboratory Services 1 [place] [phone] Tyree Serna MD [address] [place] [address] [place] [address] Encounter for screening for COVID-19 Social History [...] Associated Diagnosis Comments SARS-COV-2 BY MOLECULAR Routine 05/22/2022 8:38 AM LIME KILN WORKER HELPER Encounter for screening for COVID-19 documented in this encounter Results * SARS-COV-2 BY MOLECULAR (05/22/2022 8:38 AM LIME KILN WORKER HELPER) SARSCOV2 NOT DETECTED (Referen ce Range for this test is Not Detected ) [facility] THERMOFISHER FAST DX 05/22/2022 8:07 PM LIME KILN WORKER HELPER [facility] Comment:This test was perfor med by a RT-PCR method. Other No Phlebotomy Charged / Unknown 05/22/2022 8:38 AM LIME KILN WORKER HELPER 05/22/2022 9:59 AM LIME KILN WORKER HELPER Narrative [facility] - 05/22/2022 8:07 PM LIME KILN WORKER HELPER Authorized Fact Sheets about this test for providers and patients are available at: https://www.fda.gov/medical-devices/qlybkacml-pwxxkbbuku-noblkzw-devices/emergen -us e-authorizations Result [facility] us Tyree Serna MD MICROBIOLOGY - GENERAL ORDERAB LES Final Result [facility] [address] [place] [address], documented in this encounter Visit Diagnoses Diagnosis Encounter for screening for COVID-19 documented in this encounter Additional Health Concerns Infection Onset Date Last Indicated Resolved Time COVID - 19 04/03/2022 06/19/2022 06/29/2022 12:1 6 AM CDT documented as of this encounter Care Teams Library Supervisor Relationship Specialty Start Date End Date Tyree Serna MD [address] [place] [address] [facility] [address] [place] [address] PCP - General Family Medicine 02/21/21 02/22/24 Ilir Nunez MD [address] [place] [address] PCP - General Family Medicine 02/23/24 Nadya Harrell, SPECIALTY FINISHING UTILITY PERSON, DOWEL PIN WORKER [address], [facility] [address] [place] [address] Certified Nurse Practitioner 02/23/24 documented as of this encounter
--- OUTSIDE RECORDS SUMMARY | 2024-11-17 07:58 | XMS_ITS | Encounter Summary ---
Author Organization [facility] Address [address] [place] [address] Phone Care Team Providers Care Cordage Sales Representative Name Role Phone Tyree Serna MD Primary Care Provider [phone] Ilir Nunez MD Primary Care Provider [phone] Nadya Harrell APRN, TRANSLATOR INTERPRETER Unavailable Encounter Details Date Type Department Care Team (Late st Contact Info) Description 04/17/2022 Lab Requisition [facility] Laboratory Services 1 [place] [phone] Tyree Serna MD [address] [place] [address] [address] [place], [place] [id number] Encounter for screening for COVID-19 Social History [...] Associated Diagnosis Comments SARS-COV-2 BY MOLECULAR Routine 04/17/2022 8:39 AM RETURNED GOODS RECEIVING CLERK Encounter for screening for COVID-19 documented in this encounter Results * SARS-COV-2 BY MOLECULAR (04/17/2022 8:39 AM RETURNED GOODS RECEIVING CLERK) SARSCOV2 NOT DETECTED (Referen ce Range for this test is Not Detected ) [facility] THERMOFISHER FAST DX 04/17/2022 10:53 PM RETURNED GOODS RECEIVING CLERK [facility] Comment:This test was perfor med by a RT-PCR method. Other Non-Phlebotomy Collection / Unknown 04/17/2022 8:39 AM RETURNED GOODS RECEIVING CLERK 04/17/2022 11:03 AM RETURNED GOODS RECEIVING CLERK Narrative [facility] - 04/17/2022 10:53 PM RETURNED GOODS RECEIVING CLERK Authorized Fact Sheets about this test for providers and patients are available at: https://www.fda.gov/medical-devices/johrlpzbu-krwniipjcj-nsnnvun-devices/emergen -us e-authorizations Result [facility] us Tyree Serna MD MICROBIOLOGY - GENERAL ORDERAB LES Final Result [facility] [address] [place] [address], documented in this encounter Visit Diagnoses Diagnosis Encounter for screening for COVID-19 documented in this encounter Additional Health Concerns Infection Onset Date Last Indicated Resolved Time COVID - 19 04/03/2022 06/19/2022 06/29/2022 12:1 6 AM CDT documented as of this encounter Care Teams Cordage Sales Representative Relationship Specialty Start Date End Date Tyree Serna MD [address] [place] [address] [facility] [address] [place] [address] PCP - General Family Medicine 02/21/21 02/22/24 Ilir Nunez MD [address] [place] [address] PCP - General Family Medicine 02/23/24 Nadya Harrell, VERTICA ARCHITECT, TRANSLATOR INTERPRETER [address], [facility] [address] [place] [address] Certified Nurse Practitioner 02/23/24 documented as of this encounter
--- OUTSIDE RECORDS SUMMARY | 2024-11-17 07:58 | XMS_ITS | Encounter Summary ---
Author Organization [facility] Address [address] [place] [address] Phone Care Team Providers Care Yarn Examiner Skeins Name Role Phone Tyree Serna MD Primary Care Provider Ilir Nunez MD Primary Care Provider [phone] Nadya Harrell APRN, POWER TECHNICIAN Unavailable Encounter Details Date Type Department Care Team (Late st Contact Info) Description 05/29/2022 Lab Requisition [facility] Laboratory Services [address] [place] [address] Tyree Serna MD [address] [place] [address] [address] [place], [place] [id number] Encounter for screening for COVID-19 Social History [...] Associated Diagnosis Comments SARS-COV-2 BY MOLECULAR Routine 05/29/2022 8:19 AM COLOR ADVISER Encounter for screening for COVID-19 documented in this encounter Results * SARS-COV-2 BY MOLECULAR (05/29/2022 8:19 AM COLOR ADVISER) SARSCOV2 NOT DETECTED (Referen ce Range for this test is Not Detected ) [facility] THERMOFISHER FAST DX 05/30/2022 12:34 AM COLOR ADVISER [facility] Comment:This test was perfor med by a RT-PCR method. Other Non-Phlebotomy Collection / Unknown 05/29/2022 8:19 AM COLOR ADVISER 05/29/2022 10:32 AM COLOR ADVISER Narrative [facility] - 05/30/2022 12:34 AM COLOR ADVISER Authorized Fact Sheets about this test for providers and patients are available at: https://www.fda.gov/medical-devices/gvzffuazm-wxhpoxfzum-pspytzu-devices/emergen -us e-authorizations Result [facility] us Tyree Serna MD MICROBIOLOGY - GENERAL ORDERAB LES Final Result [facility] [address] [place] [address], documented in this encounter Visit Diagnoses Diagnosis Encounter for screening for COVID-19 documented in this encounter Additional Health Concerns Infection Onset Date Last Indicated Resolved Time COVID - 19 04/03/2022 06/19/2022 06/29/2022 12:1 6 AM CDT documented as of this encounter Care Teams Yarn Examiner Skeins Relationship Specialty Start Date End Date Tyree Serna MD [address] [place] [address] [facility] [address] [place] [address] PCP - General Family Medicine 02/21/21 02/22/24 Ilir Nunez MD [address] [place] [address] PCP - General Family Medicine 02/23/24 Nadya Harrell, IRRIGATION TECHNICIAN, POWER TECHNICIAN [address], [facility] [address] [place] [address] Certified Nurse Practitioner 02/23/24 documented as of this encounter
--- OUTSIDE RECORDS SUMMARY | 2024-11-17 07:58 | XMS_ITS | Encounter Summary ---
Author Organization [facility] Address [address] [place] [address] Phone Care Team Providers Care Private Inquiry Agent Name Role Phone Tyree Serna MD Primary Care Provider [phone] Ilir Nunez MD Primary Care Provider [phone] Nadya Harrell APRN, MOUNTING INSPECTOR Unavailable [phone] Encounter Details Date Type Department Care Team (Late st Contact Info) Description 06/19/2022 Lab Requisition [facility] Laboratory Services 1 [place] [address] Tyree Serna MD [address] [place] [address] [address] [place], [place] [id number] Encounter for screening for COVID-19 Social History [...] on file documented as of this encounter Visit Diagnoses Diagnosis Encounter for screening for COVID-19 documented in this encounter Additional Health Concerns Infection Onset Date Last Indicated Resolved Time COVID - 19 04/03/2022 06/19/2022 06/29/2022 12:1 6 AM CDT documented as of this encounter Care Teams Private Inquiry Agent Relationship Specialty Start Date End Date Tyree Serna MD 4 [facility] [address] [place] [address] PCP - General Family Medicine 02/21/21 02/22/24 Ilir Nunez MD [address] [place] [address] PCP - General Family Medicine 02/23/24 Nadya Harrell, ORACLE ADF CONSULTANT, MOUNTING INSPECTOR [address], [facility] [address] [place] [address] Certified Nurse Practitioner 02/23/24 documented as of this encounter
--- OUTSIDE RECORDS SUMMARY | 2024-11-17 07:58 | XMS_ITS | Encounter Summary ---
Author Organization [facility] Address [address] [place] [address] Phone Care Team Providers Care Manager Of Learning Name Role Phone Jocy Welch MD Primary Care Provider [phone] Tyree Serna MD Primary Care Provider Jocy Welch MD Unavailable [phone] Ilir Nunez MD Primary Care Provider [phone] Nadya Harrell APRN, APPOINTMENT SPECIALIST Unavailable Encounter Details Date Type Department Care Team (Late st Contact Info) Description 02/14/2021 Lab Requisition [facility] Laboratory Services 1 [place] [id number] Tyree Serna MD [address] [place] [address] [address] [place] [address] Encounter for screening for COVID-19 [...] Associated Diagnosis Comments SARS-COV-2 BY MOLECULAR Routine 02/14/2021 8:22 AM SOFTWARE INTEGRATOR Encounter for screening for COVID-19 documented in this encounter Results * SARS-COV-2 BY MOLECULAR (02/14/2021 8:22 AM SOFTWARE INTEGRATOR) SARSCOV2 NOT DETECTED (Referen ce Range for this test is Not Detected ) [facility] THERMOFISHER FAST DX 02/15/2021 7:26 AM SOFTWARE INTEGRATOR [facility] Comment:This test was perfor med by a RT-PCR method. Other Non-Phlebotomy Collection / Unknown 02/14/2021 8:22 AM SOFTWARE INTEGRATOR 02/14/2021 10:56 AM SOFTWARE INTEGRATOR Narrative [facility] - 02/15/2021 7:26 AM SOFTWARE INTEGRATOR Authorized Fact Sheets about this test for providers and patients are available at: https://www.fda.gov/medical-devices/smgxonjqn-wkdfzoryra-hfliauk-devices/emergen -us e-authorizations us Tyree Serna MD MICROBIOLOGY - GENERAL ORDERAB LES Final Result Performing Organization Address City/State/[facility] Co de Phone Number [facility] [address] [place] [phone], documented in this encounter Visit Diagnoses Diagnosis Encounter for screening for COVID-19 documented in this encounter Additional Health Concerns Infection Onset Date Last Indicated Resolved Time COVID - 19 12/27/2020 02/28/2021 03/06/2021 12:1 6 AM SOFTWARE INTEGRATOR COVID - 19 02/21/2021 05/30/2021 05/31/2021 11:1 0 AM SOFTWARE INTEGRATOR COVID - 19 Confirmed 05/30/2021 05/30/2021 022 12:18 AM CDT COVID - 19 08/29/2021 02/13/2022 02/23/2022 12:1 6 AM SOFTWARE INTEGRATOR COVID - 19 04/03/2022 06/19/2022 06/29/2022 12:1 6 AM CDT documented as of this encounter Care Teams Manager Of Learning Relationship Specialty Start Date End Date Jocy Welch MD PCP - General Family Medicine 10/19/15 02/20/21 Tyree Serna MD 4 [facility] [address] [place] [address] PCP - General Family Medicine 02/21/21 02/22/24 Ilir Nunez MD [address] [place] [address] PCP - General Family Medicine 02/23/24 Jocy Welch MD Family Medicine 02/21/21 04/04/21 Nadya Harrell, LOGGER ALL ROUND, APPOINTMENT SPECIALIST [address], [facility] [address] [place] [address] Certified Nurse Practitioner 02/23/24 documented as of this encounter
--- OUTSIDE RECORDS SUMMARY | 2024-11-17 07:58 | XMS_ITS | Encounter Summary ---
Author Organization [facility] Address [address] [place] [address] Phone Care Team Providers Care Parts Cataloger Name Role Phone Tyree Serna MD Primary Care Provider Jocy Welch MD Unavailable Ilir Nunez MD Primary Care Provider Nadya Harrell APRN, AUTHOR AGENT Unavailable Encounter Details Date Type Department Care Team (Late st Contact Info) Description 02/21/2021 Lab Requisition [facility] Laboratory Services 1 [place] [address] Tyree Serna MD [address] [place] [address] [address] [place] [address] Encounter for screening for COVID-19 [...] Associated Diagnosis Comments SARS-COV-2 BY MOLECULAR Routine 02/21/2021 8:26 AM DATA TECHNICAL LEAD Encounter for screening for COVID-19 documented in this encounter Results * SARS-COV-2 BY MOLECULAR (02/21/2021 8:26 AM DATA TECHNICAL LEAD) SARSCOV2 NOT DETECTED (Referen ce Range for this test is Not Detected ) [facility] THERMOFISHER FAST DX 02/22/2021 8:54 AM DATA TECHNICAL LEAD [facility] Comment:This test was perfor med by a RT-PCR method. Other Non-Phlebotomy Collection / Unknown 02/21/2021 8:26 AM DATA TECHNICAL LEAD 02/21/2021 11:04 AM DATA TECHNICAL LEAD Narrative [facility] - 02/22/2021 8:54 AM DATA TECHNICAL LEAD Authorized Fact Sheets about this test for providers and patients are available at: https://www.fda.gov/medical-devices/dwgdpdqwv-wydcigyrpr-qohfyet-devices/emergen -us e-authorizations us Tyree Serna MD MICROBIOLOGY - GENERAL ORDERAB LES Final Result [facility] [address] [place] [address], documented in this encounter Visit Diagnoses Diagnosis Encounter for screening for COVID-19 documented in this encounter Additional Health Concerns Infection Onset Date Last Indicated Resolved Time COVID - 19 12/27/2020 02/28/2021 03/06/2021 12:1 6 AM DATA TECHNICAL LEAD COVID - 19 02/21/2021 05/30/2021 05/31/2021 11:1 0 AM DATA TECHNICAL LEAD COVID - 19 Confirmed 05/30/2021 05/30/2021 022 12:18 AM CDT COVID - 19 08/29/2021 02/13/2022 02/23/2022 12:1 6 AM DATA TECHNICAL LEAD COVID - 19 04/03/2022 06/19/2022 06/29/2022 12:1 6 AM CDT documented as of this encounter Care Teams Parts Cataloger Relationship Specialty Start Date End Date Tyree Serna MD [address] [place] [address] [address] [place] [address] PCP - General Family Medicine 02/21/21 02/22/24 [place] [address] PCP - General Family Medicine 02/23/24 Jocy Welch MD 4 [facility] [address] [place] [address] Family Medicine 02/21/21 04/04/21 Nadya Harrell, ENGINEERING DOCUMENTATION SPECIALIST, AUTHOR AGENT [address], [facility] [address] [place] [address] Certified Nurse Practitioner 02/23/24 documented as of this encounter
--- OUTSIDE RECORDS SUMMARY | 2024-11-17 07:58 | XMS_ITS | Encounter Summary ---
Author Organization [facility] Address [address] [place] [address] Phone Care Team Providers Care Handhole Machine Operator Name Role Phone Tyree Serna MD Primary Care Provider [phone] Ilir Nunez MD Primary Care Provider [phone] Nadya Harrell APRN, LEGAL STENOGRAPHER Unavailable Encounter Details Date Type Department Care Team (Late st Contact Info) Description 04/03/2022 Lab Requisition [facility] Laboratory Services 1 [place] [address] Tyree Serna MD [address] [place] [address] [address] [place], [place] [id number] Encounter for screening for COVID-19 Social History [...] Associated Diagnosis Comments SARS-COV-2 BY MOLECULAR Routine 04/03/2022 8:09 AM HEMODIALYSIS PATIENT CARE SPECIALIST Encounter for screening for COVID-19 documented in this encounter Results * SARS-COV-2 BY MOLECULAR (04/03/2022 8:09 AM HEMODIALYSIS PATIENT CARE SPECIALIST) SARSCOV2 NOT DETECTED (Referen ce Range for this test is Not Detected ) [facility] THERMOFISHER FAST DX 04/04/2022 12:33 AM HEMODIALYSIS PATIENT CARE SPECIALIST [facility] Comment:This test was perfor med by a RT-PCR method. Other Non-Phlebotomy Collection / Unknown 04/03/2022 8:09 AM HEMODIALYSIS PATIENT CARE SPECIALIST 04/03/2022 2:14 PM HEMODIALYSIS PATIENT CARE SPECIALIST Narrative [facility] - 04/04/2022 12:33 AM HEMODIALYSIS PATIENT CARE SPECIALIST Authorized Fact Sheets about this test for providers and patients are available at: https://www.fda.gov/medical-devices/txeympiqn-qwgtfyfroj-thdtifg-devices/emergen -us e-authorizations us Tyree Serna MD MICROBIOLOGY - GENERAL ORDERAB LES Final Result [facility] [address] [place] [address], documented in this encounter Visit Diagnoses Diagnosis Encounter for screening for COVID-19 documented in this encounter Additional Health Concerns Infection Onset Date Last Indicated Resolved Time COVID - 19 04/03/2022 06/19/2022 06/29/2022 12:1 6 AM CDT documented as of this encounter Care Teams Handhole Machine Operator Relationship Specialty Start Date End Date Tyree Serna MD [address] [place] [address] [facility] [address] [place] [address] PCP - General Family Medicine 02/21/21 02/22/24 Ilir Nunez MD [address] [place] [address] PCP - General Family Medicine 02/23/24 Nadya Harrell, EDITORIAL WRITER, LEGAL STENOGRAPHER [address], [facility] [address] [place] [address] Certified Nurse Practitioner 02/23/24 documented as of this encounter
--- OUTSIDE RECORDS SUMMARY | 2024-11-17 07:58 | XMS_ITS | Encounter Summary ---
Author Organization [facility] Address [address] [place] [address] Phone Care Team Providers Care Insecticide Sprayer Name Role Phone Josie Templeton MD Primary Care Provider [phone] Nadya Harrell NP Primary Care Provider [phone] Encounter Details Date Type Department Care Team (Late st Contact Info) Description 07/31/2022 Orders Only [facility] [address] [place] [address] Scanning, Provider Social History Tobacco Use Types Packs/Day Years Used Date Smoking Tobacco: Never Smokeless Tobacco: Never PHQ-2 Answer Date Recorded PHQ-2 Total Score (If total score is 3 or more points, staff should administer the PHQ-9) 0 01/29/2022 Sex and Gender Information Value Date Recorded Sex Assigned at Not on file Legal Sex Male 9:29 AM OUTBOUND SALES REPRESENTATIVE Gender Identity Not on file Sexual Orientation Not on file documented as of this encounter Plan of Treatment Not on file documented as of this encounter Procedures Procedure Name Priority Date/Time Associated Diagnosis Comments SCAN - LABS 07/31/2022 documented in this encounter Results * SCAN - LABS (07/31/2022) us Provider Scanning Final Result documented in this encounter Visit Diagnoses Not on filedocumented in this encounter Care Teams Insecticide Sprayer Relationship Specialty Start Date End Date Josie Templeton MD PCP - General Family Practice 01/29/22 11/26/23 Nadya Harrell NP [address] [place] [address] PCP - General Family Medicine 11/27/23 documented as of this encounter
--- OUTSIDE RECORDS SUMMARY | 2024-11-17 07:58 | XMS_ITS | Encounter Summary ---
Author Organization [facility] Address [address] [place] [address] Phone Care Team Providers Care Brazer Assembler Name Role Phone Tyree Serna MD Primary Care Provider [phone] Ilir Nunez MD Primary Care Provider Nadya Harrell APRN, A&P MECHANIC Unavailable [phone] Encounter Details Date Type Department Care Team (Late st Contact Info) Description 11/28/2021 Lab Requisition [facility] Laboratory Services 1 [place] [address] Tyree Serna MD [address] [place] [address] [address] [place], [place] [id number] Encounter for screening for COVID-19 Social History [...] Associated Diagnosis Comments SARS-COV-2 BY MOLECULAR Routine 11/28/2021 7:51 AM CDT Encounter for screening for COVID-19 documented in this encounter Results * SARS-COV-2 BY MOLECULAR (11/28/2021 7:51 AM CDT) SARSCOV2 NOT DETECTED (Referen ce Range for this test is Not Detected ) [facility] THERMOFISHER FAST DX 11/29/2021 8:46 AM CDT [facility] Comment:This test was perfor med by a RT-PCR method. Other Non-Phlebotomy Collection / Unknown 11/28/2021 7:51 AM CDT 11/28/2021 11:44 AM CDT Narrative [facility] - 11/29/2021 8:46 AM CDT Authorized Fact Sheets about this test for providers and patients are available at: https://www.fda.gov/medical-devices/oviugpsuz-hophpkmdec-yktpebh-devices/emergen -us e-authorizations us Tyree Serna MD MICROBIOLOGY - GENERAL ORDERAB LES Final Result [facility] [address] [place] [address], documented in this encounter Visit Diagnoses Diagnosis Encounter for screening for COVID-19 documented in this encounter Additional Health Concerns Infection Onset Date Last Indicated Resolved Time COVID - 19 08/29/2021 02/13/2022 02/23/2022 12:1 6 AM COLLECTIONS AND ARCHIVES DIRECTOR COVID - 19 04/03/2022 06/19/2022 06/29/2022 12:1 6 AM CDT documented as of this encounter Care Teams Brazer Assembler Relationship Specialty Start Date End Date Tyree Serna MD [address] [place] [address] [address] [place] [address] PCP - General Family Medicine 02/21/21 02/22/24 Ilir Nunez MD [address] [place] [address] PCP - General Family Medicine 02/23/24 Nadya Harrell, SIZING END BANDER, A&P MECHANIC [address], [address] [address] Certified Nurse Practitioner 02/23/24 documented as of this encounter
--- OUTSIDE RECORDS SUMMARY | 2024-11-17 07:58 | XMS_ITS | Encounter Summary ---
Author Organization [facility] Address [address] [place] [address] Phone Care Team Providers Care Coat Agent Name Role Phone Jocy Welch MD Primary Care Provider Tyree Serna MD Primary Care Provider Jocy Welch MD Unavailable [phone] Ilir Nunez MD Primary Care Provider [phone] Nadya Harrell APRN, CONTROL TOWER OPERATOR Unavailable [phone] Encounter Details Date Type Department Care Team (Late st Contact Info) Description 02/07/2021 Lab Requisition [facility] Laboratory Services 1 [place] [id number] Tyree Serna MD [address] [place] [address] [address] [place] [address] Social History Tobacco Use Types [...] Associated Diagnosis Comments SARS-COV-2 BY MOLECULAR Routine 02/07/2021 8:04 AM CDT documented in this encounter Results * SARS-COV-2 BY MOLECULAR (02/07/2021 8:04 AM CDT) SARSCOV2 NOT DETECTED (Referen ce Range for this test is Not Detected ) [facility] THERMOFISHER FAST DX 02/08/2021 12:01 AM CDT [facility] Comment:This test was perfor med by a RT-PCR method. Other No Phlebotomy Charged / Unknown 02/07/2021 8:04 AM CDT 02/07/2021 11:15 AM CDT Narrative [facility] - 02/08/2021 12:01 AM CDT Authorized Fact Sheets about this test for providers and patients are available at: https://www.fda.gov/medical-devices/mogutrdct-lvhztbujnw-ggvejel-devices/emergen -us e-authorizations us Tyree Serna MD MICROBIOLOGY - GENERAL ORDERAB LES Final Result [facility] [address] [place] [address], documented in this encounter Visit Diagnoses Not on filedocumented in this encounter Additional Health Concerns Infection Onset Date Last Indicated Resolved Time COVID - 19 12/27/2020 02/28/2021 03/06/2021 12:1 6 AM COSMETICS AND TOILETRIES SALESPERSON COVID - 19 02/21/2021 05/30/2021 05/31/2021 11:1 0 AM COSMETICS AND TOILETRIES SALESPERSON COVID - 19 Confirmed 05/30/2021 05/30/202106/19/ 022 12:18 AM CDT COVID - 19 08/29/2021 02/13/2022 02/23/2022 12:1 6 AM COSMETICS AND TOILETRIES SALESPERSON COVID - 19 04/03/2022 06/19/2022 06/29/2022 12:1 6 AM CDT documented as of this encounter Care Teams Coat Agent Relationship Specialty Start Date End Date Jocy Welch MD PCP - General Family Medicine 10/19/15 02/20/21 Tyree Serna MD [address] [place] [address] [address] [place] [address] PCP - General Family Medicine 02/21/21 02/22/24 Ilir Nunez MD [address] [facility] [place] [address] PCP - General Family Medicine 02/23/24 Jocy Welch MD Family Medicine 02/21/21 04/04/21 Nadya Harrell, MALLET AND DIE CUTTER, CONTROL TOWER OPERATOR [address], [facility] [address] [place] [address] Certified Nurse Practitioner 02/23/24 documented as of this encounter
--- OUTSIDE RECORDS SUMMARY | 2024-11-17 07:58 | XMS_ITS | Encounter Summary ---
Author Organization [facility] Address [address] [place] [address] Phone Care Team Providers Care Resp Therapist Name Role Phone Tyree Serna MD Primary Care Provider [phone] Ilir Nunez MD Primary Care Provider [phone] Nadya Harrell APRN, LUBRICATING ENGINEER Unavailable Encounter Details Date Type Department Care Team (Late st Contact Info) Description 11/21/2021 Lab Requisition [facility] Laboratory Services [address] [place] [address] Tyree Serna MD [address] [place] [address] [address] [place], [place] [id number] Encounter for screening for COVID-19 Social History [...] Associated Diagnosis Comments SARS-COV-2 BY MOLECULAR Routine 11/21/2021 8:23 AM CDT documented in this encounter Results * SARS-COV-2 BY MOLECULAR (11/21/2021 8:23 AM CDT) SARSCOV2 NOT DETECTED (Referen ce Range for this test is Not Detected ) [facility] THERMOFISHER FAST DX 11/22/2021 8:15 AM CDT [facility] Comment:This test was perfor med by a RT-PCR method. Other Non-Phlebotomy Collection / Unknown 11/21/2021 8:23 AM CDT 11/21/2021 1:09 PM CDT Narrative [facility] - 11/22/2021 8:15 AM CDT Authorized Fact Sheets about this test for providers and patients are available at: https://www.fda.gov/medical-devices/jvjcttbdh-kaenjaiape-favmigq-devices/emergen -us e-authorizations us Tyree Serna MD MICROBIOLOGY - GENERAL ORDERAB LES Final Result [facility] [address] [place] [address], documented in this encounter Visit Diagnoses Diagnosis Encounter for screening for COVID-19 documented in this encounter Additional Health Concerns Infection Onset Date Last Indicated Resolved Time COVID - 19 08/29/2021 02/13/2022 02/23/2022 12:1 6 AM PARAGLIDING INSTRUCTOR COVID - 19 04/03/2022 06/19/2022 06/29/2022 12:1 6 AM CDT documented as of this encounter Care Teams Resp Therapist Relationship Specialty Start Date End Date Tyree Serna MD [address] [place] [address] [address] [place] [address] PCP - General Family Medicine 02/21/21 02/22/24 Ilir Nunez MD [address] [place] [address] PCP - General Family Medicine 02/23/24 Nadya Harrell, AUTOMOTIVE ELECTRICAL FITTER, LUBRICATING ENGINEER [address], [facility] [address] [place] [address] Certified Nurse Practitioner 02/23/24 documented as of this encounter
--- OUTSIDE RECORDS SUMMARY | 2024-11-17 07:58 | XMS_ITS | Encounter Summary ---
Author Organization [facility] Address [address] [place] [address] Phone Care Team Providers Care Flex O Writer Operator Name Role Phone Tyree Serna MD Primary Care Provider [phone] Ilir Nunez MD Primary Care Provider [phone] Nadya Harrell APRN, DESIGN ENGINEER PRODUCTS Unavailable [phone] Encounter Details Date Type Department Care Team (Late st Contact Info) Description 08/29/2021 Lab Requisition [facility] [address] [place] [address] Tyree Serna MD [address] [place] [address] [address] [place], [place] [id number] Encounter for screening for COVID-19 Social History [...] Associated Diagnosis Comments SARS-COV-2 BY MOLECULAR Routine 08/29/2021 8:37 AM CDT Encounter for screening for COVID-19 documented in this encounter Results * SARS-COV-2 BY MOLECULAR (08/29/2021 8:37 AM CDT) SARSCOV2 NOT DETECTED (Referen ce Range for this test is Not Detected ) [facility] THERMOFISHER FAST DX 08/30/2021 2:01 PM CDT [facility] Comment:This test was perfor med by a RT-PCR method. Other Non-Phlebotomy Collection / Unknown 08/29/2021 8:37 AM CDT 08/29/2021 10:07 AM CDT Narrative [facility] - 08/30/2021 2:01 PM CDT Authorized Fact Sheets about this test for providers and patients are available at: https://www.fda.gov/medical-devices/wcljxirwc-bqyxsllquk-nikhxiv-devices/emergen -us e-authorizations us Tyree Serna MD MICROBIOLOGY - GENERAL ORDERAB LES Final Result [facility] [address] [place] [address], documented in this encounter Visit Diagnoses Diagnosis Encounter for screening for COVID-19 documented in this encounter Additional Health Concerns Infection Onset Date Last Indicated Resolved Time COVID - 19 08/29/2021 02/13/2022 02/23/2022 12:1 6 AM DRYING AND WINDING SUPERVISOR COVID - 19 04/03/2022 06/19/2022 06/29/2022 12:1 6 AM CDT documented as of this encounter Care Teams Flex O Writer Operator Relationship Specialty Start Date End Date Tyree Serna MD [address] [place] [address] [address] [place] [address] PCP - General Family Medicine 02/21/21 02/22/24 Ilir Nunez MD [address] [place] [address] PCP - General Family Medicine 02/23/24 Nadya Harrell, RAILWAY SIGNAL OPERATOR, DESIGN ENGINEER PRODUCTS [address], [facility] [address] [place] [address] Certified Nurse Practitioner 02/23/24 documented as of this encounter
--- OUTSIDE RECORDS SUMMARY | 2024-11-17 07:58 | XMS_ITS | Encounter Summary ---
Author Organization [facility] Address [address] [place] [address] Phone Care Team Providers Care Retail Maintenance Technician Name Role Phone Tyree Serna MD Primary Care Provider [phone] Jocy Welch MD Unavailable Ilir Nunez MD Primary Care Provider [phone] Nadya Harrell APRN, BOX TOE FLANGER STITCHDOWNS Unavailable [phone] Encounter Details Date Type Department Care Team (Late st Contact Info) Description 04/04/2021 Lab Requisition [facility] Services 1 [place] [address] Tyree Serna MD [address] [place] [address] [address] [place], [place] [address] Encounter for screening for COVID-19 Social History [...] Associated Diagnosis Comments SARS-COV-2 BY MOLECULAR Routine 04/04/2021 8:21 AM SEWAGE PLANT OPERATOR Encounter for screening for COVID-19 documented in this encounter Results * SARS-COV-2 BY MOLECULAR (04/04/2021 8:21 AM SEWAGE PLANT OPERATOR) SARSCOV2 NOT DETECTED (Referen ce Range for this test is Not Detected ) [facility] THERMOFISHER FAST DX 04/07/2021 11:18 AM SEWAGE PLANT OPERATOR [facility] Comment:This test was perfor med by a RT-PCR method. Other No Phlebotomy Charged / Unknown 04/04/2021 8:21 AM SEWAGE PLANT OPERATOR 04/04/2021 11:39 AM SEWAGE PLANT OPERATOR Narrative [facility] - 04/07/2021 11:18 AM SEWAGE PLANT OPERATOR Authorized Fact Sheets about this test for providers and patients are available at: https://www.fda.gov/medical-devices/mszaodqnc-nokgnsnhxw-zwlxbnw-devices/emergen -us e-authorizations us Tyree Serna MD MICROBIOLOGY - GENERAL ORDERAB LES Final Result [facility] [address] [place] [address], documented in this encounter Visit Diagnoses Diagnosis Encounter for screening for COVID-19 documented in this encounter Additional Health Concerns Infection Onset Date Last Indicated Resolved Time COVID - 19 02/21/2021 05/30/2021 05/31/2021 11:1 0 AM SEWAGE PLANT OPERATOR COVID - 19 Confirmed 05/30/2021 05/30/2021 022 12:18 AM CDT COVID - 19 08/29/2021 02/13/2022 02/23/2022 12:1 6 AM SEWAGE PLANT OPERATOR COVID - 19 04/03/2022 06/19/2022 06/29/2022 12:1 6 AM CDT documented as of this encounter Care Teams Retail Maintenance Technician Relationship Specialty Start Date End Date Tyree Serna MD [address] [facility] [address] [place] [address] PCP - General Family Medicine 02/21/21 02/22/24 [place] [address] PCP - General Family Medicine 02/23/24 Jocy Welch MD [address] [facility] [address] [place] [address] Family Medicine 02/21/21 04/04/21 Nadya Harrell, PBX OPERATOR, BOX TOE FLANGER STITCHDOWNS [address], [facility] [address] [place] [address] Certified Nurse Practitioner 02/23/24 documented as of this encounter
--- OUTSIDE RECORDS SUMMARY | 2024-11-17 07:58 | XMS_ITS | Encounter Summary ---
Author Organization [facility] Address [address] [place] [address] Phone Care Team Providers Care Manager Interface Name Role Phone Tyree Serna MD Primary Care Provider [phone] Ilir Nunez MD Primary Care Provider [phone] Nadya Harrell APRN, INDUSTRIAL MECHANIC Unavailable Encounter Details Date Type Department Care Team (Late st Contact Info) Description 05/16/2021 Lab Requisition [facility] Services 1 [place] [address] Tyree Serna MD [address] [place] [address] [address] [place], [place] [id number] Encounter for screening for COVID-19 Social History [...] Associated Diagnosis Comments SARS-COV-2 BY MOLECULAR Routine 05/16/2021 7:36 AM NURSE COMPANION Encounter for screening for COVID-19 documented in this encounter Results * SARS-COV-2 BY MOLECULAR (05/16/2021 7:36 AM NURSE COMPANION) SARSCOV2 NOT DETECTED (Referen ce Range for this test is Not Detected ) [facility] THERMOFISHER FAST DX 05/16/2021 11:48 PM NURSE COMPANION [facility] Comment:This test was perfor med by a RT-PCR method. Other Non-Phlebotomy Collection / Unknown 05/16/2021 7:36 AM NURSE COMPANION 05/16/2021 10:36 AM NURSE COMPANION Narrative [facility] - 05/16/2021 11:48 PM NURSE COMPANION Authorized Fact Sheets about this test for providers and patients are available at: https://www.fda.gov/medical-devices/fngoufueo-dumazgihxu-ysubqnt-devices/emergen -us e-authorizations us Tyree Serna MD MICROBIOLOGY - GENERAL ORDERAB LES Final Result [facility] [address] [place] [address], documented in this encounter Visit Diagnoses Diagnosis Encounter for screening for COVID-19 documented in this encounter Additional Health Concerns Infection Onset Date Last Indicated Resolved Time COVID - 19 02/21/2021 05/30/2021 05/31/2021 11:1 0 AM NURSE COMPANION COVID - 19 Confirmed 05/30/2021 05/30/2021 022 12:18 AM CDT COVID - 19 08/29/2021 02/13/2022 02/23/2022 12:1 6 AM NURSE COMPANION COVID - 19 04/03/2022 06/19/2022 06/29/2022 12:1 6 AM CDT documented as of this encounter Care Teams Manager Interface Relationship Specialty Start Date End Date Tyree Serna MD [address] [place] [address] [address] [place] [address] PCP - General Family Medicine 02/21/21 02/22/24 [place] [address] PCP - General Family Medicine 02/23/24 Nadya Harrell, ALYX, INDUSTRIAL MECHANIC [address] , [facility] [address] [place] [address] Certified Nurse Practitioner 02/23/24 documented as of this encounter
--- OUTSIDE RECORDS SUMMARY | 2024-11-17 07:58 | XMS_ITS | Encounter Summary ---
Author Organization [facility] Address [address] [place] [address] Phone Care Team Providers Care Size Roller Operator Name Role Phone Tyree Serna MD Primary Care Provider Jocy Welch MD Unavailable Ilir Nunez MD Primary Care Provider [phone] Nadya Harrell APRN, CLERICAL STOCK INSPECTOR Unavailable [phone] Encounter Details Date Type Department Care Team (Late st Contact Info) Description 03/21/2021 Lab Requisition [facility] Services 1 [place] [address] Tyree Serna MD [address] [place] [address] [address] [place] [address] Encounter for screening for COVID-19 [...] Associated Diagnosis Comments SARS-COV-2 BY MOLECULAR Routine 03/21/2021 8:41 AM COMMERCIAL LITIGATION ASSOCIATE Encounter for screening for COVID-19 documented in this encounter Results * SARS-COV-2 BY MOLECULAR (03/21/2021 8:41 AM COMMERCIAL LITIGATION ASSOCIATE) SARSCOV2 NOT DETECTED (Referen ce Range for this test is Not Detected ) [facility] THERMOFISHER FAST DX 03/23/2021 8:04 AM COMMERCIAL LITIGATION ASSOCIATE [facility] Comment:This test was perfor med by a RT-PCR method. Other No Phlebotomy Charged / Unknown 03/21/2021 8:41 AM COMMERCIAL LITIGATION ASSOCIATE 03/21/2021 11:34 AM COMMERCIAL LITIGATION ASSOCIATE Narrative [facility] - 03/23/2021 8:04 AM COMMERCIAL LITIGATION ASSOCIATE Authorized Fact Sheets about this test for providers and patients are available at: https://www.fda.gov/medical-devices/vstsrpbbi-vlenisvllt-nwbeoap-devices/emergen -us e-authorizations us Tyree Serna MD MICROBIOLOGY - GENERAL ORDERAB LES Final Result [facility] [address] [place] [address], documented in this encounter Visit Diagnoses Diagnosis Encounter for screening for COVID-19 documented in this encounter Additional Health Concerns Infection Onset Date Last Indicated Resolved Time COVID - 19 02/21/2021 05/30/2021 05/31/2021 11:1 0 AM COMMERCIAL LITIGATION ASSOCIATE COVID - 19 Confirmed 05/30/2021 05/30/2021 022 12:18 AM CDT COVID - 19 08/29/2021 02/13/2022 02/23/2022 12:1 6 AM COMMERCIAL LITIGATION ASSOCIATE COVID - 19 04/03/2022 06/19/2022 06/29/2022 12:1 6 AM CDT documented as of this encounter Care Teams Size Roller Operator Relationship Specialty Start Date End Date Tyree Serna MD [address] [facility] [address] [place] [address] PCP - General Family Medicine 02/21/21 02/22/24 [place] [address] PCP - General Family Medicine 02/23/24 Jocy Welch MD [address] [facility] [address] [place] [address] Family Medicine 02/21/21 04/04/21 Nadya Harrell, AUTOMOTIVE GENERAL MANAGER, CLERICAL STOCK INSPECTOR [address], [facility] [address] [place] [address] Certified Nurse Practitioner 02/23/24 documented as of this encounter
--- OUTSIDE RECORDS SUMMARY | 2024-11-17 07:58 | XMS_ITS | Encounter Summary ---
Author Organization [facility] Address [address] [place] [address] Phone Care Team Providers Care Air Pollution Control Engineer Name Role Phone Tyree Serna MD Primary Care Provider [phone] Ilir Nunez MD Primary Care Provider [phone] Nadya Harrell APRN, BEHAVIORAL TECHNICIAN Unavailable [phone] Encounter Details Date Type Department Care Team (Late st Contact Info) Description 05/02/2021 Lab Requisition [facility] Services 1 [place] [address] Tyree Serna MD [address] [place] [address] [place] [address] Encounter for screening for COVID-19 [...] Associated Diagnosis Comments SARS-COV-2 BY MOLECULAR Routine 05/02/2021 7:50 AM WAREHOUSE PACKER Encounter for screening for COVID-19 documented in this encounter Results * SARS-COV-2 BY MOLECULAR (05/02/2021 7:50 AM WAREHOUSE PACKER) SARSCOV2 NOT DETECTED (Referen ce Range for this test is Not Detected ) [facility] THERMOFISHER FAST DX 05/03/2021 9:00 AM WAREHOUSE PACKER [facility] Comment:This test was perfor med by a RT-PCR method. Other Non-Phlebotomy Collection / Unknown 05/02/2021 7:50 AM WAREHOUSE PACKER 05/02/2021 11:18 AM WAREHOUSE PACKER Narrative [facility] - 05/03/2021 9:00 AM WAREHOUSE PACKER Authorized Fact Sheets about this test for providers and patients are available at: https://www.fda.gov/medical-devices/qynvrrlfv-msilcmrble-jbrvkaq-devices/emergen -us e-authorizations us Tyree Serna MD MICROBIOLOGY - GENERAL ORDERAB LES Final Result [facility] [address] [place] [address], documented in this encounter Visit Diagnoses Diagnosis Encounter for screening for COVID-19 documented in this encounter Additional Health Concerns Infection Onset Date Last Indicated Resolved Time COVID - 19 02/21/2021 05/30/2021 05/31/2021 11:1 0 AM WAREHOUSE PACKER COVID - 19 Confirmed 05/30/2021 05/30/2021 022 12:18 AM CDT COVID - 19 08/29/2021 02/13/2022 02/23/2022 12:1 6 AM WAREHOUSE PACKER COVID - 19 04/03/2022 06/19/2022 06/29/2022 12:1 6 AM CDT documented as of this encounter Care Teams Air Pollution Control Engineer Relationship Specialty Start Date End Date Tyree Serna MD [address] [place] [address] [address] [place] [address] PCP - General Family Medicine 02/21/21 02/22/24 [place] [address] PCP - General Family Medicine 02/23/24 Nadya Harrell, ALYX, BEHAVIORAL TECHNICIAN [address] , [facility] [address] [place] [address] Certified Nurse Practitioner 02/23/24 documented as of this encounter
--- OUTSIDE RECORDS SUMMARY | 2024-11-17 07:58 | XMS_ITS | Encounter Summary ---
Author Organization [facility] Address [address] [place] [address] Phone Care Team Providers Care Tank Truck Engine Mechanic Name Role Phone Tyree Srena MD Primary Care Provider [phone] Ilir Nunez MD Primary Care Provider [phone] Nadya Harrell APRN, TELEPHOTO ENGINEER Unavailable Encounter Details Date Type Department Care Team (Late st Contact Info) Description 04/25/2021 Lab Requisition [facility] Laboratory Services 1 [place] [address] Tyree Serna MD [address] [place] [address] [place] [address] Encounter for screening for COVID-19 [...] Associated Diagnosis Comments SARS-COV-2 BY MOLECULAR Routine 04/25/2021 7:28 AM RUBBER GASKET INSPECTOR TRIMMER Encounter for screening for COVID-19 documented in this encounter Results * SARS-COV-2 BY MOLECULAR (04/25/2021 7:28 AM RUBBER GASKET INSPECTOR TRIMMER) SARSCOV2 NOT DETECTED (Referen ce Range for this test is Not Detected ) [facility] THERMOFISHER FAST DX 04/27/2021 9:45 AM RUBBER GASKET INSPECTOR TRIMMER [facility] Comment:This test was perfor med by a RT-PCR method. Other Non-Phlebotomy Collection / Unknown 04/25/2021 7:28 AM RUBBER GASKET INSPECTOR TRIMMER 04/25/2021 12:51 PM RUBBER GASKET INSPECTOR TRIMMER Narrative [facility] - 04/27/2021 9:45 AM RUBBER GASKET INSPECTOR TRIMMER Authorized Fact Sheets about this test for providers and patients are available at: https://www.fda.gov/medical-devices/knusfvepp-ezvmiwnwhk-zpevtur-devices/emergen -us e-authorizations us Tyree Serna MD MICROBIOLOGY - GENERAL ORDERAB LES Final Result [facility] [address] [place] [address], documented in this encounter Visit Diagnoses Diagnosis Encounter for screening for COVID-19 documented in this encounter Additional Health Concerns Infection Onset Date Last Indicated Resolved Time COVID - 19 02/21/2021 05/30/2021 05/31/2021 11:1 0 AM RUBBER GASKET INSPECTOR TRIMMER COVID - 19 Confirmed 05/30/2021 05/30/2021 022 12:18 AM CDT COVID - 19 08/29/2021 02/13/2022 02/23/2022 12:1 6 AM RUBBER GASKET INSPECTOR TRIMMER COVID - 19 04/03/2022 06/19/2022 06/29/2022 12:1 6 AM CDT documented as of this encounter Care Teams Tank Truck Engine Mechanic Relationship Specialty Start Date End Date Tyree Serna MD [address] [place] [address] [address] [place] [address] PCP - General Family Medicine 02/21/21 02/22/24 [place] [address] PCP - General Family Medicine 02/23/24 Nadya Harrell, ALYX, TELEPHOTO ENGINEER [address] , [facility] [address] [place] [address] Certified Nurse Practitioner 02/23/24 documented as of this encounter
--- OUTSIDE RECORDS SUMMARY | 2024-11-17 07:58 | XMS_ITS | Encounter Summary ---
Author Organization [facility] Address [address] [place] [address] Phone Care Team Providers Care Art Instructor Name Role Phone Tyree Serna MD Primary Care Provider [phone] Ilir Nunez MD Primary Care Provider [phone] Nadya Harrell APRN, GENERAL EDUCATION INSTRUCTOR Unavailable Encounter Details Date Type Department Care Team (Late st Contact Info) Description 12/12/2021 Lab Requisition [facility] Laboratory Services 1 [place] [address] Tyree Serna MD [address] [place] [address] [address] [place], [place] [id number] Encounter for screening for COVID-19 Social History [...] Associated Diagnosis Comments SARS-COV-2 BY MOLECULAR Routine 12/12/2021 8:00 AM CDT Encounter for screening for COVID-19 documented in this encounter Results * SARS-COV-2 BY MOLECULAR (12/12/2021 8:00 AM CDT) SARSCOV2 NOT DETECTED (Referen ce Range for this test is Not Detected ) [facility] THERMOFISHER FAST DX 12/13/2021 8:42 AM CDT [facility] Comment:This test was perfor med by a RT-PCR method. Other COVID 19 Home Health/ Senior Living Facility Collection / Unknown 12/12/2021 8:00 AM CDT 12/12/2021 2:11 PM CDT Narrative [facility] - 12/13/2021 8:42 AM CDT Authorized Fact Sheets about this test for providers and patients are available at: https://www.fda.gov/medical-devices/knxnfollu-ybjlbjecdb-mcsvdgp-devices/emergen -us e-authorizations us Tyree Serna MD MICROBIOLOGY - GENERAL ORDERAB LES Final Result [facility] [address] [place] [address], documented in this encounter Visit Diagnoses Diagnosis Encounter for screening for COVID-19 documented in this encounter Additional Health Concerns Infection Onset Date Last Indicated Resolved Time COVID - 19 08/29/2021 02/13/2022 02/23/2022 12:1 6 AM MAJOR APPLIANCE ASSEMBLY SUPERVISOR COVID - 19 04/03/2022 06/19/2022 06/29/2022 12:1 6 AM CDT documented as of this encounter Care Teams Art Instructor Relationship Specialty Start Date End Date Tyree Serna MD [address] [place] [address] [address] [place] [address] PCP - General Family Medicine 02/21/21 02/22/24 Ilir Nunez MD [address] [place] [address] PCP - General Family Medicine 02/23/24 Nadya Harrell, FACULTY NEUROPSYCHOLOGIST, GENERAL EDUCATION INSTRUCTOR [address], [address] [place] [address] Certified Nurse Practitioner 02/23/24 documented as of this encounter
--- OUTSIDE RECORDS SUMMARY | 2024-11-17 07:58 | XMS_ITS | Encounter Summary ---
Author Organization [facility] Address [address] [place] [address] Phone Care Team Providers Care Business Technology Teacher Name Role Phone Josie Templeton MD Primary Care Provider [phone] Nadya Harrell NP Primary Care Provider [phone] Encounter Details Date Type Department Care Team (Late st Contact Info) Description 05/24/2022 Orders Only [facility] [address] [place] [address] Scanning, Provider Social History Tobacco Use Types Packs/Day Years Used Date Smoking Tobacco: Never Smokeless Tobacco: Never PHQ-2 Answer Date Recorded PHQ-2 Total Score (If total score is 3 or more points, staff should administer the PHQ-9) 0 01/29/2022 Sex and Gender Information Value Date Recorded Sex Assigned at Not on file Legal Sex Male 9:29 AM MERCERIZER MACHINE OPERATOR Gender Identity Not on file Sexual Orientation Not on file documented as of this encounter Plan of Treatment Not on file documented as of this encounter Procedures Procedure Name Priority Date/Time Associated Diagnosis Comments SCAN - LABS 05/24/2022 documented in this encounter Results * SCAN - LABS (05/24/2022) us Provider Scanning Final Result documented in this encounter Visit Diagnoses Not on filedocumented in this encounter Care Teams Business Technology Teacher Relationship Specialty Start Date End Date Josie Templeton MD PCP - General Family Practice 01/29/22 11/26/23 Nadya Harrell NP [address] [place] [address] PCP - General Family Medicine 11/27/23 documented as of this encounter
--- OUTSIDE RECORDS SUMMARY | 2024-11-17 07:58 | XMS_ITS | Encounter Summary ---
Author Organization [facility] Address [address] [place] [address] Phone Care Team Providers Care Solar Applications Development Engineer Name Role Phone Tyree Serna MD Primary Care Provider [phone] Ilir Nunez MD Primary Care Provider [phone] Nadya Harrell APRN, PIERCING MACHINE OPERATOR Unavailable [phone] Encounter Details Date Type Department Care Team (Late st Contact Info) Description 04/10/2022 Lab Requisition [facility] Laboratory Services 1 [place] [id number] Tyree Serna MD [address] [place] [address] [place] [address] Encounter for screening for COVID-19 Social History [...] Associated Diagnosis Comments SARS-COV-2 BY MOLECULAR Routine 04/10/2022 8:25 AM LICENSED LIFE AND HEALTH AGENT Encounter for screening for COVID-19 documented in this encounter Results * SARS-COV-2 BY MOLECULAR (04/10/2022 8:25 AM LICENSED LIFE AND HEALTH AGENT) SARSCOV2 NOT DETECTED (Referen ce Range for this test is Not Detected ) [facility] THERMOFISHER FAST DX 04/10/2022 9:20 PM LICENSED LIFE AND HEALTH AGENT [facility] Comment:This test was perfor med by a RT-PCR method. Other No Phlebotomy Charged / Unknown 04/10/2022 8:25 AM LICENSED LIFE AND HEALTH AGENT 04/10/2022 10:15 AM LICENSED LIFE AND HEALTH AGENT Narrative [facility] - 04/10/2022 9:20 PM LICENSED LIFE AND HEALTH AGENT Authorized Fact Sheets about this test for providers and patients are available at: https://www.fda.gov/medical-devices/uxlvvhcce-mekpusoftw-efxnglw-devices/emergen -us e-authorizations Result [facility] us Tyree Serna MD MICROBIOLOGY - GENERAL ORDERAB LES Final Result [facility] [address] [place] [address], documented in this encounter Visit Diagnoses Diagnosis Encounter for screening for COVID-19 documented in this encounter Additional Health Concerns Infection Onset Date Last Indicated Resolved Time COVID - 19 04/03/2022 06/19/2022 06/29/2022 12:1 6 AM CDT documented as of this encounter Care Teams Solar Applications Development Engineer Relationship Specialty Start Date End Date Tyree Serna MD [address] [place] [address] [facility] [address] [place] [address] PCP - General Family Medicine 02/21/21 02/22/24 Ilir Nunez MD [address] [place] [address] PCP - General Family Medicine 02/23/24 Nadya Harrell, DRIVER SALESMAN, PIERCING MACHINE OPERATOR [address], [facility] [address] [place] [address] Certified Nurse Practitioner 02/23/24 documented as of this encounter
--- OUTSIDE RECORDS SUMMARY | 2024-11-17 07:58 | XMS_ITS | Encounter Summary ---
Author Organization [facility] Address [address] [place] [address] Phone Care Team Providers Care Cutter Aluminum Sheet Name Role Phone Tyree Serna MD Primary Care Provider [phone] Ilir Nunez MD Primary Care Provider Nadya Harrell APRN, PROBATION AND PAROLE OFFICER Unavailable Encounter Details Date Type Department Care Team (Late st Contact Info) Description 10/17/2021 Lab Requisition [facility] Laboratory Services [address] [place] [address] Tyree Serna MD [address] [place] [address] [place] [address] Encounter for screening for COVID-19 [...] Associated Diagnosis Comments SARS-COV-2 BY MOLECULAR Routine 10/17/2021 8:01 AM CDT Encounter for screening for COVID-19 documented in this encounter Results * SARS-COV-2 BY MOLECULAR (10/17/2021 8:01 AM CDT) SARSCOV2 NOT DETECTED (Referen ce Range for this test is Not Detected ) [facility] THERMOFISHER FAST DX 10/18/2021 6:13 PM CDT [facility] Comment:This test was perfor med by a RT-PCR method. Other Non-Phlebotomy Collection / Unknown 10/17/2021 8:01 AM CDT 10/17/2021 11:26 AM CDT Narrative [facility] - 10/18/2021 6:13 PM CDT Authorized Fact Sheets about this test for providers and patients are available at: https://www.fda.gov/medical-devices/mlpcklhps-aeqccnfgdl-ckmmfsj-devices/emergen cy-us e-authorizations us Tyree Serna MD MICROBIOLOGY - GENERAL ORDERAB LES Final Result [facility] [address] [place] [address], documented in this encounter Visit Diagnoses Diagnosis Encounter for screening for COVID-19 documented in this encounter Additional Health Concerns Infection Onset Date Last Indicated Resolved Time COVID - 19 08/29/2021 02/13/2022 02/23/2022 12:1 6 AM BELLHOP CAPTAIN COVID - 19 04/03/2022 06/19/2022 06/29/2022 12:1 6 AM CDT documented as of this encounter Care Teams Cutter Aluminum Sheet Relationship Specialty Start Date End Date Tyree Serna MD [address] [place] [address] PCP - General Family Medicine 02/21/21 02/22/24 [place] [address] PCP - General Family Medicine 02/23/24 Nadya Harrell, WRAPPER LEAF INSPECTOR, PROBATION AND PAROLE OFFICER [address], [address] [address] Certified Nurse Practitioner 02/23/24 documented as of this encounter
--- OUTSIDE RECORDS SUMMARY | 2024-11-17 07:59 | XMS_ITS | Encounter Summary ---
Author Organization [facility] Address [address] [place] [address] Phone Care Team Providers Care Purchasing Supervisor Name Role Phone Tyree Serna MD Primary Care Provider [phone] Ilir Nunez MD Primary Care Provider [phone] Nadya Harrell APRN, MANAGER OF SECURITY Unavailable Encounter Details Date Type Department Care Team (Late st Contact Info) Description 12/19/2021 Lab Requisition [facility] Laboratory Services [address] [place] [address] Tyree Serna MD [address] [place] [address] [address] [place], [place] [id number] Encounter for screening for COVID-19 Social History [...] Associated Diagnosis Comments SARS-COV-2 BY MOLECULAR Routine 12/19/2021 8:02 AM CDT Encounter for screening for COVID-19 documented in this encounter Results * SARS-COV-2 BY MOLECULAR (12/19/2021 8:02 AM CDT) SARSCOV2 NOT DETECTED (Referen ce Range for this test is Not Detected ) [facility] THERMOFISHER FAST DX 12/19/2021 6:17 PM CDT [facility] Comment:This test was perfor med by a RT-PCR method. Other Non-Phlebotomy Collection / Unknown 12/19/2021 8:02 AM CDT 12/19/2021 10:08 AM CDT Narrative [facility] - 12/19/2021 6:17 PM CDT Authorized Fact Sheets about this test for providers and patients are available at: https://www.fda.gov/medical-devices/ekzaraiiy-bknfzjzcfl-qysxgki-devices/emergen -us e-authorizations us Tyree Serna MD MICROBIOLOGY - GENERAL ORDERAB LES Final Result [facility] [address] [place] [address], documented in this encounter Visit Diagnoses Diagnosis Encounter for screening for COVID-19 documented in this encounter Additional Health Concerns Infection Onset Date Last Indicated Resolved Time COVID - 19 08/29/2021 02/13/2022 02/23/2022 12:1 6 AM OIL FURNACE INSTALLER COVID - 19 04/03/2022 06/19/2022 06/29/2022 12:1 6 AM CDT documented as of this encounter Care Teams Purchasing Supervisor Relationship Specialty Start Date End Date Tyree Serna MD [address] [place] [address] [address] [place] [address] PCP - General Family Medicine 02/21/21 02/22/24 Ilir Nunez MD [address] [place] [address] PCP - General Family Medicine 02/23/24 Nadya Harrell, MANAGER SUPPLY CHAIN PLANNING, MANAGER OF SECURITY [address], [address] [address] Certified Nurse Practitioner 02/23/24 documented as of this encounter
--- OUTSIDE RECORDS SUMMARY | 2024-11-17 07:59 | XMS_ITS | Encounter Summary ---
Author Organization [facility] Address [address] [place] [address] Phone Care Team Providers Care Civil Drafting Technician Name Role Phone Tyree Serna MD Primary Care Provider [phone] Ilir Nunez MD Primary Care Provider [phone] Nadya Harrell APRN, ELECTRONIC ENGINEERING DRAFTSPERSON Unavailable [phone] Encounter Details Date Type Department Care Team (Late st Contact Info) Description 01/16/2022 Lab Requisition [facility] Laboratory Services [address] [place] [address] Tyree Serna MD [address] [place] [address] [address] [place], [place] [id number] Encounter for screening for COVID-19 Social History [...] Associated Diagnosis Comments SARS-COV-2 BY MOLECULAR Routine 01/16/2022 8:40 AM CDT Encounter for screening for COVID-19 documented in this encounter Results * SARS-COV-2 BY MOLECULAR (01/16/2022 8:40 AM CDT) SARSCOV2 NOT DETECTED (Referen ce Range for this test is Not Detected ) [facility] THERMOFISHER FAST DX 01/17/2022 12:18 AM CDT [facility] Comment:This test was perfor med by a RT-PCR method. Other Non-Phlebotomy Collection / Unknown 01/16/2022 8:40 AM CDT 01/16/2022 11:09 AM CDT Narrative [facility] - 01/17/2022 12:18 AM CDT Authorized Fact Sheets about this test for providers and patients are available at: https://www.fda.gov/medical-devices/gdhcpamoo-sjdejdqpgl-uaxqqqw-devices/emergen -us e-authorizations us Tyree Serna MD MICROBIOLOGY - GENERAL ORDERAB LES Final Result [facility] [address] [place] [address], documented in this encounter Visit Diagnoses Diagnosis Encounter for screening for COVID-19 documented in this encounter Additional Health Concerns Infection Onset Date Last Indicated Resolved Time COVID - 19 08/29/2021 02/13/2022 02/23/2022 12:1 6 AM SALES ACCOUNT REPRESENTATIVE COVID - 19 04/03/2022 06/19/2022 06/29/2022 12:1 6 AM CDT documented as of this encounter Care Teams Civil Drafting Technician Relationship Specialty Start Date End Date Tyree Serna MD [address] [place] [address] [address] [place] [address] PCP - General Family Medicine 02/21/21 02/22/24 Ilir Nunez MD [address] [place] [address] PCP - General Family Medicine 02/23/24 Nadya Harrell, MANAGER COMMERCIAL SALES, ELECTRONIC ENGINEERING DRAFTSPERSON [address], [address] [address] Certified Nurse Practitioner 02/23/24 documented as of this encounter
--- OUTSIDE RECORDS SUMMARY | 2024-11-17 07:59 | XMS_ITS | Encounter Summary ---
Author Organization [facility] Address [address] [place] [address] Phone Care Team Providers Care Internal Controls Manager Name Role Phone Tyree Serna MD Primary Care Provider [phone] Ilir Nunez MD Primary Care Provider [phone] Nadya Harrell APRN, MANAGER DEVELOPMENT Unavailable [phone] Encounter Details Date Type Department Care Team (Late st Contact Info) Description 12/26/2021 Lab Requisition [facility] Laboratory Services [address] [place] [address] Tyree Serna MD [address] [place] [address] [address] [place], [place] [id number] Encounter for screening for COVID-19 Social History [...] Associated Diagnosis Comments SARS-COV-2 BY MOLECULAR Routine 12/26/2021 8:13 AM CDT Encounter for screening for COVID-19 documented in this encounter Results * SARS-COV-2 BY MOLECULAR (12/26/2021 8:13 AM CDT) SARSCOV2 NOT DETECTED (Referen ce Range for this test is Not Detected ) [facility] THERMOFISHER FAST DX 12/27/2021 10:[address] [facility] Comment:This test was perfor med by a RT-PCR method. Other No Phlebotomy Charged / Unknown 12/26/2021 8:13 AM CDT 12/26/2021 11:[address] [facility] - 12/27/2021 10:23 AM CDT Authorized Fact Sheets about this test for providers and patients are available at: https://www.fda.gov/medical-devices/udkhywlgw-nmeocpkmyv-fpttgao-devices/emergen -us e-authorizations us Tyree Serna MD MICROBIOLOGY - GENERAL ORDERAB LES Final Result [facility] [address] [place] [address], documented in this encounter Visit Diagnoses Diagnosis Encounter for screening for COVID-19 documented in this encounter Additional Health Concerns Infection Onset Date Last Indicated Resolved Time COVID - 19 08/29/2021 02/13/2022 02/23/2022 12:1 6 AM PIPE FITTER MAINTENANCE COVID - 19 04/03/2022 06/19/2022 06/29/2022 12:1 6 AM CDT documented as of this encounter Care Teams Internal Controls Manager Relationship Specialty Start Date End Date Tyree Serna MD [address] [place] [address] [address] [place] [address] PCP - General Family Medicine 02/21/21 02/22/24 Ilir Nunez MD [address] [place] [address] PCP - General Family Medicine 02/23/24 Nadya Harrell, MUNICIPAL ENGINEER, MANAGER DEVELOPMENT [address], [facility] [address] [place] [address] Certified Nurse Practitioner 02/23/24 documented as of this encounter
--- OUTSIDE RECORDS SUMMARY | 2024-11-17 07:59 | XMS_ITS | Encounter Summary ---
Author Organization [facility] Address [address] [place] [address] Phone Care Team Providers Care Welfare Investigator Name Role Phone Tyree Serna MD Primary Care Provider [phone] Ilir Nunez MD Primary Care Provider Nadya Harrell APRN, PAINTING TECHNICIAN Unavailable [phone] Encounter Details Date Type Department Care Team (Late st Contact Info) Description 02/06/2022 Lab Requisition [facility] Laboratory Services [address] [place] [address] Tyree Serna MD [address] [place] [address] [address] [place], [place] [phone] Encounter for screening for COVID-19 Social History [...] Associated Diagnosis Comments SARS-COV-2 BY MOLECULAR Routine 02/06/2022 8:58 AM CDT Encounter for screening for COVID-19 documented in this encounter Results * SARS-COV-2 BY MOLECULAR (02/06/2022 8:58 AM CDT) SARSCOV2 NOT DETECTED (Referen ce Range for this test is Not Detected ) [facility] THERMOFISHER FAST DX 02/07/2022 12:00 AM CDT [facility] Comment:This test was perfor med by a RT-PCR method. Other Non-Phlebotomy Collection / Unknown 02/06/2022 8:58 AM CDT 02/06/2022 11:01 AM CDT Narrative [facility] - 02/07/2022 12:00 AM CDT Authorized Fact Sheets about this test for providers and patients are available at: https://www.fda.gov/medical-devices/dwjbwoaef-dnrqtxwgzn-mukouen-devices/emergen -us e-authorizations us Tyree Serna MD MICROBIOLOGY - GENERAL ORDERAB LES Final Result [facility] [address] [place] [address], documented in this encounter Visit Diagnoses Diagnosis Encounter for screening for COVID-19 documented in this encounter Additional Health Concerns Infection Onset Date Last Indicated Resolved Time COVID - 19 08/29/2021 02/13/2022 02/23/2022 12:1 6 AM MEDICATION ASSISTANT COVID - 19 04/03/2022 06/19/2022 06/29/2022 12:1 6 AM CDT documented as of this encounter Care Teams Welfare Investigator Relationship Specialty Start Date End Date Tyree Serna MD [address] [place] [address] [address] [place] [address] PCP - General Family Medicine 02/21/21 02/22/24 Ilir Nunez MD [address] [place] [address] PCP - General Family Medicine 02/23/24 Nadya Harrell, BRIM PLATER, PAINTING TECHNICIAN [address], [address] [address] Certified Nurse Practitioner 02/23/24 documented as of this encounter
--- OUTSIDE RECORDS SUMMARY | 2024-11-17 07:59 | XMS_ITS | Encounter Summary ---
Author Organization [facility] Address [address] [place] [address] Phone Care Team Providers Care Ambulette Driver Name Role Phone Tyree Serna MD Primary Care Provider [phone] Ilir Nunez MD Primary Care Provider [phone] Nadya Harrell APRN, CAR BODY INSPECTOR Unavailable Encounter Details Date Type Department Care Team (Late st Contact Info) Description 01/23/2022 Lab Requisition [facility] Laboratory Services [address] [place] [address] Tyree Serna MD [address] [place] [address] [address] [place], [place] [id number] Encounter for screening for COVID-19 Social History [...] Associated Diagnosis Comments SARS-COV-2 BY MOLECULAR Routine 01/23/2022 8:32 AM CDT Encounter for screening for COVID-19 documented in this encounter Results * SARS-COV-2 BY MOLECULAR (01/23/2022 8:32 AM CDT) SARSCOV2 NOT DETECTED (Referen ce Range for this test is Not Detected ) [facility] THERMOFISHER FAST DX 01/23/2022 11:59 PM CDT [facility] Comment:This test was perfor med by a RT-PCR method. Other Non-Phlebotomy Collection / Unknown 01/23/2022 8:32 AM CDT 01/23/2022 11:58 AM CDT Narrative [facility] - 01/23/2022 11:59 PM CDT Authorized Fact Sheets about this test for providers and patients are available at: https://www.fda.gov/medical-devices/wxfmeumie-klmsyitarq-sawhrha-devices/emergen -us e-authorizations us Tyree Serna MD MICROBIOLOGY - GENERAL ORDERAB LES Final Result [facility] [address] [place] [address], documented in this encounter Visit Diagnoses Diagnosis Encounter for screening for COVID-19 documented in this encounter Additional Health Concerns Infection Onset Date Last Indicated Resolved Time COVID - 19 08/29/2021 02/13/2022 02/23/2022 12:1 6 AM MARITIME OFFICER COVID - 19 04/03/2022 06/19/2022 06/29/2022 12:1 6 AM CDT documented as of this encounter Care Teams Ambulette Driver Relationship Specialty Start Date End Date Tyree Serna MD [address] [place] [address] [address] [place] [address] PCP - General Family Medicine 02/21/21 02/22/24 Ilir Nunez MD [address] [place] [address] PCP - General Family Medicine 02/23/24 Nadya Harrell, POWDER MIXER, CAR BODY INSPECTOR [address], [address] [address] Certified Nurse Practitioner 02/23/24 documented as of this encounter
--- OUTSIDE RECORDS SUMMARY | 2024-11-17 07:59 | XMS_ITS | Encounter Summary ---
Author Organization [facility] Address [address] [place] [address] Phone Care Team Providers Care Head Still Operator Name Role Phone Tyree Serna MD Primary Care Provider [phone] Ilir Nunez MD Primary Care Provider [phone] Nadya Harrell APRN, CYBER FORENSICS ANALYST Unavailable Encounter Details Date Type Department Care Team (Late st Contact Info) Description 01/09/2022 Lab Requisition [facility] Laboratory Services [address] [place] [address] Tyree Serna MD [address] [place] [address] [address] [place], [place] [id number] Encounter for screening for COVID-19 Social History [...] Associated Diagnosis Comments SARS-COV-2 BY MOLECULAR Routine 01/09/2022 8:44 AM CDT Encounter for screening for COVID-19 documented in this encounter Results * SARS-COV-2 BY MOLECULAR (01/09/2022 8:44 AM CDT) SARSCOV2 NOT DETECTED (Referen ce Range for this test is Not Detected ) [facility] THERMOFISHER FAST DX 01/10/2022 12:29 AM CDT [facility] Comment:This test was perfor med by a RT-PCR method. Other No Phlebotomy Charged / Unknown 01/09/2022 8:44 AM CDT 01/09/2022 1:26 PM CDT Narrative [facility] - 01/10/2022 12:29 AM CDT Authorized Fact Sheets about this test for providers and patients are available at: https://www.fda.gov/medical-devices/usjhpwfyp-jsjyobreva-ppvcbwx-devices/emergen -us e-authorizations us Tyree Serna MD MICROBIOLOGY - GENERAL ORDERAB LES Final Result [facility] [address] [place] [address], documented in this encounter Visit Diagnoses Diagnosis Encounter for screening for COVID-19 documented in this encounter Additional Health Concerns Infection Onset Date Last Indicated Resolved Time COVID - 19 08/29/2021 02/13/2022 02/23/2022 12:1 6 AM 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
--- OUTSIDE RECORDS SUMMARY | 2024-11-17 07:59 | XMS_ITS | Encounter Summary ---
Author Organization [facility] Address [address] [place] [address] Phone Care Team Providers Care Field Technical Specialist Name Role Phone Tyree Serna MD Primary Care Provider [phone] Ilir Nunez MD Primary Care Provider [phone] Nadya Harrell APRN, STOCK CRANE OPERATOR Unavailable [phone] Encounter Details Date Type Department Care Team (Late st Contact Info) Description 02/13/2022 Lab Requisition [facility] Laboratory Services [address] [place] [address] Tyree Serna MD [address] [place] [address] [address] [place], [place] [id number] Encounter for screening for COVID-19 Social History [...] Associated Diagnosis Comments SARS-COV-2 BY MOLECULAR Routine 02/13/2022 9:50 AM PUBLIC EMPLOYMENT MEDIATOR Encounter for screening for COVID-19 documented in this encounter Results * SARS-COV-2 BY MOLECULAR (02/13/2022 9:50 AM PUBLIC EMPLOYMENT MEDIATOR) SARSCOV2 NOT DETECTED (Referen ce Range for this test is Not Detected ) [facility] THERMOFISHER FAST DX 02/14/2022 4:42 AM PUBLIC EMPLOYMENT MEDIATOR [facility] Comment:This test was perfor med by a RT-PCR method. Other Non-Phlebotomy Collection / Unknown 02/13/2022 9:50 AM PUBLIC EMPLOYMENT MEDIATOR 02/13/2022 11:17 AM PUBLIC EMPLOYMENT MEDIATOR Narrative [facility] - 02/14/2022 4:42 AM PUBLIC EMPLOYMENT MEDIATOR Authorized Fact Sheets about this test for providers and patients are available at: https://www.fda.gov/medical-devices/pzkocguke-unwmgrntji-tlttwjs-devices/emergen -us e-authorizations us Tyree Serna MD MICROBIOLOGY - GENERAL ORDERAB LES Final Result [facility] [address] [place] [address], documented in this encounter Visit Diagnoses Diagnosis Encounter for screening for COVID-19 documented in this encounter Additional Health Concerns Infection Onset Date Last Indicated Resolved Time COVID - 19 08/29/2021 02/13/2022 02/23/2022 12:1 6 AM PUBLIC EMPLOYMENT MEDIATOR COVID - 19 04/03/2022 06/19/2022 06/29/2022 12:1 6 AM CDT documented as of this encounter Care Teams Field Technical Specialist Relationship Specialty Start Date End Date Tyree Serna MD [address] [place] [address] [address] [place] [address] PCP - General Family Medicine 02/21/21 02/22/24 Ilir Nunez MD [address] [place] [address] PCP - General Family Medicine 02/23/24 Nadya Harrell, ISOLATION WASHER, STOCK CRANE OPERATOR [address], [facility] [address] [place] [address] Certified Nurse Practitioner 02/23/24 documented as of this encounter
--- OUTSIDE RECORDS SUMMARY | 2024-11-17 07:59 | XMS_ITS | Clinical Summary ---
Author Organization [facility] Address [address] [place] [address] Care Team Providers Care Allergist/Md Name Role Phone Unavailable Primary Care Provider Unavailabl e Source Comments [facility],non-owned Affiliates and Associated Physician Practices is amultiple site organization consisting of ambulatory clinics and hospital sitesin [place], [place], [place] and [place]. This disclosure is being madepursuant to the Care Everywhere program and may not contain all information available regarding this patient. Last updated 17.[facility] Allergies No known active allergies Medications * This document contains information received from the source organization and may not represent a complete record from that organization. * Be aware that medications may not be up to date on this document. Alwaysverify current medications with the patient. OXcarbazepine (TRILEPTAL) 150 MG tabletIndications: Bipolar Mood Disorder Take 1 Tab by mouth 2 times daily. Indications: Manic-Depression 60 Tab 1 10/14/19 14 Active benztropine (COGENTIN) 1 MG tabletIndications: Drug-Induced Extrapyramidal Reaction Take 1 Tab by mouth 2 times daily. Indications: Extrapyramidal Reaction caused by Medications 60 Tab 1 10/14/19 14 Active lithium CR (ESKALITH CR) 450 MG tabletIndications: Bipolar Mood Disorder Take 1 Tab by mouth 2 times daily. Indications: Manic-Depression 60 Tab 1 10/14/19 14 Active risperiDONE (RISPERDAL) 3 MG tabletIndications: Bipolar Mood Disorder,psychosis Take 1 Tab by mouth 2 times daily. Indications: Manic-Depression, psychosis 60 Tab 1 10/14/19 14 Active Active Problems Problem Noted Date Diagnosed Date Psychosis 08/15/2013 Bipolar disorder 02/25/2013 Pervasive developmental disorder 06/26/2011 Autism Immunizations Immunization Administration Dates Next Due INFLUENZA VACCINE 01/26/2013 PNEUMOCOCCAL PPSV23 04/05/2013 Family History Medical History Relation Name Comments Depression Brother Diabetes Father Arthritis - Rheumatoid Maternal Grandmother Diabetes Maternal Uncle Stroke Maternal Uncle Diabetes Mother Relation Name Status Comments Brother Father Alive Maternal Grandmother Maternal Uncle Mother Social History Tobacco Use Types Packs/Day Years Used Date Smoking Tobacco: Every Day Cigarettes 1 8 Tobacco Cessation:Ready to Q uit: No; Counseling Given: Yes Alcohol Use Standard Drinks/Week Comments No 0 (1 standard drink = 0.6 oz pur e alcohol) 1 gallon of beer/wk Sex and Gender Information Value Date Recorded Sex Assigned at Not on file Legal Sex 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 Gender Identity Not on file Sexual Orientation Not on file Last Filed Vital Signs Vital Sign Reading Time Taken Comments Blood Pressure 133/75 10/13/2013 1:52 PM CDT Pulse 95 10/13/2013 1:52 PM CDT Temperature 36.5 C (97.7 F) 10/13/2013 1:52 PM CDT Respiratory Rate 18 10/13/2013 1:52 PM CDT Oxygen Saturation 96% 10/13/2013 1:52 PM CDT Inhaled Oxygen Concentration - - Weight 95.3 kg (210 lb) 09/28/2013 8:00 AM CDT Height 182.9 cm (6') 09/13/2013 8:48 PM CDT Body Mass Index 28.48 09/13/2013 8:48 PM CDT Plan of Treatment Health Maintenance Due Date Last Done Comments HIV SCREENING 2004 HEPATITIS C SCREENING 10/27/2007 DTAP/TDAP/TD VACCINES (1 - Tdap) 2008 HEPATITIS B VACCINE (1 of 3 - 19+ 3-dose series) 2008 MEDICARE AWV 12 MONTHS 06/25/2012 06/26/2011 PNEUMOCOCCAL VACCINE (2 of 2 - PCV) 04/05/2014 04/05/2013 HPV VACCINE (1 - 3-dose SCDM series) 2016 COVID-19 VACCINE (2023-2 5 season) 2023 INFLUENZA VACCINE (#1) 2024 01/26/2013 ZOSTER VACCINE (1 of 2) 11/01/2039 HIB VACCINE Aged Out No longer eligi ble based on patient's age to complete this topic MENINGOCOCCAL (Group B) VACC INE SHARED DECISION-MAKING Aged Out No longer eligibl e based on patient's age to complete this topic MENINGOCOCCAL GROUPS A/C/Y/W VACCINE Aged Out No longer eligible b ased on patient's age to complete this topic Insurance [place] - [facility] MEDICARE MED[place]ID [place] Advance Directives * Full Code (Latest Code Status on File) Date Activated Date Inactivated Comments 09/13/2013 10:32 PM 10/13/2013 6:33 PM * Full Code Date Activated Date Inactivated Comments 08/15/2013 4:19 AM 08/25/2013 5:06 PM * Full Code Date Activated Date Inactivated Comments 07/18/2013 10:03 PM 08/02/2013 6:09 PM * FULL RESUSCITATION Date Activated Date Inactivated Comments 04/04/2013 5:05 AM 04/06/2013 9:33 PM * FULL RESUSCITATION Date Activated Date Inactivated Comments 02/23/2013 11:51 PM 03/02/2013 2:40 PM
--- OUTSIDE RECORDS SUMMARY | 2024-11-17 07:59 | XMS_ITS | Encounter Summary ---
Author Organization [facility] Address [address] [place] [address] Phone Care Team Providers Care Hydrometer Calibrator Name Role Phone Tyree Serna MD Primary Care Provider [phone] Ilir Nunez MD Primary Care Provider [phone] Nadya Harrell APRN, INSURANCE PROCESSING CLERK Unavailable [phone] Encounter Details Date Type Department Care Team (Late st Contact Info) Description 01/30/[address] [facility] [address] [place] [address] Tyree Serna MD [address] [place] [address] [address] [place], [place] [id number] Encounter for screening for COVID-19 Social History [...] Associated Diagnosis Comments SARS-COV-2 BY MOLECULAR Routine 01/30/2022 8:47 AM CDT Encounter for screening for COVID-19 documented in this encounter Results * SARS-COV-2 BY MOLECULAR (01/30/2022 8:47 AM CDT) SARSCOV2 NOT DETECTED (Referen ce Range for this test is Not Detected ) [facility] FA[facility] DX 01/31/2022 12:21 AM CDT [facility] Comment:This test was perfor med by a RT-PCR method. Other Non-Phlebotomy Collection / Unknown 01/30/2022 8:47 AM CDT 01/30/2022 11:51 AM CDT Narrative [facility] - 01/31/2022 12:21 AM CDT Authorized Fact Sheets about this test for providers and patients are available at: https://www.fda.gov/medical-devices/gagzfpeyr-xbwqdaeiov-aamynjw-devices/emergen -us e-authorizations us Tyree Serna MD MICROBIOLOGY - GENERAL ORDERAB LES Final Result [facility] [address] [place] [address], documented in this encounter Visit Diagnoses Diagnosis Encounter for screening for COVID-19 documented in this encounter Additional Health Concerns Infection Onset Date Last Indicated Resolved Time COVID - 19 08/29/2021 02/13/2022 02/23/2022 12:1 6 AM 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
== END 2024-11-17 07:55 | disposition home or self-care (01) ==
PROVIDERS: PCP Family Medicine; Visit Provider Family Medicine
DX: H91.3 Deaf nonspeaking, not elsewhere classified (principal)
CPT/HCPCS: 92557; 92567